=== PATIENT | female | born 1950 | race Caucasian/White ===

== ENCOUNTER 2022-08-12 19:21 | Inpatient (IN) | payer MEDICARE, SELFPAY ==
[2022-08-12] VITALS (53 sets, daily range): BP systolic 88–209; BP diastolic 56–122; PULSE 79–116; RESP 20–44; TEMP 35.9–36.1; O2SAT 46–100; BMI 40.6; BMI 38.6
--- NOTE | 2022-08-12 | CRLHL7_ITS ---
For Patients: As a result of the Century Cures Act, medical imaging exams and procedure reports are released immediately into your electronic medical record. You may view this report before your referring provider. If you have questions, please contact your health care provider. Indication: Shortness of breath Technique: Chest 1 view Comparison: March 11, 2015 Findings/Impression: Stable cardiac size. Diffusely increased interstitial markings throughout the lungs reflect edema infection. No pneumothorax or effusion. Status post bilateral shoulder arthroplasty. Dictated by Joana Flores MD @ 08/12/2022 7:45:39 PM (Electronically Signed)
[2022-08-12] MEDS: NITROGLYCERIN 0.4 MG TAB.SUBL SUBLINGUAL (19:43)
[2022-08-12] MEDS: FUROSEMIDE 10 MG/ML inj 20 MG IVP (19:43)
[2022-08-12 19:55] LABS: Troponin, Point-of-Care* 0.01 ng/ml (0.01-0.04)
[2022-08-12 20:01] LABS: Basophils Percent Auto 0.3 % (0.0-3.0); Eosinophils Percent Auto 2.8 % (0.0-7.0); Hematocrit 47.6 % (33.0-51.0); Hemoglobin* 15.8 gm/dL (12.0-16.0); Immature Granulocytes Pct Auto 0.3 %; Lymphocytes Percent Auto 18.6 % (20-44); Mean Corpuscular HGB Conc 33 gm/dL (32-36); Mean Corpuscular Hemoglobin 30 pg (26-34); Mean Corpuscular Volume 91 fL (80-100); Monocytes Percent Auto 6.5 % (0.0-11.0); Neutrophils Percent Auto 71.5 % (42.0-72.0); Platelet Count* 221 K/uL (140-440); RDW Coefficient of Variation % 13.1 % (11.5-15.5); Red Blood Count 5.22 m/uL (4.00-5.20); White Blood Count* 14.82 K/uL (4.50-11.00)
[2022-08-12 20:15] LABS: Slide Review Reflex No
[2022-08-12 20:19] LABS: D Dimer Quantitative* 0.81 ug/ml (0.00-0.50)
--- NOTE | 2022-08-12 20:28 | ED.NURSE ---
1924: BiPAP applied 10/5 Fio2 100% 1926: Oral suction-small amount of secretion. BiPap reapplied 1929: 18g L Forearm 1930: 18g R AC-labs drawn 1931: EKG Complete 1934: Portable chest X-Ray completed
[2022-08-12 20:32] LABS: Troponin I* 0.02 ng/mL (0.01-0.04)
[2022-08-12 20:41] LABS: PCR FLU A Negative PCR FLU A (Negative); PCR FLU B Negative PCR FLU B (Negative); PCR RSV Negative PCR RSV (Negative); SARS PCR* Negative SARS-CoV-2 (Negative)
[2022-08-12 20:42] LABS: HCO3 VBG 23 mmol/L (21-28); PCO2 VBG 54 mmHG (40-50); PO2 VBG 57.5 mmHG (25-47); pH VBG 7.244 (7.32-7.43)
--- NOTE | 2022-08-12 20:51 | ED_ITS ---
HPI - SOB/Dyspnea General Chief Complaint: Shortness of Breath/Dyspnea Stated Complaint: Shortness of breath Time Seen by Provider: 08/12/22 19:36 History of Present Illness HPI Narrative: 72-year-old woman presenting accompanied by her to the emergency department wheeled in groaning in apparent dyspnea. She became more abruptly short of air this afternoon with some left upper chest pain which is not very severe and not clearly pleuritic. Has had some degree of cold symptoms over at least a few weeks. Was seen 2 weeks ago noted to have some crepitus on exam along with some trace wheeze and given albuterol inhaler and azithromycin; thought to have pneumonia. Still with cough and rhinorrhea followed up yesterday and given benzonatate and refilled for albuterol. No fevers. Has screen negative on triple screen in both of these recent visits. Denies a history of pulmonary disease. She did quit smoking about 30 years ago. There is a history of CVA and venous thrombus of some sort-sounds like this was an obstetrical complication-and does have a diagnosis of sleep apnea and has been using her CPAP. She continues to take clopidogrel. Denies a history of coronary artery disease. Has not noted any recent weight fluctuations. Related Data Home Medications Medication Instructions Recorded Confirmed atenolol 50 mg tablet 50 mg PO .COMPLEX 07/10/22 08/12/22 atorvastatin 10 mg tablet 10 mg PO DAILY 07/10/22 08/12/22 clopidogrel 75 mg tablet 75 mg PO QAM 07/10/22 08/12/22 lisinopril 20 mg tablet 20 mg PO DAILY 07/10/22 08/12/22 omeprazole 40 mg capsule,delayed 40 mg PO DAILY 07/10/22 08/12/22 release triamcinolone acetonide 0.1 % 1 applic topical BID PRN 07/10/22 08/12/22 topical cream Previous Rx's Medication Instructions Recorded albuterol sulfate 90 mcg/actuation 2 puff inhalation Q4-6H PRN 08/11/22 aerosol inhaler shortness of breath or wheezing #8.5 grams benzonatate 100 mg capsule 100 mg PO BID-TID PRN cough #14 08/11/22 caps Allergies Allergy/AdvReac Type Severity Reaction Status Date / Time adhesive tape Allergy Unknown Verified 08/12/22 21:35 ibuprofen Allergy Unknown Verified 08/12/22 21:35 meperidine [From Demerol] Allergy Unknown Verified 08/12/22 21:35 nickel Allergy Unknown Verified 08/12/22 21:35 oxycodone AdvReac Mild weird Verified 08/12/22 21:35 dreams hydrocodone AdvReac weird Verified 08/12/22 21:35 dreams Review of Systems Status of ROS: Reports: 10 or more systems reviewed and unremarkable except as noted in History and below PFSH PFS Medical History (Updated 08/12/22 @ 21:41 by Erickson Montalvo MD) Acute gastric ulcer Carpal tunnel syndrome Chronic eczema CVA (cerebral vascular accident) Cystocele DVT (deep venous thrombosis) Hearing loss, bilateral History of anemia Hypertension Ischemic stroke SELINA on CPAP Surgical History (Updated 08/12/22 @ 21:22 by Selena Cook MD) H/O vaginal hysterectomy History of total left knee replacement History of total replacement of left shoulder joint Hx of appendectomy Social History Smoking Status: Former smoker Exam Narrative: Exam Narrative: Is clearly uncomfortable. Fatigued. Groaning in discomfort. Quite tachypneic. Quite labored in breathing. Looks pale or little [place] on her face. Not diaphoretic. I evaluate her during triage and cardiac room. Presenting with oxygen saturation at 46% is already being transitioned to BiPAP. Okay oropharynx is a little sticky. Audible crepitus throughout lungs. Auscultation reveals same but no wheeze. Heart is tachycardic and appears to be in a regular rhythm. Pain is not reproducible to palpation over the chest wall. Lower extremities with mild pretibial pitting edema and mild discoloration of venous stasis. Abdomen is overweight soft and nontender. Const: Vital Signs, click to edit/add: Vital Signs - 24 hr 08/12/22 19:31 08/12/22 19:30 Temperature 97.0 F L Pulse Rate [Pulse Oximeter] 116 H Respiratory Rate 36 H Blood Pressure [Le ft Upper Arm] 209/122 H Pulse Oximetry 46 L 46 L Oxygen Delivery Me thod Room Air Documenting provider has reviewed patient's vital signs: yes Course Vital Signs Vital signs: Initial Vital Signs Pulse Oximetry 46 L 01/13/23 19:30 Vital Signs Pulse Oximetry 46 L 08/12/22 19:30 Temperature 97.0 F L 08/12/22 19:31 Pulse Rate 116 H 08/12/22 19:31 Respiratory Rate 36 H 08/12/22 19:31 Blood Pressure 209/122 H 08/12/22 19:31 Pulse Oximetry 46 L 08/12/22 19:31 Oxygen Delivery Method 08/12/22 19:31 MDM - SOB/Dyspnea MDM Narrative Medical decision making narrative: Placed on BiPAP. Oxygenation rapidly improves. Able to titrate down relatively quickly. Coloration improves. Appears more mentally alert as well. Calmer. I do review initial chest x-ray one view portable which appears to show diffuse and markedly increased interstitial markings. I do not appreciate effusion. Possibly some mild cardiomegaly though recumbent portable. Does not have an underlying diagnosis of heart failure however I do order 20 mg of IV Lasix and a nitroglycerin noting rather elevated initial blood pressures as well. Also given DuoNeb. I believe as she became more comfortable blood pressure also dropped to I believe 1-teens over 60s Differential includes CHF exacerbation, exacerbation of URI with rapid pulmonary edema, pneumonia, pulmonary embolus, ischemic cardiac event. Does indeed have mildly elevated D-dimer in the setting of elevated white count at over 14,000. Venous blood gas initially with a pH of 7.24; respiratory acidosis. Have spoken with our hospitalist anticipating admission. Will be receiving a CTA of the chest. Attempted to use commode off BiPAP briefly but desaturated. Venous blood gas is markedly improved on recheck. Chest CTA is pending at time of handoff. Medical Records Attestation: I reviewed the patient's medical records. Lab Data Attestation: I reviewed the patient's lab results. Labs: Lab Results 08/12/22 08/12/22 08/12/22 Range/Units 19:30 19:30 19:30 WBC 14.82 H (4.50-11.00) K/uL RBC 5.22 H (4.00-5.20) m/uL Hgb 15.8 (12.0-16.0) gm/dL Hct 47.6 (33.0-51.0) % MCV 91 (80-100) fL MCH 30 (26-34) pg MCHC 33 (32-36) gm/dL RDW Coeff of Zack 13.1 (11.5-15.5) % Plt Count 221 (140-440) K/uL Neut % (Auto) 71.5 (42.0-72.0) % Lymph % (Auto) 18.6 L (20-44) % [place] % (Auto) 6.5 (0.0-11.0) % Eos % (Auto) 2.8 (0.0-7.0) % Baso % (Auto) 0.3 (0.0-3.0) % Neut # (Auto) 10.60 H (1.7-7.0) K/uL Lymph # (Auto) 2.80 (0.90-2.90) K/uL [place] # (Auto) 1.00 H (0.00-0.90) K/UL Eos # (Auto) 0.40 (0.00-0.50) K/uL Baso # (Auto) 0.00 (0.00-0.30) K/uL D-Dimer Quant (PE/DVT) 0.81 H (0.00-0.50) ug/ml VBG pH (7.32-7.43) VBG pCO2 (40-50) mmHG VBG pO2 (25-47) mmHG VBG HCO3 (21-28) mmol/L Troponin I (0.01-0.04) ng/mL SARS-CoV-2 (PCR) Negative SARS-CoV-2 (Negative) Influenza Type A (PCR) Negative PCR FLU A (Negative) Influenza Type B (PCR) Negative PCR FLU B (Negative) RSV (PCR) Negative PCR RSV (Negative) POC Troponin I (0.01-0.04) ng/ml 08/12/22 08/12/22 08/12/22 Range/Units 19:30 19:30 19:30 WBC (4.50-11.00) K/uL RBC (4.00-5.20) m/uL Hgb (12.0-16.0) gm/dL Hct (33.0-51.0) % MCV (80-100) fL MCH (26-34) pg MCHC (32-36) gm/dL RDW Coeff of Zack (11.5-15.5) % Plt Count (140-440) K/uL Neut % (Auto) (42.0-72.0) % Lymph % (Auto) (20-44) % [place] % (Auto) (0.0-11.0) % Eos % (Auto) (0.0-7.0) % Baso % (Auto) (0.0-3.0) % Neut # (Auto) (1.7-7.0) K/uL Lymph # (Auto) (0.90-2.90) K/uL [place] # (Auto) (0.00-0.90) K/UL Eos # (Auto) (0.00-0.50) K/uL Baso # (Auto) (0.00-0.30) K/uL D-Dimer Quant (PE/DVT) (0.00-0.50) ug/ml VBG pH 7.244 L* (7.32-7.43) VBG pCO2 54 H (40-50) mmHG VBG pO2 57.5 H (25-47) mmHG VBG HCO3 23 (21-28) mmol/L Troponin I 0.02 (0.01-0.04) ng/mL SARS-CoV-2 (PCR) (Negative) Influenza Type A (PCR) (Negative) Influenza Type B (PCR) (Negative) RSV (PCR) (Negative) POC Troponin I 0.01 (0.01-0.04) ng/ml ECG Data Attestation: I personally reviewed and interpreted this ECG as follows: (Normal sinus rate of 99. No ST elevation or depression. No Q-waves. ) Critical Care Time Critical Care Time Critical Care Time: Yes Attestation: The patient required my highest level preparedness to intervene emergently and I personally spent this critical care time directly and personally managing the patient. This critical care time included: Obtaining a history; Examining the patient; Pulse oximetry; Ordering and reviewing of studies; Arranging urgent treatment with development of a management plan; Evaluation of patients response to treatment; Frequent reassessment discussions with other providers. This critical care time was performed to assess and manage the high probability of imminent life-threatening deterioration that could result in multiorgan failure. It was exclusive of separate billable procedures and treating other patients and teaching time. Total Critical Care Time in Minutes: 70 Discharge Plan Discharge Clinical Impression: Pulmonary edema, Respiratory failure Patient Disposition: Admitted As Inpatient Prescriptions: No Action triamcinolone acetonide 0.1 % cream 1 applic topical BID PRN Label Comments: APPLY TOPICALLY TO THE AFFECTED AREA TWICE DAILY NEEDED FOR RASH atorvastatin 10 mg tablet 10 mg PO DAILY omeprazole 40 mg capsule,delayed release(DR/EC) 40 mg PO DAILY clopidogrel 75 mg tablet 75 mg PO QAM lisinopril 20 mg tablet 20 mg PO DAILY atenolol 50 mg tablet 50 mg PO .COMPLEX Label Comments: TAKE 1 TABLET BY MOUTH EVERY MORNING AND 1/2 TABLET IN THE AFTERNOON. Rx Instructions: 50 mg orally Take one tablet in the morning and one-half tablet in the afternoon; benzonatate 100 mg capsule 100 mg PO BID-TID PRN (Reason: cough) Qty: 14 0RF albuterol sulfate 90 mcg/actuation HFA aerosol inhaler 2 puff inhalation Q4-6H PRN (Reason: shortness of breath or wheezing) Qty: 8.5 0RF Follow Up/Referrals: Mikala Middleton MD [Primary Care Provider] -
--- NOTE | 2022-08-12 20:55 | CRLHL7_ITS ---
For Patients: As a result of the Century Cures Act, medical imaging exams and procedure reports are released immediately into your electronic medical record. You may view this report before your referring provider. If you have questions, please contact your health care provider. INDICATION: Respiratory failure, elevated D-dimer TECHNIQUE: CT chest with i.v. contrast using pulmonary angiographic technique. Coronal and sagittal reformats were obtained. CONTRAST: 95 mL Isovue 370 COMPARISON: 04/07/2011 FINDINGS: Cardiovascular: The pulmonary arteries are unremarkable in enhancement with no evidence of acute pulmonary embolism. The heart has an unremarkable appearance and size. No sign of aneurysm in the thoracic aorta. Mediastinum: Bilateral hilar lymph nodes present measuring up to 8 mm. Lung: Ground-glass infiltrates with smooth septal thickening is present within the right lower lobe. Patchy atelectasis is seen in the lingula and left lower lobe. Pleura and pericardium: No sign of pleural effusion seen. No significant pericardial effusion is present. Chest wall and axilla: No mass or adenopathy seen. Evaluation of the soft tissues and osseous structures near the thoracic inlet are limited by beam hardening artifacts from the bilateral shoulder prosthesis. Mild bilateral axillary adenopathy is present with lymph nodes measuring up to 1 cm and slightly increased from prior exam. Bone: Unremarkable for age. Upper abdomen: There are 2 stable small hypodense lesions in the dome of the liver measuring up to 6 mm. Tiny gallstones are partially visualized within the gallbladder. IMPRESSIONS: 1. No CT evidence of acute pulmonary emboli seen. 2. Mild bilateral axillary adenopathy is present with lymph nodes measuring up to 1 cm and slightly increased from prior exam. 3. Ground-glass infiltrates with smooth septal thickening is present within the right lower lobe. Patchy atelectasis is seen in the lingula and left lower lobe. Findings may be due to asymmetric pulmonary edema. Dictated by Jad Nicholson MD @ 08/12/2022 10:06:37 PM Please note that all CT scans at this facility use dose modulation, iterative reconstruction, and/or weight-based dosing when appropriate to reduce radiation dose to as low as reasonably achievable. Dictated by: Jad Nicholson MD @ 08/12/2022 22:06:40 (Electronically Signed)
[2022-08-12 21:17] LABS: Albumin* 4.8 g/dL (3.3-5.0); Chloride* 96 mmol/L (96-114)
[2022-08-12 21:18] LABS: Potassium* 3.7 mmol/L (3.6-5.1); Sodium* 131 mmol/L (135-149)
[2022-08-12 21:20] LABS: Bilirubin Direct* 0.4 mg/dL (0.0-0.5); Bilirubin Total* 1.1 mg/dL (0.1-1.5); Carbon Dioxide* 21 mmol/L (20-32); Creatinine* 0.6 mg/dL (0.5-1.5); Est. Creatinine Clearance* 35.45; Estimated Glomerular Filt Rate 94 ml/min; Total Protein* 8.1 g/dL (6.0-8.3)
[2022-08-12 21:21] LABS: Alanine Aminotransferase* 29 U/L (4-35); Alkaline Phosphatase* 80 U/L (40-150); Aspartate Amino Transferase* 40 U/L (12-35); Blood Urea Nitrogen* 15 mg/dL (7-30); Glucose* 233 mg/dL (60-115)
[2022-08-12 21:23] LABS: C Reactive Protein* 1.5 mg/dL (0.5-1.0)
[2022-08-12 21:33] LABS: HCO3 VBG 27 mmol/L (21-28); PCO2 VBG 44 mmHG (40-50); pH VBG 7.389 (7.32-7.43)
[2022-08-12 21:35] LABS: NT Pro B Type NatriureticPept* 963 pg/mL
[2022-08-12 21:37] LABS: Procalcitonin* 0.04 ng/mL (<0.50)
--- NOTE | 2022-08-12 22:45 | PM.IMHP1 ---
Hospitalist- H&P: HPI History of Present Illness Date Seen: 08/12/22 Chief complaint: Shortness of breath Narrative: Ritika Monroe is a 72 year old female who presented to the emergency room with her today with acute on chronic URI symptoms. Patient has been sick with cough and congestion for the past 2 weeks; initially seen in urgent care and given azithromycin and an inhaler. Symptoms did not improve, she was seen again yesterday given another inhaler and Tessalon Perles. This afternoon, age she felt that symptoms were worsening; began having severe dyspnea while washing dishes this evening. then brought her to the emergency room. Patient has not been having fever. She has been having a productive cough without hemoptysis. She has not had lower extremity edema. She has been sleeping well with her CPAP. ER course and findings: - initial oxygen sat 46% on room air in triage - patient immediately placed on BiPAP - mild elevation of D-dimer; CT chest did not reveal PE, mild bilateral axillary adenopathy noted, ground-glass infiltrates in right lower lobe and patchy atelectasis in lingula and left lower lobe - normal procalcitonin, mild leukocytosis with WBC of 14 - acidotic on initial VBG; improved to normal after 90 minutes on BiPAP - given nitro and Lasix IV - Green catheter placed Given patient's acute hypoxic respiratory failure, she is admitted to the hospital for management. Ritika's past medical history updated in tabs below; notable history of SELINA, has been compliant with her CPAP. She also has a history of CVA in 2014 with no residual neurological deficits. Ritika smoked from [id number]. She drinks 1 alcoholic drink every other night. Her Dylon would be medical decision maker if needed, she requests full code status. Review of Systems Status of ROS: Reports: 10 or more systems reviewed and unremarkable except as noted in History and below Narrative: - history of chronic cough, patient believes this is related to allergies. PCP has postulated maybe COPD (no PFTs) - no weight changes - has noted some pinkish discoloration of right lower extremity anteriorly and bilateral hands; was going to discuss this with her PCP at appointment next week. No pruritus PFSH PFSH Medical History (Updated 08/12/22 @ 23:10 by Selena Cook MD) Acute gastric ulcer Carpal tunnel syndrome Chronic eczema CVA (cerebral vascular accident) Cystocele Diastolic CHF DVT (deep venous thrombosis) Hearing loss, bilateral History of anemia Hypertension Ischemic stroke SELINA on CPAP Surgical History (Updated 08/12/22 @ 21:22 by Selena Cook MD) H/O vaginal hysterectomy History of total left knee replacement History of total replacement of left shoulder joint Hx of appendectomy Social History (Updated 08/12/22 @ 23:06 by Selena Cook MD) Narrative: Patient lives with in [place], has 3 adult children. 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 She smoked from [id number]. She drinks 1 glass of wine every other day during the winter; 1 glass of beer every other day during the summer. Requests full code status. Smoking Status: Former smoker Do you use any of these nicotine containing products: None Second hand tobacco smoke exposure: No Meds Home Medications and Allergies Home Medications Medication Instructions Recorded Confirmed Type atenolol 50 mg tablet 50 mg PO .COMPLEX 07/10/22 08/12/22 History atorvastatin 10 mg tablet 10 mg PO DAILY 07/10/22 08/12/22 History clopidogrel 75 mg tablet 75 mg PO QAM 07/10/22 08/12/22 History lisinopril 20 mg tablet 20 mg PO DAILY 07/10/22 08/12/22 History omeprazole 40 mg capsule,delayed 40 mg PO DAILY 07/10/22 08/12/22 History release triamcinolone acetonide 0.1 % 1 applic topical BID PRN 07/10/22 08/12/22 History topical cream Allergies Allergy/AdvReac Type Severity Reaction Status Date / Time adhesive tape Allergy Unknown Verified 08/12/22 21:55 ibuprofen Allergy Unknown Verified 08/12/22 21:55 meperidine [From Demerol] Allergy Unknown Verified 08/12/22 21:55 nickel Allergy Unknown Verified 08/12/22 21:55 oxycodone AdvReac Mild weird Verified 08/12/22 21:55 dreams hydrocodone AdvReac weird Verified 08/12/22 21:55 dreams Exam Narrative: Exam Narrative: GEN: Alert and oriented, wearing BiPAP. When patient arrived to the ER, she had 1 word dyspnea. When I see her, she is speaking in full sentences HEENT: EOMIs bilaterally, no scleral icterus CV: RRR, No concerning murmurs, rubs, or gallops R: Intermittent tachypnea, wheezing at bilateral apices noted Ext: wwp, no concerning edema Skin: Faint erythema of right lower extremity anteriorly, not warm or tender. Smaller areas of faint erythema noted on bilateral upper extremities Neuro: No focal deficits Psych: Appropriate Const: Vital Signs, click to edit/add: Vital Signs - 24 hr 08/12/22 19:31 08/12/22 19:30 08/12/22 20:21 Temperature 97.0 F L Pulse Rate 89 Pulse Rate [Pulse Oximeter] 116 H Respiratory Rate 36 H Blood Pressure Blood Pressure [Le ft Upper Arm] 209/122 H Pulse Oximetry 46 L 46 L 97 Oxygen Delivery Me thod Room Air BiPAP Fraction of Inspir ed Oxygen 0.7 08/12/22 20:22 08/12/22 20:25 08/12/22 20:27 Temperature Pulse Rate 89 88 89 Pulse Rate [Pulse Oximeter] Respiratory Rate Blood Pressure 108/71 106/68 Blood Pressure [Le ft Upper Arm] Pulse Oximetry 97 97 97 Oxygen Delivery Me thod Fraction of Inspir ed Oxygen 08/12/22 20:30 08/12/22 20:32 08/12/22 20:35 Temperature Pulse Rate 90 89 89 Pulse Rate [Pulse Oximeter] Respiratory Rate Blood Pressure 116/72 Blood Pressure [Le ft Upper Arm] Pulse Oximetry 98 98 97 Oxygen Delivery Me thod Fraction of Inspir ed Oxygen 08/12/22 20:37 08/12/22 20:40 08/12/22 20:42 Temperature Pulse Rate 89 88 88 Pulse Rate [Pulse Oximeter] Respiratory Rate Blood Pressure 111/56 L 114/67 Blood Pressure [Le ft Upper Arm] Pulse Oximetry 98 98 98 Oxygen Delivery Me thod Fraction of Inspir ed Oxygen 0.6 08/12/22 20:45 08/12/22 20:47 08/12/22 20:49 Temperature Pulse Rate 88 87 89 Pulse Rate [Pulse Oximeter] Respiratory Rate Blood Pressure 88/65 L 110/75 Blood Pressure [Le ft Upper Arm] Pulse Oximetry 98 98 96 Oxygen Delivery Me thod Fraction of Inspir ed Oxygen 08/12/22 20:50 08/12/22 20:52 08/12/22 20:55 Temperature Pulse Rate 88 88 88 Pulse Rate [Pulse Oximeter] Respiratory Rate Blood Pressure 114/76 Blood Pressure [Le ft Upper Arm] Pulse Oximetry 98 98 98 Oxygen Delivery Me thod Fraction of Inspir ed Oxygen 08/12/22 20:57 08/12/22 21:00 08/12/22 21:02 Temperature Pulse Rate 88 83 87 Pulse Rate [Pulse Oximeter] Respiratory Rate Blood Pressure 115/76 117/86 Blood Pressure [Le ft Upper Arm] Pulse Oximetry 98 98 98 Oxygen Delivery Me thod Fraction of Inspir ed Oxygen 08/12/22 21:05 08/12/22 21:07 08/12/22 21:17 Temperature Pulse Rate 86 90 Pulse Rate [Pulse Oximeter] Respiratory Rate Blood Pressure 116/100 H 137/90 H Blood Pressure [Le ft Upper Arm] Pulse Oximetry 98 99 Oxygen Delivery Me thod Fraction of Inspir ed Oxygen 08/12/22 21:18 08/12/22 21:22 08/12/22 21:28 Temperature Pulse Rate 89 88 88 Pulse Rate [Pulse Oximeter] Respiratory Rate Blood Pressure 125/78 137/81 Blood Pressure [Le ft Upper Arm] Pulse Oximetry 99 98 98 Oxygen Delivery Me thod Fraction of Inspir ed Oxygen 08/12/22 21:30 08/12/22 21:32 08/12/22 21:55 Temperature Pulse Rate 89 87 89 Pulse Rate [Pulse Oximeter] Respiratory Rate Blood Pressure 133/88 Blood Pressure [Le ft Upper Arm] Pulse Oximetry 97 98 100 Oxygen Delivery Me thod Fraction of Inspir ed Oxygen 08/12/22 21:58 08/12/22 22:00 08/12/22 22:02 Temperature Pulse Rate 88 87 87 Pulse Rate [Pulse Oximeter] Respiratory Rate Blood Pressure 159/77 H 148/77 H Blood Pressure [Le ft Upper Arm] Pulse Oximetry 99 99 99 Oxygen Delivery Me thod Fraction of Inspir ed Oxygen 0.5 08/12/22 22:07 08/12/22 22:12 08/12/22 22:15 Temperature Pulse Rate 85 85 83 Pulse Rate [Pulse Oximeter] Respiratory Rate Blood Pressure 152/75 H 140/70 H Blood Pressure [Le ft Upper Arm] Pulse Oximetry 99 98 97 Oxygen Delivery Me thod Fraction of Inspir ed Oxygen 08/12/22 22:17 08/12/22 22:22 08/12/22 22:28 Temperature Pulse Rate 85 86 85 Pulse Rate [Pulse Oximeter] Respiratory Rate Blood Pressure 140/79 H 157/88 H 157/79 H Blood Pressure [Le ft Upper Arm] Pulse Oximetry 99 99 98 Oxygen Delivery Me thod Fraction of Inspir ed Oxygen 08/12/22 22:30 08/12/22 22:32 08/12/22 22:38 Temperature Pulse Rate 86 86 86 Pulse Rate [Pulse Oximeter] Respiratory Rate Blood Pressure 159/100 H 151/88 H Blood Pressure [Le ft Upper Arm] Pulse Oximetry 99 99 99 Oxygen Delivery Me thod Fraction of Inspir ed Oxygen Hospitalist - H&P: Result Labs Labs: Short CBC 08/12/22 Range/Units 19:30 WBC 14.82 H (4.50-11.00) K/uL Hgb 15.8 (12.0-16.0) gm/dL Hct 47.6 (33.0-51.0) % Plt Count 221 (140-440) K/uL BMP 08/12/22 19:43 Sodium 131 L Potassium 3.7 Chloride 96 Carbon Dioxide 21 BUN 15 Creatinine 0.6 Glucose 233 H Calcium 9.0 Cardiac Enzymes 08/12/22 Range/Units 19:30 Troponin I 0.02 (0.01-0.04) ng/mL Liver Function 08/12/22 Range/Units 19:43 Total Bilirubin 1.1 (0.1-1.5) mg/dL Direct Bilirubin 0.4 (0.0-0.5) mg/dL AST 40 H (12-35) U/L ALT 29 (4-35) U/L Alkaline Phosphatase 80 (40-150) U/L Albumin 4.8 (3.3-5.0) g/dL Assessment and Plan Assessment and plan (1) Acute respiratory failure with hypoxia: Problem comment: - multifactorial (diastolic dysfunction noted on 2014 TTE, recent URI, possible COPD, known SELINA) - requiring BiPAP at this time - continue BiPAP, cover with steroids giving wheezing, Zosyn tonight given leukocytosis and CT findings - repeat TTE - respiratory therapy consult Status: Acute (2) Pulmonary edema: Problem comment: - given Lasix x1 in the ED, reassess in the morning to see if further diuretics are needed Status: Acute (3) Wheeze: Problem comment: - possible COPD; treat with steroids Status: Acute (4) SELINA on CPAP: Status: Acute Plan - per above - Lovenox for prophylaxis - updated at bedside, questions answered
[2022-08-12 22:48] LABS: Appearance Urine Clear (Clear); Bilirubin Urine Negative (Negative); Blood Urine Trace-intact (Negative); Color Urine Yellow (Yellow); Glucose Urine Negative (Negative); Ketones Urine Negative (Negative); Leukocyte Esterase Urine Negative (Negative); Nitrite Urine Negative (Negative); Protein Urine Negative (Negative); Urobilinogen Urine 0.2 (0.2-1.0)
[2022-08-12 23:02] LABS: RBC Urine 0-2 (0-2); WBC Urine 0-2 (0-5)
[2022-08-13] VITALS (9 sets, daily range): BP systolic 105–241; BP diastolic 55–112; PULSE 73–92; RESP 16–24; TEMP 35.7–36.4; O2SAT 91–94
[2022-08-13] MEDS: METHYLPREDNISOLONE SOD SUCC 62.5 MG/ML (125) 125 MG IVP (00:07)
[2022-08-13] MEDS: PIPERACILLIN/TAZOBACTAM 3.375 GM in 0.9 % SODIUM CHLORIDE Mini-bag 100 ML IVPB ×5 (00:07→23:58)
[2022-08-13] MEDS: 0.9 % SODIUM CHLORIDE 250 ml IV ×2 (00:11→23:58)
--- NOTE | 2022-08-13 01:51 | PC.NURSE ---
Addendum entered by Lorrie Newsome RN 08/13/22 06:05: Pt has remained on Bipap, FIO2 @ 25% for sats low to mid 90's. Diuresed 1400cc. Original Note: Admission note: Pt admitted to room CCU3 from ED via stretcher on Bipap @ 2315 dx: resp failure. Pt alert, able to speak in full sentences and answer all questions appropriately. Bipap @ 50% FIO2 upon admission, weaned down to 25% to keep sats >90%, lungs very diminished w/ scattered crackles in bases, only audible wheeze present. Admission completed, questions answered, oriented to unit. Dr. Cook suggested keeping Bipap on throughout the night.
[2022-08-13 06:49] LABS: HCO3 VBG 27 mmol/L (21-28); PCO2 VBG 39 mmHG (40-50); PO2 VBG 45.2 mmHG (25-47); pH VBG 7.451 (7.32-7.43)
[2022-08-13 06:52] LABS: Lactate* 0.8 mmol/L (0.5-1.9)
[2022-08-13 07:00] LABS: Basophils Absolute Auto 0.01 K/uL (0.00-0.30); Basophils Percent Auto 0.1 % (0.0-3.0); Eosinophils Absolute Auto 0.01 K/uL (0.00-0.50); Eosinophils Percent Auto 0.1 % (0.0-7.0); Hematocrit 42.7 % (33.0-51.0); Hemoglobin* 14.3 gm/dL (12.0-16.0); Immature Granulocytes Abs Auto 0.01 K/uL (0.00-0.30); Immature Granulocytes Pct Auto 0.1 %; Lymphocytes Percent Auto 7.9 % (20-44); Mean Corpuscular HGB Conc 34 gm/dL (32-36); Mean Corpuscular Hemoglobin 30 pg (26-34); Mean Corpuscular Volume 89 fL (80-100); Monocytes Percent Auto 0.9 % (0.0-11.0); Neutrophils Percent Auto 90.9 % (42.0-72.0); Platelet Count* 153 K/uL (140-440); RDW Coefficient of Variation % 13.1 % (11.5-15.5); Red Blood Count 4.78 m/uL (4.00-5.20); White Blood Count* 6.87 K/uL (4.50-11.00)
[2022-08-13 07:20] LABS: Albumin* 4.3 g/dL (3.3-5.0); Slide Review Reflex No
[2022-08-13 07:21] LABS: Chloride* 102 mmol/L (96-114); Potassium* 4.4 mmol/L (3.6-5.1); Sodium* 133 mmol/L (135-149)
[2022-08-13 07:23] LABS: Aspartate Amino Transferase* 45 U/L (12-35); Bilirubin Total* 0.9 mg/dL (0.1-1.5); Carbon Dioxide* 25 mmol/L (20-32); Creatinine* 0.4 mg/dL (0.5-1.5); Est. Creatinine Clearance* 37.24; Estimated Glomerular Filt Rate 104 ml/min; Total Protein* 7.3 g/dL (6.0-8.3)
[2022-08-13 07:24] LABS: Alanine Aminotransferase* 28 U/L (4-35); Alkaline Phosphatase* 53 U/L (40-150); Blood Urea Nitrogen* 13 mg/dL (7-30); Calcium* 8.8 mg/dL (8.4-10.6); Glucose* 179 mg/dL (60-115)
[2022-08-13 07:38] LABS: Procalcitonin* 0.09 ng/mL (<0.50)
[2022-08-13 07:41] LABS: Troponin I* 0.27 ng/mL (0.01-0.04)
[2022-08-13] MEDS: OMEPRAZOLE 20 MG CAPSULE DR 40 MG PO (08:15)
[2022-08-13] MEDS: lisinopriL 20 MG TABLET PO (08:17)
[2022-08-13] MEDS: predniSONE 20 MG TABLET 60 MG PO (08:17)
[2022-08-13] MEDS: atenoloL 50 MG TABLET PO (08:17)
[2022-08-13] MEDS: ATORVASTATIN 10 MG TABLET PO (08:18)
[2022-08-13] MEDS: CLOPIDOGREL 75 MG TABLET PO (08:18)
[2022-08-13] MEDS: AMLODIPINE 5 MG TABLET PO (08:42)
[2022-08-13] MEDS: IPRAT-ALBUT 0.5-2.5 MG/3 ML NEB 1 NEB IH ×5 (08:42→23:58)
[2022-08-13] MEDS: SODIUM CHLORIDE 0.9 % (FLUSH) 10 ML SYRINGE 5 ML IVF ×3 (08:49→21:20)
[2022-08-13] MEDS: FUROSEMIDE 10 MG/ML inj 40 MG IVP (08:49)
[2022-08-13] MEDS: POTASSIUM BICARB 25 MEQ EFFERVESCENT TAB PO ×2 (11:53→12:42)
[2022-08-13] MEDS: MAGNESIUM SULFATE 2 GM/50 ML PIGGYBACK IVPB (11:55)
[2022-08-13] MEDS: atenoloL 25 MG TABLET PO (12:30)
[2022-08-13] MEDS: ACETAMINOPHEN 325 MG TABLET 975 MG PO (12:41)
--- NOTE | 2022-08-13 14:18 | PM.IMPN1 ---
Progress Note: A&P Assessment and plan (1) Acute respiratory failure with hypoxia: Problem details: - multifactorial (diastolic dysfunction noted on 2015 TTE, recent URI, possible COPD, known SELINA, possible tachycardia induced cardiomyopathy) - requiring BiPAP on presentation, later requiring only oxygen support via nasal cannula at low flow - discontinue BiPAP, utilize low-flow oxygen as needed, cover with steroids giving wheezing, Zosyn tonight given leukocytosis and CT findings - repeat TTE - respiratory therapy consult Status: Acute (2) Pulmonary edema: Problem details: - given Lasix x1 in the ED, and another dose now Status: Acute (3) Wheeze: Problem details: - possible COPD versus heart failure associated wheezing; treat with steroids Status: Acute (4) SELINA on CPAP: Status: Acute (5) Non-ST elevation myocardial infarction (NSTEMI): Status: Acute Plan 1. Preliminary echocardiogram without regional wall motion abnormalities. 2. Electrocardiogram without ST segment changes. 3. Daily dosing of IV furosemide for now. 4. Single dose of amlodipine 5 mg orally. 5. Continue on atenolol, lisinopril, statin. 6. Continue on clopidogrel for now. Consider adding aspirin. 7. Continue telemetry. 8. Monitor troponin I again. 9. Continue with other supportive efforts 10. Reviewed with patient. Answered her questions. She is agreeable. Time Spent With Patient Total time spent: 45 minutes Subjective Time Seen by Provider: 08:30 Date Seen: 08/13/22 Interval history: Hospital day 2. Breathing is improved. No longer has a dry, hacky cough. Denies having dyspnea at rest. Denies chest heaviness, pressure, tightness, or pain. Denies syncope or near-syncope. Denies nausea vomiting. She is actually hungry. Tells me she had a recent URI as well as community-acquired pneumonia for which she received antibiotic treatment. Denies diarrhea, dysuria, urgency, frequency, hematuria. No other blood loss. No trauma or injury. No recent travel. Exam Narrative: Exam Narrative: Talkative, articulate, cooperative. Mood and affect are congruent. Alert, oriented to self, place, time, situation. Appears comfortable. Has externally audible wheezing, or stridor. Nevertheless appears to be in no respiratory distress. Lungs with wheezing and rhonchi but no rales. Chest wall excursions are full. No CVA tenderness. Heart tones with regular rhythm, normal S1-S2. Distant tones. Abdomen is obese with active bowel sounds, soft, nontender. Extremities with trace edema pretibially bilaterally. Moves all 4 extremities. Const: Vital Signs, click to edit/add: Vital Signs - 24 hr 08/12/22 19:31 08/12/22 19:30 08/12/22 20:21 Temperature 97.0 F L Pulse Rate 89 Pulse Rate [Pulse Oximeter] 116 H Respiratory Rate 36 H Blood Pressure Blood Pressure [Le ft Upper Arm] 209/122 H Blood Pressure [Ri ght Arm] Pulse Oximetry 46 L 46 L 97 Oxygen Delivery Me thod Room Air BiPAP Oxygen Flow Rate Fraction of Inspir ed Oxygen 0.7 08/12/22 20:22 08/12/22 20:25 08/12/22 20:27 Temperature Pulse Rate 89 88 89 Pulse Rate [Pulse Oximeter] Respiratory Rate Blood Pressure 108/71 106/68 Blood Pressure [Le ft Upper Arm] Blood Pressure [Ri ght Arm] Pulse Oximetry 97 97 97 Oxygen Delivery Me thod Oxygen Flow Rate Fraction of Inspir ed Oxygen 08/12/22 20:30 08/12/22 20:32 08/12/22 20:35 Temperature Pulse Rate 90 89 89 Pulse Rate [Pulse Oximeter] Respiratory Rate Blood Pressure 116/72 Blood Pressure [Le ft Upper Arm] Blood Pressure [Ri ght Arm] Pulse Oximetry 98 98 97 Oxygen Delivery Me thod Oxygen Flow Rate Fraction of Inspir ed Oxygen 08/12/22 20:37 08/12/22 20:40 08/12/22 20:42 Temperature Pulse Rate 89 88 88 Pulse Rate [Pulse Oximeter] Respiratory Rate Blood Pressure 111/56 L 114/67 Blood Pressure [Le ft Upper Arm] Blood Pressure [Ri ght Arm] Pulse Oximetry 98 98 98 Oxygen Delivery Me thod Oxygen Flow Rate Fraction of Inspir ed Oxygen 0.6 08/12/22 20:45 08/12/22 20:47 08/12/22 20:49 Temperature Pulse Rate 88 87 89 Pulse Rate [Pulse Oximeter] Respiratory Rate Blood Pressure 88/65 L 110/75 Blood Pressure [Le ft Upper Arm] Blood Pressure [Ri ght Arm] Pulse Oximetry 98 98 96 Oxygen Delivery Me thod Oxygen Flow Rate Fraction of Inspir ed Oxygen 08/12/22 20:50 08/12/22 20:52 08/12/22 20:55 Temperature Pulse Rate 88 88 88 Pulse Rate [Pulse Oximeter] Respiratory Rate Blood Pressure 114/76 Blood Pressure [Le ft Upper Arm] Blood Pressure [Ri ght Arm] Pulse Oximetry 98 98 98 Oxygen Delivery Me thod Oxygen Flow Rate Fraction of Inspir ed Oxygen 08/12/22 20:57 08/12/22 21:00 08/12/22 21:02 Temperature Pulse Rate 88 83 87 Pulse Rate [Pulse Oximeter] Respiratory Rate Blood Pressure 115/76 117/86 Blood Pressure [Le ft Upper Arm] Blood Pressure [Ri ght Arm] Pulse Oximetry 98 98 98 Oxygen Delivery Me thod Oxygen Flow Rate Fraction of Inspir ed Oxygen 08/12/22 21:05 08/12/22 21:07 08/12/22 21:17 Temperature Pulse Rate 86 90 Pulse Rate [Pulse Oximeter] Respiratory Rate Blood Pressure 116/100 H 137/90 H Blood Pressure [Le ft Upper Arm] Blood Pressure [Ri ght Arm] Pulse Oximetry 98 99 Oxygen Delivery Me thod Oxygen Flow Rate Fraction of Inspir ed Oxygen 08/12/22 21:18 08/12/22 21:22 08/12/22 21:28 Temperature Pulse Rate 89 88 88 Pulse Rate [Pulse Oximeter] Respiratory Rate Blood Pressure 125/78 137/81 Blood Pressure [Le ft Upper Arm] Blood Pressure [Ri ght Arm] Pulse Oximetry 99 98 98 Oxygen Delivery Me thod Oxygen Flow Rate Fraction of Inspir ed Oxygen 08/12/22 21:30 08/12/22 21:32 08/12/22 21:55 Temperature Pulse Rate 89 87 89 Pulse Rate [Pulse Oximeter] Respiratory Rate Blood Pressure 133/88 Blood Pressure [Le ft Upper Arm] Blood Pressure [Ri ght Arm] Pulse Oximetry 97 98 100 Oxygen Delivery Me thod Oxygen Flow Rate Fraction of Inspir ed Oxygen 08/12/22 21:58 08/12/22 22:00 08/12/22 22:02 Temperature Pulse Rate 88 87 87 Pulse Rate [Pulse Oximeter] Respiratory Rate Blood Pressure 159/77 H 148/77 H Blood Pressure [Le ft Upper Arm] Blood Pressure [Ri ght Arm] Pulse Oximetry 99 99 99 Oxygen Delivery Me thod Oxygen Flow Rate Fraction of Inspir ed Oxygen 0.5 08/12/22 22:07 08/12/22 22:12 08/12/22 22:15 Temperature Pulse Rate 85 85 83 Pulse Rate [Pulse Oximeter] Respiratory Rate Blood Pressure 152/75 H 140/70 H Blood Pressure [Le ft Upper Arm] Blood Pressure [Ri ght Arm] Pulse Oximetry 99 98 97 Oxygen Delivery Me thod Oxygen Flow Rate Fraction of Inspir ed Oxygen 08/12/22 22:17 08/12/22 22:22 08/12/22 22:28 Temperature Pulse Rate 85 86 85 Pulse Rate [Pulse Oximeter] Respiratory Rate Blood Pressure 140/79 H 157/88 H 157/79 H Blood Pressure [Le ft Upper Arm] Blood Pressure [Ri ght Arm] Pulse Oximetry 99 99 98 Oxygen Delivery Me thod Oxygen Flow Rate Fraction of Inspir ed Oxygen 08/12/22 22:30 08/12/22 22:32 08/12/22 22:38 Temperature Pulse Rate 86 86 86 Pulse Rate [Pulse Oximeter] Respiratory Rate Blood Pressure 159/100 H 151/88 H Blood Pressure [Le ft Upper Arm] Blood Pressure [Ri ght Arm] Pulse Oximetry 99 99 99 Oxygen Delivery Me thod Oxygen Flow Rate Fraction of Inspir ed Oxygen 08/12/22 23:25 08/12/22 23:25 08/12/22 19:35 Temperature 96.6 F L Pulse Rate Pulse Rate [Pulse Oximeter] 79 96 Respiratory Rate 24 24 24 Blood Pressure Blood Pressure [Le ft Upper Arm] 176/99 H Blood Pressure [Ri ght Arm] 162/80 H Pulse Oximetry 96 96 Oxygen Delivery Me thod BiPAP BiPAP BiPAP Oxygen Flow Rate Fraction of Inspir ed Oxygen 40 40 0.7 08/12/22 19:40 08/12/22 19:50 08/12/22 20:00 Temperature Pulse Rate Pulse Rate [Pulse Oximeter] 90 87 89 Respiratory Rate 34 H 44 H 25 H Blood Pressure Blood Pressure [Le ft Upper Arm] 164/104 H 169/103 H 151/96 H Blood Pressure [Ri ght Arm] Pulse Oximetry 100 99 98 Oxygen Delivery Me thod BiPAP BiPAP BiPAP Oxygen Flow Rate Fraction of Inspir ed Oxygen 0.7 0.7 0.7 08/12/22 20:10 08/12/22 20:20 08/12/22 22:50 Temperature Pulse Rate Pulse Rate [Pulse Oximeter] 89 87 83 Respiratory Rate 27 H 24 20 Blood Pressure Blood Pressure [Le ft Upper Arm] 164/104 H 108/71 145/75 H Blood Pressure [Ri ght Arm] Pulse Oximetry 95 96 98 Oxygen Delivery Me thod BiPAP BiPAP BiPAP Oxygen Flow Rate Fraction of Inspir ed Oxygen 0.7 0.7 0.5 08/12/22 23:00 08/12/22 23:05 08/12/22 23:05 Temperature Pulse Rate 90 Pulse Rate [Pulse Oximeter] 82 82 Respiratory Rate 23 24 Blood Pressure Blood Pressure [Le ft Upper Arm] 133/73 138/80 Blood Pressure [Ri ght Arm] Pulse Oximetry 97 98 Oxygen Delivery Me thod BiPAP BiPAP Oxygen Flow Rate Fraction of Inspir ed Oxygen 0.5 0.5 08/12/22 23:30 08/12/22 23:30 08/13/22 03:30 Temperature Pulse Rate Pulse Rate [Pulse Oximeter] Respiratory Rate 24 16 Blood Pressure Blood Pressure [Le ft Upper Arm] Blood Pressure [Ri ght Arm] Pulse Oximetry 96 96 Oxygen Delivery Me thod BiPAP Oxygen Flow Rate Fraction of Inspir ed Oxygen 40 08/13/22 03:30 08/13/22 07:00 08/13/22 07:00 Temperature 96.2 F L 97.6 F Pulse Rate Pulse Rate [Pulse Oximeter] 85 85 Respiratory Rate 16 18 Blood Pressure Blood Pressure [Le ft Upper Arm] Blood Pressure [Ri ght Arm] 183/98 H 241/112 H Pulse Oximetry 93 92 91 Oxygen Delivery Me thod BiPAP Nasal Cannula Oxygen Flow Rate 2 Fraction of Inspir ed Oxygen 25 08/13/22 07:00 08/13/22 09:17 08/13/22 07:00 Temperature Pulse Rate Pulse Rate [Pulse Oximeter] 92 92 Respiratory Rate 20 19 19 Blood Pressure Blood Pressure [Le ft Upper Arm] Blood Pressure [Ri ght Arm] 175/77 H Pulse Oximetry 92 94 Oxygen Delivery Me thod Nasal Cannula CPAP Oxygen Flow Rate 2 Fraction of Inspir ed Oxygen 21 08/13/22 10:48 08/13/22 10:00 08/13/22 11:00 Temperature 97.0 F L Pulse Rate 83 Pulse Rate [Pulse Oximeter] 73 Respiratory Rate 24 Blood Pressure Blood Pressure [Le ft Upper Arm] Blood Pressure [Ri ght Arm] 186/78 H Pulse Oximetry 91 Oxygen Delivery Me thod CPAP Oxygen Flow Rate Fraction of Inspir ed Oxygen 0.21 0.21 08/13/22 11:00 Temperature Pulse Rate Pulse Rate [Pulse Oximeter] 73 Respiratory Rate 24 Blood Pressure Blood Pressure [Le ft Upper Arm] Blood Pressure [Ri ght Arm] Pulse Oximetry Oxygen Delivery Me thod Oxygen Flow Rate Fraction of Inspir ed Oxygen Labs Labs: Laboratory Results - last 24 hr 08/12/22 08/12/22 08/12/22 19:30 19:30 19:30 WBC 14.82 H RBC 5.22 H Hgb 15.8 Hct 47.6 MCV 91 MCH 30 MCHC 33 RDW Coeff of Zack 13.1 Plt Count 221 Neut % (Auto) 71.5 Lymph % (Auto) 18.6 L [place] % (Auto) 6.5 Eos % (Auto) 2.8 Baso % (Auto) 0.3 Neut # (Auto) 10.60 H Lymph # (Auto) 2.80 [place] # (Auto) 1.00 H Eos # (Auto) 0.40 Baso # (Auto) 0.00 D-Dimer Quant (PE/DVT) 0.81 H VBG pH VBG pCO2 VBG pO2 VBG HCO3 Sodium Potassium Chloride Carbon Dioxide BUN Creatinine Estimated Creat Clear Estimated GFR Glucose Lactate Calcium Magnesium Total Bilirubin Direct Bilirubin AST ALT Alkaline Phosphatase Troponin I C-Reactive Protein NT-Pro-B Natriuret Pep Total Protein Albumin Procalcitonin Urine Color Urine Appearance Urine pH Ur Specific [place] Urine Protein Urine Glucose (UA) Urine Ketones Urine Blood Urine Nitrite Urine Bilirubin Urine Urobilinogen Ur Leukocyte Esterase Urine RBC Urine WBC Ur Squamous Epith Cells Urine Bacteria SARS-CoV-2 (PCR) Negative SARS-CoV-2 Influenza Type A (PCR) Negative PCR FLU A Influenza Type B (PCR) Negative PCR FLU B RSV (PCR) Negative PCR RSV POC Troponin I 08/12/22 08/12/22 08/12/22 19:30 19:30 19:30 WBC RBC Hgb Hct MCV MCH MCHC RDW Coeff of Zack Plt Count Neut % (Auto) Lymph % (Auto) [place] % (Auto) Eos % (Auto) Baso % (Auto) Neut # (Auto) Lymph # (Auto) [place] # (Auto) Eos # (Auto) Baso # (Auto) D-Dimer Quant (PE/DVT) VBG pH 7.244 L* VBG pCO2 54 H VBG pO2 57.5 H VBG HCO3 23 Sodium Potassium Chloride Carbon Dioxide BUN Creatinine Estimated Creat Clear Estimated GFR Glucose Lactate Calcium Magnesium Total Bilirubin Direct Bilirubin AST ALT Alkaline Phosphatase Troponin I 0.02 C-Reactive Protein NT-Pro-B Natriuret Pep Total Protein Albumin Procalcitonin Urine Color Urine Appearance Urine pH Ur Specific [place] Urine Protein Urine Glucose (UA) Urine Ketones Urine Blood Urine Nitrite Urine Bilirubin Urine Urobilinogen Ur Leukocyte Esterase Urine RBC Urine WBC Ur Squamous Epith Cells Urine Bacteria SARS-CoV-2 (PCR) Influenza Type A (PCR) Influenza Type B (PCR) RSV (PCR) POC Troponin I 0.01 08/12/22 08/12/22 08/12/22 19:43 21:22 22:30 WBC RBC Hgb Hct MCV MCH MCHC RDW Coeff of Zack Plt Count Neut % (Auto) Lymph % (Auto) [place] % (Auto) Eos % (Auto) Baso % (Auto) Neut # (Auto) Lymph # (Auto) [place] # (Auto) Eos # (Auto) Baso # (Auto) D-Dimer Quant (PE/DVT) VBG pH 7.389 VBG pCO2 44 VBG pO2 63.0 H VBG HCO3 27 Sodium 131 L Potassium 3.7 Chloride 96 Carbon Dioxide 21 BUN 15 Creatinine 0.6 Estimated Creat Clear 35.45 Estimated GFR 94 Glucose 233 H Lactate Calcium 9.0 Magnesium 2.0 Total Bilirubin 1.1 Direct Bilirubin 0.4 AST 40 H ALT 29 Alkaline Phosphatase 80 Troponin I C-Reactive Protein 1.5 H NT-Pro-B Natriuret Pep 963 Total Protein 8.1 Albumin 4.8 Procalcitonin 0.04 Urine Color Yellow Urine Appearance Clear Urine pH 6.0 Ur Specific [place] 1.010 Urine Protein Negative Urine Glucose (UA) Negative Urine Ketones Negative Urine Blood Trace-intact A Urine Nitrite Negative Urine Bilirubin Negative Urine Urobilinogen 0.2 Ur Leukocyte Esterase Negative Urine RBC 0-2 Urine WBC 0-2 Ur Squamous Epith Cells None Urine Bacteria None SARS-CoV-2 (PCR) Influenza Type A (PCR) Influenza Type B (PCR) RSV (PCR) POC Troponin I 08/13/22 08/13/22 08/13/22 06:20 06:20 06:20 WBC 6.87 RBC 4.78 Hgb 14.3 Hct 42.7 MCV 89 MCH 30 MCHC 34 RDW Coeff of Zack 13.1 Plt Count 153 Neut % (Auto) 90.9 H Lymph % (Auto) 7.9 L [place] % (Auto) 0.9 Eos % (Auto) 0.1 Baso % (Auto) 0.1 Neut # (Auto) 6.20 Lymph # (Auto) 0.50 L [place] # (Auto) 0.10 Eos # (Auto) 0.01 Baso # (Auto) 0.01 D-Dimer Quant (PE/DVT) VBG pH 7.451 H VBG pCO2 39 L VBG pO2 45.2 VBG HCO3 27 Sodium 133 L Potassium 4.4 Chloride 102 Carbon Dioxide 25 BUN 13 Creatinine 0.4 L Estimated Creat Clear 37.24 Estimated GFR 104 Glucose 179 H Lactate 0.8 Calcium 8.8 Magnesium Total Bilirubin 0.9 Direct Bilirubin AST 45 H ALT 28 Alkaline Phosphatase 53 Troponin I 0.27 H* C-Reactive Protein NT-Pro-B Natriuret Pep Total Protein 7.3 Albumin 4.3 Procalcitonin 0.09 Urine Color Urine Appearance Urine pH Ur Specific [place] Urine Protein Urine Glucose (UA) Urine Ketones Urine Blood Urine Nitrite Urine Bilirubin Urine Urobilinogen Ur Leukocyte Esterase Urine RBC Urine WBC Ur Squamous Epith Cells Urine Bacteria SARS-CoV-2 (PCR) Influenza Type A (PCR) Influenza Type B (PCR) RSV (PCR) POC Troponin I
[2022-08-13 15:45] LABS: Troponin I* 0.22 ng/mL (0.01-0.04)
[2022-08-13] MEDS: FUROSEMIDE 10 MG/ML inj 20 MG IVP (17:07)
--- NOTE | 2022-08-13 18:06 | PC.NURSE ---
End of shift-- Very pleasant and cooperative, alert and oriented patient. Pt was hypertensive this morning with B/P 241/112. Md was notified and pt was given a one time dose of amlodipine in addition to her home B/P meds per MD order. B/P has improved this evening though she remains mildly hypertensive with B/Ps in the 150s systolically. Other VS WNL and pt remains afebrile. SPO2 maintained >90% on 2L per n.c. and/or CPAP at 21% FiO2. Early this morning pt developed stridor and a very frequent productive cough with large amounts of clear sputum. Pt was given a neb, MD was notified and came to bedside. Additionally, pt was given IV lasix and pt was placed on CPAP via V60 with settings per RT. Pt's condition greatly improved following. LS coarse and diminished with expiratory rhonchi throughout. Occasional crackles noted in bases. Telemetry shows NSR. She denied nausea and ate 100% of a regular diet for 3 meals today. BS+ x4, but pt has had no BM today. She was up to chair x2 today with assist of 1-2 and tolerated it fair. Green catheter is patent, but has been leaking. Catheter was replaced with an 18, balloon was inflated with 20mls additional saline and catheter continues to have a small leak. Pt voided 1100ml of pale yellow urine via catheter with some urine escaping around it today. Pt tolerated the CPAP machine while sleeping, but struggles to wear for more than short intervals while awake. Report to EVELYN Andrew.
[2022-08-13] MEDS: ENOXAPARIN 40 MG/0.4 ML INJ SUBCUT (21:20)
[2022-08-14] VITALS (8 sets, daily range): BP systolic 135–184; BP diastolic 66–98; PULSE 84–94; RESP 16–21; TEMP 36–36.4; O2SAT 90–94
--- NOTE | 2022-08-14 04:16 | PC.NURSE ---
Shift note -: Pt alert, verbalizes needs, extremely talkative, no c/o pain. Tolerating RA CPAP, off from [id number] for HS cares w/ sats 94% on 2L even w/ activity, lungs w/ exp rhonchi. Green patent w/ tea-colored urine, leakage around catheter w/ cough. Tele reads SR w/o ectopy.
[2022-08-14 05:37] LABS: HCO3 VBG 30 mmol/L (21-28); PCO2 VBG 44 mmHG (40-50); PO2 VBG 56.8 mmHG (25-47)
[2022-08-14] MEDS: IPRAT-ALBUT 0.5-2.5 MG/3 ML NEB 1 NEB IH ×5 (05:39→21:13)
[2022-08-14] MEDS: PIPERACILLIN/TAZOBACTAM 3.375 GM in 0.9 % SODIUM CHLORIDE Mini-bag 100 ML IVPB ×3 (05:39→18:32)
[2022-08-14 05:43] LABS: Hematocrit 39.2 % (33.0-51.0); Hemoglobin* 13.2 gm/dL (12.0-16.0); Mean Corpuscular HGB Conc 34 gm/dL (32-36); Mean Corpuscular Hemoglobin 30 pg (26-34); Mean Corpuscular Volume 90 fL (80-100); Platelet Count* 161 K/uL (140-440); Red Blood Count 4.37 m/uL (4.00-5.20); White Blood Count* 7.27 K/uL (4.50-11.00)
[2022-08-14 05:44] LABS: Slide Review Reflex No
[2022-08-14 06:10] LABS: Albumin* 3.9 g/dL (3.3-5.0); Chloride* 99 mmol/L (96-114)
[2022-08-14 06:11] LABS: Sodium* 132 mmol/L (135-149)
[2022-08-14 06:13] LABS: Blood Urea Nitrogen* 28 mg/dL (7-30); Carbon Dioxide* 28 mmol/L (20-32); Cholesterol* 112 mg/dL (90-199); Creatinine* 0.8 mg/dL (0.5-1.5); Est. Creatinine Clearance* 37.24; Estimated Glomerular Filt Rate 77 ml/min
[2022-08-14 06:14] LABS: Calcium* 8.4 mg/dL (8.4-10.6); Glucose* 115 mg/dL (60-115); HDL Cholesterol* 60 mg/dL (>=50); LDL Cholesterol Calculated 40 mg/dL (<100); Magnesium* 2.5 mg/dL (1.5-2.6); Triglycerides* 62 mg/dL (40-149)
[2022-08-14 06:27] LABS: Troponin I* 0.12 ng/mL (0.01-0.04)
[2022-08-14] MEDS: predniSONE 20 MG TABLET 60 MG PO (07:55)
[2022-08-14] MEDS: OMEPRAZOLE 20 MG CAPSULE DR 40 MG PO (07:55)
[2022-08-14] MEDS: CLOPIDOGREL 75 MG TABLET PO (09:13)
[2022-08-14] MEDS: FUROSEMIDE 10 MG/ML inj 40 MG IVP (09:13)
[2022-08-14] MEDS: atenoloL 50 MG TABLET PO (09:13)
[2022-08-14] MEDS: lisinopriL 20 MG TABLET PO (09:13)
[2022-08-14] MEDS: ATORVASTATIN 10 MG TABLET PO (09:13)
[2022-08-14] MEDS: SODIUM CHLORIDE 0.9 % (FLUSH) 10 ML SYRINGE 5 ML IVF ×2 (09:14→21:13)
--- NOTE | 2022-08-14 15:01 | PM.IMPN1 ---
Progress Note: A&P Assessment and plan (1) Acute respiratory failure with hypoxia: Problem details: - multifactorial (diastolic dysfunction noted on 2014 TTE, recent URI, possible COPD, known SELINA, possible tachycardia induced cardiomyopathy) - requiring BiPAP on presentation, later requiring only oxygen support via nasal cannula at low flow - discontinue BiPAP, utilize low-flow oxygen as needed, cover with steroids giving wheezing, Zosyn tonight given leukocytosis and CT findings - repeat TTE demonstrates diastolic heart failure only. - respiratory therapy consult Status: Acute Assessment and Plan: Generally improved. More IV furosemide diuresis today. Consider switching to oral torsemide tomorrow. (2) Pulmonary edema: Problem details: - given IV furosemide x1 in the ED 2 days ago, 2 IV doses yesterday, and will give another IV dose today Status: Acute Assessment and Plan: Much improved (3) Wheeze: Problem details: - possible COPD versus heart failure associated wheezing; treat with steroids Status: Acute Assessment and Plan: Resolved with current treatment efforts (4) SELINA on CPAP: Status: Acute Assessment and Plan: Resume use of her CPAP (5) Non-ST elevation myocardial infarction (NSTEMI): Status: Acute Assessment and Plan: May need to consider additional evaluation outpatient setting (6) Physical debility: Status: Acute Assessment and Plan: Continue to work with physical and occupational therapy (7) Generalized weakness: Status: Acute Time Spent With Patient Total time spent: 40 minutes Subjective Time Seen by Provider: 08:00 Date Seen: 08/14/22 Interval history: Hospital day 3. Breathing is improved. No longer has a dry, hacky cough. Cough intermittently productive of purulent sputum. No hemoptysis. No longer has audible wheezing or stridor. Denies having dyspnea at rest. Denies chest heaviness, pressure, tightness, or pain. Denies syncope or near-syncope. Denies nausea vomiting. She is actually hungry. Tells me she had a recent URI as well as community-acquired pneumonia for which she received antibiotic treatment. Denies diarrhea, dysuria, urgency, frequency, hematuria. No other blood loss. No trauma or injury. No recent travel. Was using CPAP intermittently yesterday. Doing better on low-flow oxygen via nasal cannula today than was yesterday. Weight today 92.8 kg. Weight yesterday 92.5 kg. Weight on admission 92.7 kg. Exam Narrative: Exam Narrative: Appears comfortable. No acute distress. Alert, oriented to self, place, time, situation. Friendly, talkative, articulate. Mood and affect are congruent. No longer has wheezing or stridor. No rales or rhonchi. Heart tones with regular rhythm. Normal S1-S2. Abdomen obese with active bowel sounds, soft, nontender. Extremities without edema. Standby assist with transfers. No focal motor neurologic deficits. Const: Vital Signs, click to edit/add: Vital Signs - 24 hr 08/13/22 16:21 08/13/22 21:20 08/13/22 21:20 Temperature 97.5 F L Pulse Rate 73 Pulse Rate [Pulse Oximeter] 75 Respiratory Rate 18 18 Blood Pressure [Ri ght Arm] 105/55 L Pulse Oximetry 92 Oxygen Delivery Me thod CPAP Oxygen Flow Rate Fraction of Inspir ed Oxygen 08/13/22 23:00 08/13/22 23:00 08/13/22 23:00 Temperature 97.3 F L Pulse Rate Pulse Rate [Pulse Oximeter] 80 Respiratory Rate 20 20 Blood Pressure [Ri ght Arm] 160/74 H Pulse Oximetry 92 92 92 Oxygen Delivery Me thod CPAP CPAP Oxygen Flow Rate Fraction of Inspir ed Oxygen 21 08/13/22 23:00 08/13/22 23:00 08/14/22 03:30 Temperature Pulse Rate 77 Pulse Rate [Pulse Oximeter] Respiratory Rate 20 16 Blood Pressure [Ri ght Arm] Pulse Oximetry Oxygen Delivery Me thod Oxygen Flow Rate Fraction of Inspir ed Oxygen 08/14/22 03:30 08/14/22 07:00 08/14/22 07:00 Temperature 97.1 F L 97.2 F L Pulse Rate Pulse Rate [Pulse Oximeter] 84 93 Respiratory Rate 16 18 Blood Pressure [Ri ght Arm] 135/70 154/74 H Pulse Oximetry 93 90 90 Oxygen Delivery Me thod CPAP Nasal Cannula Oxygen Flow Rate 1 Fraction of Inspir ed Oxygen 08/14/22 07:00 08/14/22 07:00 08/14/22 07:00 Temperature Pulse Rate 91 Pulse Rate [Pulse Oximeter] 93 Respiratory Rate 18 18 Blood Pressure [Ri ght Arm] Pulse Oximetry 93 Oxygen Delivery Me thod Nasal Cannula Oxygen Flow Rate 1 Fraction of Inspir ed Oxygen 08/14/22 11:00 08/14/22 13:33 08/14/22 11:00 Temperature 96.9 F L Pulse Rate Pulse Rate [Pulse Oximeter] 91 91 Respiratory Rate 21 21 Blood Pressure [Ri ght Arm] 141/66 H Pulse Oximetry 92 Oxygen Delivery Me thod CPAP Oxygen Flow Rate Fraction of Inspir ed Oxygen 21 0.21 Documenting provider has reviewed patient's vital signs: yes Labs Labs: Laboratory Results - last 24 hr 08/13/22 08/14/22 08/14/22 15:03 05:06 05:06 WBC 7.27 RBC 4.37 Hgb 13.2 Hct 39.2 MCV 90 MCH 30 MCHC 34 Plt Count 161 VBG pH VBG pCO2 VBG pO2 VBG HCO3 Sodium 132 L Potassium 4.0 Chloride 99 Carbon Dioxide 28 BUN 28 Creatinine 0.8 Estimated Creat Clear 37.24 Estimated GFR 77 Glucose 115 Calcium 8.4 Phosphorus 4.0 Magnesium 2.5 Troponin I 0.22 H* 0.12 H* Albumin 3.9 Triglycerides 62 Cholesterol 112 LDL Cholesterol, Calc 40 HDL Cholesterol 60 08/14/22 05:06 WBC RBC Hgb Hct MCV MCH MCHC Plt Count VBG pH 7.450 H VBG pCO2 44 VBG pO2 56.8 H VBG HCO3 30 H Sodium Potassium Chloride Carbon Dioxide BUN Creatinine Estimated Creat Clear Estimated GFR Glucose Calcium Phosphorus Magnesium Troponin I Albumin Triglycerides Cholesterol LDL Cholesterol, Calc HDL Cholesterol
[2022-08-14] MEDS: SENNOSIDES/DOCUSATE TABLET 1 TAB PO (16:51)
[2022-08-14] MEDS: atenoloL 25 MG TABLET PO (17:13)
--- NOTE | 2022-08-14 19:33 | PC.NURSE ---
End of shift-- Very pleasant and cooperative, alert and oriented patient. VSS, though she remains mildly hypertensive and pt is afebrile. SPO2 maintained >90% on CPAP at 12 with 21% FiO2 while at rest and 2L per n.c. LS coarse and diminished with an occasional expiratory wheeze noted and rhonchi that clears with cough. Pt continues to have a frequent, wet cough with large amounts of clear sputum that is worse when off of CPAP. Telemetry shows NSR. She denied nausea, tolerated a regular diet without difficulty and had a soft, continent BM this evening. Green is patent and draining large amounts of clear, yellow urine. However, it continues to leak with pt's coughing. She was up to the chair and commode with SBA and tolerated it well. She does become mildly SOB with exertion. and daughter were at bedside today and appear loving and supportive. Report to EVELYN Yates.
[2022-08-14] MEDS: ENOXAPARIN 40 MG/0.4 ML INJ SUBCUT (21:13)
[2022-08-15] VITALS (9 sets, daily range): BP systolic 127–169; BP diastolic 60–87; PULSE 70–87; RESP 16–22; TEMP 35.9–36.5; O2SAT 88–93
[2022-08-15] MEDS: 0.9 % SODIUM CHLORIDE 250 ml IV (00:04)
[2022-08-15] MEDS: PIPERACILLIN/TAZOBACTAM 3.375 GM in 0.9 % SODIUM CHLORIDE Mini-bag 100 ML IVPB ×3 (00:04→11:33)
--- NOTE | 2022-08-15 03:30 | PC.NURSE ---
PATIENT PLEASANT AND COOPERATIVE, UP SBA TOLERATING FAIRLY SOME SOB NOTED WITH ACTIVITY, CPAP ON AT REST AND NC AT 1L WHILE AWAKE THIS SHIFT, CHANDLER PATENT BUT PATIENT DOES HAVE SOME URINARY STRESS INCONTINENT WITH COUGHING, DECLINING PAIN, TELE SHOWING NSR, INTERMITTENT COUGH WITH PHLEGM, COUGH APPEARS TO GET WORSE WITH LONGER PERIODS OF TIME OFF CPAP.
[2022-08-15] MEDS: IPRAT-ALBUT 0.5-2.5 MG/3 ML NEB 1 NEB IH ×5 (05:27→21:01)
[2022-08-15] MEDS: SODIUM CHLORIDE 0.9 % (FLUSH) 10 ML SYRINGE 5 ML IVF ×3 (05:28→21:02)
[2022-08-15 07:18] LABS: HCO3 VBG 29 mmol/L (21-28); PCO2 VBG 41 mmHG (40-50); PO2 VBG 48.3 mmHG (25-47); pH VBG 7.459 (7.32-7.43)
[2022-08-15 07:45] LABS: Sodium* 132 mmol/L (135-149)
[2022-08-15 08:01] LABS: NT Pro B Type NatriureticPept* 723 pg/mL
[2022-08-15] MEDS: CLOPIDOGREL 75 MG TABLET PO (08:42)
[2022-08-15] MEDS: predniSONE 20 MG TABLET 60 MG PO (08:42)
[2022-08-15] MEDS: ATORVASTATIN 10 MG TABLET PO (08:42)
[2022-08-15] MEDS: lisinopriL 20 MG TABLET PO (08:43)
[2022-08-15] MEDS: OMEPRAZOLE 20 MG CAPSULE DR 40 MG PO (08:43)
[2022-08-15] MEDS: atenoloL 50 MG TABLET PO (08:44)
[2022-08-15] MEDS: TORSEMIDE 20 MG TABLET 40 MG PO (08:45)
--- NOTE | 2022-08-15 14:18 | PM.IMPN1 ---
Progress Note: A&P Assessment and plan (1) Acute respiratory failure with hypoxia: Problem details: - multifactorial (diastolic dysfunction noted on 2014 TTE, recent URI, possible COPD, known SELINA, possible tachycardia induced cardiomyopathy) - requiring BiPAP on presentation, later requiring only oxygen support via nasal cannula at low flow - discontinue BiPAP, utilize low-flow oxygen as needed, cover with steroids given wheezing, Zosyn tonight given leukocytosis and CT findings - repeat TTE demonstrates diastolic heart failure only. - respiratory therapy consult, including with use of Aerobika device Status: Acute (2) Pulmonary edema: Problem details: - given IV furosemide 20 mg x1 in the ED 08/12, 2 IV furosemide 20 mg doses 08/13, furosemide 40 mg IV x1 dose 08/14, torsemide 40 mg po x1 dose 08/15 Status: Acute Assessment and Plan: Much improved. Transition from IV diuresis with furosemide to torsemide PO today. (3) Wheeze: Problem details: - possible COPD versus heart failure associated wheezing; treat with steroids and diuresis Status: Acute Assessment and Plan: Much improved. Will transition away from the steroids. (4) SELINA on CPAP: Problem details: Normally on CPAP at home. Status: Acute Assessment and Plan: Will transition to her home CPAP. (5) Non-ST elevation myocardial infarction (NSTEMI): Status: Acute Assessment and Plan: Improved with stabilization of respiratory status. (6) Physical debility: Problem details: Chronic Status: Acute Assessment and Plan: Work with PT and OT. (7) Generalized weakness: Problem details: Acute on chronic. Status: Acute Assessment and Plan: Work with PT and OT. Plan 1. Reviewed with patient. 2. Answered her questions are satisfaction. 3. Gradually transition to a home going medication regimen as she tolerates. Time Spent With Patient Total time spent: 35 minutes Subjective Time Seen by Provider: 08:00 Date Seen: 08/15/22 Interval history: Hospital day 4. Breathing is improved. Still has a cough intermittently productive of purulent sputum. No hemoptysis. No longer has audible wheezing or stridor. Denies having dyspnea at rest. Denies chest heaviness, pressure, tightness, or pain. Denies syncope or near-syncope. Denies nausea vomiting. She is actually hungry. Tells me she had a recent URI as well as community-acquired pneumonia for which she received antibiotic treatment. Denies diarrhea, dysuria, urgency, frequency, hematuria. No other blood loss. No trauma or injury. No recent travel. Still using CPAP intermittently yesterday. Doing better on low-flow oxygen via nasal cannula today than was yesterday. Actually able to walk a good 20 ft today with standby assist and use of walker. Desaturated into mid 80s when walking on 0.5 liter/minute via nasal cannula continuously, and saturation improved almost immediately into the low 90s while walking but with oxygen at 2 liters/minute via nasal cannula continuously. Weight 08/15 93.6 kg. Weight 08/14 92.8 kg. Weight 08/13 92.5 kg. Weight on admission was 92.7 kg. Exam Narrative: Exam Narrative: Appears comfortable and in no acute distress. Sitting comfortably. Feed self independently. Alert and oriented to self, place, time, situation. Friendly, cooperative, articulate. Mood and affect are congruent. Lungs without wheezing or rhonchi. End inspiratory rales bibasilarly. Heart tones with regular rhythm, normal S1-S2. Abdomen obese with active bowel sounds, soft, nontender. Extremities with trace edema pretibially bilaterally. Skin is warm, dry, intact. wt 93.6 kg 08/15, 92.8 kg 08/14, 92.5 kg 08/13, 92.7 kg 08/12 Const: Vital Signs, click to edit/add: Vital Signs - 24 hr 08/14/22 15:00 08/14/22 15:00 08/14/22 15:00 Temperature 96.9 F L Pulse Rate Pulse Rate [Apical ] Pulse Rate [Pulse Oximeter] 91 Respiratory Rate 21 21 Blood Pressure [Ri ght Arm] 141/66 H Pulse Oximetry 90 90 90 Oxygen Delivery Me thod CPAP CPAP Oxygen Flow Rate 1 1 Fraction of Inspir ed Oxygen 0.21 0.21 08/14/22 15:30 08/14/22 15:00 08/14/22 19:00 Temperature Pulse Rate 87 Pulse Rate [Apical ] Pulse Rate [Pulse Oximeter] 91 Respiratory Rate 21 18 Blood Pressure [Ri ght Arm] Pulse Oximetry Oxygen Delivery Me thod Oxygen Flow Rate Fraction of Inspir ed Oxygen 08/14/22 19:00 08/14/22 22:32 08/14/22 22:59 Temperature 96.8 F L Pulse Rate 89 Pulse Rate [Apical ] Pulse Rate [Pulse Oximeter] 87 Respiratory Rate 18 Blood Pressure [Ri ght Arm] 183/80 H Pulse Oximetry 93 94 Oxygen Delivery Me thod CPAP Oxygen Flow Rate Fraction of Inspir ed Oxygen 0.21 08/14/22 22:59 08/14/22 22:59 08/14/22 22:59 Temperature 97.6 F Pulse Rate Pulse Rate [Apical ] Pulse Rate [Pulse Oximeter] 94 Respiratory Rate 18 20 20 Blood Pressure [Ri ght Arm] 184/98 H Pulse Oximetry 93 Oxygen Delivery Me thod CPAP CPAP Oxygen Flow Rate Fraction of Inspir ed Oxygen 0.21 0.21 08/15/22 03:00 08/15/22 03:00 08/15/22 07:36 Temperature 97.4 F L Pulse Rate Pulse Rate [Apical ] Pulse Rate [Pulse Oximeter] 87 Respiratory Rate 18 18 Blood Pressure [Ri ght Arm] 145/61 H Pulse Oximetry 93 92 Oxygen Delivery Me thod CPAP Oxygen Flow Rate Fraction of Inspir ed Oxygen 08/15/22 07:36 08/15/22 07:36 08/15/22 07:36 Temperature 96.6 F L Pulse Rate Pulse Rate [Apical ] 76 Pulse Rate [Pulse Oximeter] Respiratory Rate 18 18 Blood Pressure [Ri ght Arm] 155/87 H Pulse Oximetry 92 92 Oxygen Delivery Me thod CPAP CPAP Oxygen Flow Rate Fraction of Inspir ed Oxygen 08/15/22 07:06 08/15/22 09:34 08/15/22 12:07 Temperature 97.7 F Pulse Rate 72 Pulse Rate [Apical ] 70 Pulse Rate [Pulse Oximeter] Respiratory Rate 20 Blood Pressure [Ri ght Arm] 127/67 Pulse Oximetry 91 Oxygen Delivery Me thod Nasal Cannula Oxygen Flow Rate 1 Fraction of Inspir ed Oxygen 0.21 08/15/22 12:07 Temperature Pulse Rate Pulse Rate [Apical ] Pulse Rate [Pulse Oximeter] Respiratory Rate 20 Blood Pressure [Ri ght Arm] Pulse Oximetry Oxygen Delivery Me thod Oxygen Flow Rate Fraction of Inspir ed Oxygen Documenting provider has reviewed patient's vital signs: yes Labs Labs: Laboratory Results - last 24 hr 08/15/22 08/15/22 07:12 07:12 VBG pH 7.459 H VBG pCO2 41 VBG pO2 48.3 H VBG HCO3 29 H Sodium 132 L NT-Pro-B Natriuret Pep 723
[2022-08-15] MEDS: LACTOBACILLUS ACIDOPHILUS 1 TABLET 2 TAB PO (17:47)
[2022-08-15] MEDS: atenoloL 25 MG TABLET PO (17:47)
[2022-08-15] MEDS: AMOXICILLIN/CLAVULANATE 875 mg/125 mg TABLET PO (17:47)
--- NOTE | 2022-08-15 18:48 | PC.NURSE ---
Patient on 1L/NC while awake and CPAP during periods of rest/sleep. O2 sats maintained at 91-92%. Telemetry NSR.
[2022-08-15] MEDS: ENOXAPARIN 40 MG/0.4 ML INJ SUBCUT (21:02)
[2022-08-16] VITALS (9 sets, daily range): BP systolic 107–173; BP diastolic 49–83; PULSE 72–83; RESP 18–20; TEMP 36.3–36.6; O2SAT 91–93
[2022-08-16] MEDS: IPRAT-ALBUT 0.5-2.5 MG/3 ML NEB 1 NEB IH ×4 (05:43→20:29)
[2022-08-16 07:02] LABS: HCO3 VBG 30 mmol/L (21-28); Lactate* 0.6 mmol/L (0.5-1.9); PCO2 VBG 45 mmHG (40-50); PO2 VBG 78.3 mmHG (25-47); pH VBG 7.436 (7.32-7.43)
[2022-08-16 07:05] LABS: Hematocrit 40.8 % (33.0-51.0); Hemoglobin* 13.6 gm/dL (12.0-16.0); Mean Corpuscular HGB Conc 33 gm/dL (32-36); Mean Corpuscular Hemoglobin 30 pg (26-34); Mean Corpuscular Volume 91 fL (80-100); Platelet Count* 182 K/uL (140-440); Red Blood Count 4.47 m/uL (4.00-5.20); White Blood Count* 6.21 K/uL (4.50-11.00)
[2022-08-16 07:19] LABS: Slide Review Reflex No
[2022-08-16 07:27] LABS: Albumin* 3.8 g/dL (3.3-5.0); Chloride* 102 mmol/L (96-114); Sodium* 135 mmol/L (135-149)
[2022-08-16 07:30] LABS: Blood Urea Nitrogen* 29 mg/dL (7-30); Carbon Dioxide* 29 mmol/L (20-32); Creatinine* 0.6 mg/dL (0.5-1.5); Est. Creatinine Clearance* 37.24; Estimated Glomerular Filt Rate 94 ml/min
[2022-08-16 07:31] LABS: Calcium* 8.5 mg/dL (8.4-10.6); Glucose* 94 mg/dL (60-115); Phosphorus* 3.9 mg/dL (2.5-4.5)
--- NOTE | 2022-08-16 07:33 | PC.NURSE ---
Addendum entered by Erickson Lowe RN 08/16/22 08:23: Noted oxygen regulator leaky/touchy as when I reassessed her oxygen was at 0.5, replaced regulator, had her on 1.5 lpm via nc oximetry 93% thus decreased to 1lpm will reassess. Up in chair, tolerated well. Original Note: : Pt's oximetry at hs with cpap on room air was 85%, had to increase to fio2 32% to keep oxygen above 90% until this morning she was weaned down to 25%, then changed over to nasal cannula at 1lpm oximetry now 85-90%, will increase to 1.5 lpm and reassess. Denies sob, coughing up yellow phlegm, weight decreased, occasional expiratory wheezing noted, scheduled nebs given. I&O adeq with angelo in place.
[2022-08-16] MEDS: AMOXICILLIN/CLAVULANATE 875 mg/125 mg TABLET PO ×2 (07:41→17:41)
[2022-08-16] MEDS: LACTOBACILLUS ACIDOPHILUS 1 TABLET 2 TAB PO ×3 (07:41→17:41)
[2022-08-16] MEDS: TORSEMIDE 20 MG TABLET 40 MG PO (07:41)
[2022-08-16] MEDS: predniSONE 20 MG TABLET PO (07:42)
[2022-08-16] MEDS: OMEPRAZOLE 20 MG CAPSULE DR 40 MG PO (07:47)
[2022-08-16] MEDS: lisinopriL 20 MG TABLET PO (09:12)
[2022-08-16] MEDS: atenoloL 50 MG TABLET PO (09:12)
[2022-08-16] MEDS: CLOPIDOGREL 75 MG TABLET PO (09:12)
[2022-08-16] MEDS: ATORVASTATIN 10 MG TABLET PO (09:13)
[2022-08-16] MEDS: SODIUM CHLORIDE 0.9 % (FLUSH) 10 ML SYRINGE 5 ML IVF ×2 (09:19→20:30)
--- NOTE | 2022-08-16 13:11 | P.IMPN_ITS ---
Progress Note: A&P Assessment and plan (1) Acute respiratory failure with hypoxia: Problem details: - multifactorial (diastolic dysfunction noted on 2014 TTE, recent URI, possible COPD, known SELINA, possible tachycardia induced cardiomyopathy) - requiring BiPAP on presentation, later requiring only oxygen support via nasal cannula at low flow - discontinue BiPAP, utilize low-flow oxygen as needed, cover with steroids given wheezing, Zosyn IV antibiotics switched to Augmentin oral antibiotic for possible bronchitis in association with chronic obstructive pulmonary disease - repeat TTE demonstrates diastolic heart failure only. - respiratory therapy consult, including with use of Aerobika device Status: Acute (2) Pulmonary edema: Problem details: - given IV furosemide 20 mg x1 in the ED 08/12, 2 IV furosemide 20 mg doses 08/13, furosemide 40 mg IV x1 dose 08/14, torsemide 40 mg po once daily starting 08/15 Status: Acute (3) Wheeze: Problem details: - possible COPD versus heart failure associated wheezing; treat with steroids and diuresis Status: Acute Assessment and Plan: Decreasing dose of steroids. (4) SELINA on CPAP: Problem details: Normally on CPAP at home. Status: Acute Assessment and Plan: Continue CPAP. (5) Non-ST elevation myocardial infarction (NSTEMI): Status: Acute Assessment and Plan: Resolved with stabilization of her respiratory status. (6) Physical debility: Problem details: Chronic Status: Acute Assessment and Plan: Encourage increased activities as tolerated. (7) Generalized weakness: Problem details: Acute on chronic. Status: Acute Assessment and Plan: Likely multifactorial including from baseline status plus status with current illnesses. Plan 1. Reviewed my impression with the patient and her . Answered their questions. 2. Check home oxygen needs either today or tomorrow. Patient may well need oxygen supplementation for period of time after discharge from the hospital. 3. Reviewed with patient and how her condition is improving sufficiently such that she may be in a position to safely be discharged from the hospital in the next 1-2 days. 4. Patient and satisfied with current plans and recommendations. Time Spent With Patient Total time spent: 45 minutes Subjective Time Seen by Provider: 10:00 Date Seen: 08/16/22 Interval history: Hospital day 5. She indicates a sense of anxiety about going home. She wonders how much she can and can not safely do at home. Breathing is improved. Still has a cough intermittently productive of purulent sputum. No hemoptysis. No longer has audible wheezing or stridor. Denies having dyspnea at rest. Acknowledges dyspnea with exertion. Denies chest heaviness, pressure, tightness, or pain. Denies syncope or near-syncope. D enies nausea vomiting. She is actually hungry. Recently treated for a URI as well as community-acquired pneumonia for which she received antibiotic treatment for the latter. Denies diarrhea, dysuria, urgency, frequency, hematuria. No other blood loss. No trauma or injury. No recent travel. Still using CPAP intermittently yesterday. Doing better on low-flow oxygen via nasal cannula today than was yesterday. Actually able to walk a good 20 ft today with standby assist and use of walker. Desaturates with exertion without increased oxygen supplementation to 2 LPM while exerting herself. Weight 08/16 92.2 kg. Weight 08/15 93.6 kg. Weight 08/14 92.8 kg. Weight 08/13 92.5 kg. Weight on admission was 92.7 kg. Exam Narrative: Exam Narrative: Vital signs better controlled now. Appears comfortable sitting in chair at bedside. No acute distress. Alert and oriented to self, place, time, situation. Talkative, articulate. Mood and affect are congruent. Anxious about leaving the hospital to soon. Indicates to me that she is willing to stay here for the next week if need be. Lungs with fine end inspiratory rales. No wheezing or rhonchi. Heart tones with regular rhythm, normal S1-S2. Abdomen is obese with active bowel sounds, soft, nontender. Transfers from supine to sitting and sitting to standing independently with only standby assist. Ambulates with walker with only standby assist. Trace edema pretibially bilaterally. No focal motor neurologic deficits. Const: Vital Signs, click to edit/add: Vital Signs - 24 hr 08/15/22 16:40 08/15/22 16:40 08/15/22 16:40 Temperature 96.9 F L Pulse Rate Pulse Rate [Apical ] 82 Pulse Rate [Pulse Oximeter] Respiratory Rate 20 Blood Pressure [Ri ght Arm] 159/74 H Pulse Oximetry 91 91 91 Oxygen Delivery Me thod CPAP CPAP Oxygen Flow Rate Fraction of Inspir ed Oxygen 08/15/22 15:02 08/15/22 16:40 08/15/22 19:23 Temperature 97 F L Pulse Rate 84 Pulse Rate [Apical ] 87 Pulse Rate [Pulse Oximeter] Respiratory Rate 20 22 Blood Pressure [Ri ght Arm] 169/60 H Pulse Oximetry 88 Oxygen Delivery Me thod Nasal Cannula Oxygen Flow Rate 1 Fraction of Inspir ed Oxygen 08/15/22 23:00 08/15/22 23:00 08/15/22 23:00 Temperature 97.6 F Pulse Rate Pulse Rate [Apical ] 80 Pulse Rate [Pulse Oximeter] Respiratory Rate 22 16 Blood Pressure [Ri ght Arm] 169/72 H Pulse Oximetry 88 88 Oxygen Delivery Me thod CPAP Oxygen Flow Rate Fraction of Inspir ed Oxygen 0.21 08/15/22 23:33 08/16/22 04:27 08/16/22 06:07 Temperature 97.7 F Pulse Rate 73 Pulse Rate [Apical ] 72 Pulse Rate [Pulse Oximeter] Respiratory Rate 18 Blood Pressure [Ri ght Arm] 148/74 H Pulse Oximetry 91 91 Oxygen Delivery Me thod CPAP Oxygen Flow Rate Fraction of Inspir ed Oxygen 32 08/16/22 06:07 08/16/22 06:42 08/16/22 07:06 Temperature 97.8 F Pulse Rate 73 Pulse Rate [Apical ] Pulse Rate [Pulse Oximeter] Respiratory Rate 18 20 Blood Pressure [Ri ght Arm] 173/83 H Pulse Oximetry 91 92 Oxygen Delivery Me thod CPAP Nasal Cannula Oxygen Flow Rate 1 1 Fraction of Inspir ed Oxygen 32 08/16/22 07:00 08/16/22 11:00 Temperature 97.4 F L Pulse Rate Pulse Rate [Apical ] Pulse Rate [Pulse Oximeter] 80 80 Respiratory Rate 20 20 Blood Pressure [Ri ght Arm] 107/49 L Pulse Oximetry 92 Oxygen Delivery Me thod Nasal Cannula Oxygen Flow Rate 1 Fraction of Inspir ed Oxygen Documenting provider has reviewed patient's vital signs: yes Labs Labs: Laboratory Results - last 24 hr 08/16/22 08/16/22 08/16/22 06:33 06:33 06:33 WBC 6.21 RBC 4.47 Hgb 13.6 Hct 40.8 MCV 91 MCH 30 MCHC 33 Plt Count 182 VBG pH 7.436 H VBG pCO2 45 VBG pO2 78.3 H VBG HCO3 30 H Sodium 135 Potassium 4.0 Chloride 102 Carbon Dioxide 29 BUN 29 Creatinine 0.6 Estimated Creat Clear 37.24 Estimated GFR 94 Glucose 94 Lactate 0.6 Calcium 8.5 Phosphorus 3.9 Albumin 3.8
--- NOTE | 2022-08-16 15:10 | PC.NURSE ---
Shift Note [id number]: Pt friendly and cooperative. Denies pain. 93% on 1L/O2 via NC, pt weaned to RA while awake and walked around unit with RT and PT maintaining 90% on RA. Voiding regularly on BSC, she is experiencing some stress incontinence with forceful coughing. LS with expiratory rhonci, pt is producing occasional thick yellow sputum. Scheduled duo-nebs and frequent use of aerobika in place. CPAP used during afternoon nap only. Per RT, pt to use home CPAP machine tonight at .
--- NOTE | 2022-08-16 15:19 | RESP.RT ---
Patient wore CPAP last night, FiO2 .21, CPAP 12 cm pressure, patient on room air up in chair SaO2 92%, walked patient with Physical Therapist around unit, on room air, SaO2 91%. Patient did not desaturate or become SOB. Patient Home CPAP set up at Bedside, with Oxygen bleed in, Goal tonight is; Patient will not need oxygen bleed in, will not be used unless SaO2 is <88%.
--- NOTE | 2022-08-16 16:16 | W.PM.CROSSCO ---
Subjective Subjective Interval history: discussed with RT patient can use home CPAP w/O2 if needed if oxygen falls below <88%
[2022-08-16] MEDS: atenoloL 25 MG TABLET PO (17:41)
[2022-08-16] MEDS: ENOXAPARIN 40 MG/0.4 ML INJ SUBCUT (20:29)
[2022-08-17] VITALS (7 sets, daily range): BP systolic 114–140; BP diastolic 47–70; PULSE 75–84; RESP 18–91; TEMP 35.9–36.6; O2SAT 91–95
[2022-08-17] MEDS: IPRAT-ALBUT 0.5-2.5 MG/3 ML NEB 1 NEB IH ×4 (01:18→14:24)
[2022-08-17] MEDS: OMEPRAZOLE 20 MG CAPSULE DR 40 MG PO (05:41)
--- NOTE | 2022-08-17 06:54 | PC.NURSE ---
Pt up in chair at the beginning of shift. Sats above 90% with RA. Productive cough intermittently throughout shift. Able to ambulate to bathroom with cane and SBA. Tele reading normal sinus rhythm. Pt wore CPAP until 0600 without oxygen addition.
[2022-08-17] MEDS: LACTOBACILLUS ACIDOPHILUS 1 TABLET 2 TAB PO ×2 (08:24→11:57)
[2022-08-17] MEDS: predniSONE 20 MG TABLET PO (08:24)
[2022-08-17] MEDS: AMOXICILLIN/CLAVULANATE 875 mg/125 mg TABLET PO (08:25)
[2022-08-17] MEDS: TORSEMIDE 20 MG TABLET 40 MG PO (08:29)
[2022-08-17] MEDS: ATORVASTATIN 10 MG TABLET PO (09:09)
[2022-08-17] MEDS: lisinopriL 20 MG TABLET PO (09:09)
[2022-08-17] MEDS: CLOPIDOGREL 75 MG TABLET PO (09:10)
[2022-08-17] MEDS: atenoloL 50 MG TABLET PO (09:10)
--- NOTE | 2022-08-18 15:47 | PM.DS1 ---
DS: Providers Provider Time Seen by Provider: 10:00 Date Seen: 08/18/22 Date of admission: 08/12/22 22:47 Primary care physician: Mikala Middleton MD Admitting Clinician: Selena Cook MD Consults: 08/12/22 22:10 Consult to Respiratory Therapy [CONS] Routine Comment: Reason(s) for RT Consult:: Consult 08/16/22 Consult to Occupational Therapy [CONS] Routine Comment: Reason(s) for OT Consult:: Evaluate and Treat Any Restrictions?:: No Restrictions Consult to Physical Therapy [CONS] Routine Comment: Reason(s) for PT Consult:: Evaluate and Treat Any Restrictions?:: No Restrictions Attending Physician on discharge: Christos Hayes MD Date of Discharge: 08/17/22 DS: Diagnosis Discharge Diagnosis (1) Acute respiratory failure with hypoxia: Status: Acute Problem details: - multifactorial (diastolic dysfunction noted on 2014 TTE, recent URI, possible COPD, known SELINA, possible tachycardia induced cardiomyopathy) - requiring BiPAP on presentation, later requiring only oxygen support via nasal cannula at low flow - discontinue BiPAP, utilize low-flow oxygen as needed, cover with steroids given wheezing, Zosyn IV antibiotics switched to Augmentin oral antibiotic for possible bronchitis in association with chronic obstructive pulmonary disease - repeat TTE demonstrates diastolic heart failure only. - respiratory therapy consult, including with use of Aerobika device (2) Pulmonary edema: Status: Acute Problem details: - given IV furosemide 20 mg x1 in the ED 08/12, 2 IV furosemide 20 mg doses 08/13, furosemide 40 mg IV x1 dose 08/14, torsemide 40 mg po once daily starting 08/15 (3) Non-ST elevation myocardial infarction (NSTEMI): Status: Acute (4) Pneumonia: Status: Acute (5) SELINA on CPAP: Status: Acute Problem details: Normally on CPAP at home. (6) Physical debility: Status: Acute Problem details: Chronic (7) Generalized weakness: Status: Acute Problem details: Acute on chronic. (8) PEBBLES (stress urinary incontinence, female): Status: Acute DS: Summary Hospital Course Hospital Course: Riitka Monroe is a 72 year old female who presented to the emergency room with her today with acute on chronic URI symptoms. Patient has been sick with cough and congestion for the past 2 weeks; initially seen in urgent care and given azithromycin and an inhaler.? Symptoms did not improve, she was seen again yesterday given another inhaler and Tessalon Perles.? This afternoon, age she felt that symptoms were worsening; began having severe dyspnea while washing dishes this evening.? then brought her to the emergency room. Patient has not been having fever.? She has been having a productive cough without hemoptysis.? She has not had lower extremity edema.? She has been sleeping well with her CPAP. ER course and findings: ?- initial oxygen sat 46% on room air in triage ?- patient immediately placed on BiPAP ?- mild elevation of D-dimer; CT chest did not reveal PE, mild bilateral axillary adenopathy noted, ground-glass infiltrates in right lower lobe and patchy atelectasis in lingula and left lower lobe ?- normal procalcitonin, mild leukocytosis with WBC of 14 ?- acidotic on initial VBG; improved to normal after 90 minutes on BiPAP ?- given nitro and Lasix IV ?- Green catheter placed Given patient's acute hypoxic respiratory failure, she is admitted to the hospital for management. With regard to her respiratory failure, initially she required BiPAP therapy continuously. Over time we were able to switch it to intermittent BiPAP therapy. In time we switched her from BiPAP to CPAP. Continue to require oxygen supplementation through the initial part of her hospitalization later on she was on room air oxygen support. Did require IV diuresis in own over time we were able to switch to oral diuresis. Presumably she has diastolic heart failure with essentially normal echocardiogram, EF 70 75% with the LVH. Presumably pulmonary edema triggered in part by pneumonia. Did have demand myocardial ischemia in association with all these multiple concurrent conditions. Remains stable on her home going medication for 24 hours before discharge home. Status at Discharge Overall status at discharge: patient is progressing back to baseline Time Spent with Patient Time attestation: Total time spent providing and/or coordinating discharge services: Time spent: Greater than 30 minutes Exam Narrative: Exam Narrative: Appears comfortable sitting in chair at bedside.? No acute distress. Alert and oriented to self, place, time, situation.? Talkative, articulate.? Mood and affect are congruent.? Anxious about leaving the hospital to soon.? Indicates to me that she is willing to stay here for the next week if need be. Lungs with fine end inspiratory rales.? No wheezing or rhonchi.? Heart tones with regular rhythm, normal S1-S2. Abdomen is obese with active bowel sounds, soft, nontender.? Transfers from supine to sitting and sitting to standing independently with only standby assist.? Ambulates with walker with only standby assist. Trace edema pretibially bilaterally. No focal motor neurologic deficits. Const: Documenting provider has reviewed patient's vital signs: yes Discharge Plan Discharge Disposition: Home, Self-Care Date of Admission: 08/12/22 22:47 Attending Provider on Discharge: Christos Hayes Primary Care Provider: Mikala Middleton Condition: Improved Anticipated Discharge Date/Time: 08/17/22 16:00 Discharge Medications: New torsemide 20 mg Tablet 40 mg PO DAILY@0800 30 Days Qty: 60 1RF sennosides-docusate sodium [Stool Softener-Laxative] 8.6-50 mg Tablet 1 tab PO DAILY PRN7 Days Qty: 7 0RF Lactobacillus acidophilus 0.5 mg (100 million cell) Tablet 2 tab PO BID 30 Days Qty: 120 0RF Continued triamcinolone acetonide 0.1 % cream 1 applic topical BID PRN Label Comments: APPLY TOPICALLY TO THE AFFECTED AREA TWICE DAILY NEEDED FOR RASH atorvastatin 10 mg tablet 10 mg PO DAILY omeprazole 40 mg capsule,delayed release(DR/EC) 40 mg PO DAILY clopidogrel 75 mg tablet 75 mg PO QAM lisinopril 20 mg tablet 20 mg PO DAILY atenolol 50 mg tablet 50 mg PO .COMPLEX Label Comments: TAKE 1 TABLET BY MOUTH EVERY MORNING AND 1/2 TABLET IN THE AFTERNOON. Rx Instructions: 50 mg orally Take one tablet in the morning and one-half tablet in the afternoon; benzonatate 100 mg capsule 100 mg PO BID-TID PRN (Reason: cough) Qty: 14 0RF albuterol sulfate 90 mcg/actuation HFA aerosol inhaler 2 puff inhalation Q4-6H PRN (Reason: shortness of breath or wheezing) Qty: 8.5 0RF Discharge Orders: Discharge Order (Routine); Ordered 08/17/22 Ordered By: Christos Hayes Patient Education: Torsemide (By mouth), Probiotic (By mouth), Senna (By mouth), Heart Failure (GEN), Urinary Incontinence (GEN), Kegel Exercises for Women (GEN), Community Acquired Pneumonia (GEN) Activity Level: No Restrictions and Activity as Tolerated Discharge Diet: 2 gm Sodium Follow Up Appointments: Mikala Middleton MD [Primary Care Provider] - 08/23/22 12:45 pm Forms: [employer] Info Instructions
== END 2022-08-17 16:57 | disposition home or self-care (01) | DRG 189 ==
LOC: ED 21:41 → MEDSURG 23:01
PROVIDERS: Internal Medicine; Admitting Provider Family Medicine; Emergency Provider Family Medicine; PCP Family Medicine; Visit Provider Family Medicine
DX: J96.01 Acute respiratory failure with hypoxia (principal); I21.4 Non-ST elevation (NSTEMI) myocardial infarction; J18.9 Pneumonia, unspecified organism; J81.0 Acute pulmonary edema; I50.30 Unspecified diastolic (congestive) heart failure; J44.0 Chronic obstructive pulmonary disease with (acute) lower respiratory infection; J20.9 Acute bronchitis, unspecified; G47.33 Obstructive sleep apnea (adult) (pediatric); Z99.89 Dependence on other enabling machines and devices; R53.1 Weakness; I11.0 Hypertensive heart disease with heart failure; Z86.718 Personal history of other venous thrombosis and embolism; I87.8 Other specified disorders of veins; N39.3 Stress incontinence (female) (male); Z86.73 Personal history of transient ischemic attack (TIA), and cerebral infarction without residual deficits
CPT/HCPCS: 36415; 71045; 71260; 80048; 80053; 80061; 80069; 80076; 81001; 82803; 83605; 83735; 83880; 84145; 84295; 84484; 85025; 85027; 85379; 86140; 87040; 87502; 87634; 87635; 93005; 93306; 94640; 94660; 94664; 94761; 97116; 97162; 97166; 97535; 99284; 99285; 99291; G0378; A9270; J1650; J1940; J2543; J2930; J3475; J7050; J7512; Q9967

== ENCOUNTER 2025-03-04 16:53 | Emergency (ER) | payer MEDICARE, BC, SELFPAY ==
--- OUTSIDE RECORDS SUMMARY | 2025-03-04 16:54 | XMS_ITS | Clinical Summary ---
Author Organization [facility] Address [address] [place] [id number] Care Team Providers Care Seed Service Advisor Name Role Phone Gareth Arroyo DDS Unavailable [phone] Ruy Callahan MD Unavailable Unavail able Mikala Middleton MD Primary Care Provider Allergies Active Allergy Reactions Criticality Noted Date Comments Adhesive Tape 02/08/2008 Meperidine Hives Hydrocodone Other - Describe In Comment Field 09/16/2015 wiervidhya dreams Ibuprofen *Unknown 08/12/2022 Nickel Rash 12/19/2006 Oxycodone Other - Describe In Comment Field 09/16/2015 widameon dreamjessica Medications zinc 50 mg tablet Take 1 tablet by mouth on Mondays and Fridays. 0 09/16/19 16 Active triamcinolone (ARISTOCORT; KENALOG) 0.1 % creamIndication s:Rash Apply topically to affected area(s) two times daily. 45 g 03/09/20 23 Active benzonatate (TESSALON) 100 mg capsuleIndicati ons:Cough, unspecified type Take 1 Capsule (100 mg) by mouth 3 times daily if needed for Cough. 180 Capsule 03/20/20 24 Active omeprazole (PRILOSEC) 40 mg Delayed-Release capsuleIndicati ons:History of anemia,History of gastric ulcer Take 1 Capsule (40 mg) by mouth once daily before a meal. 90 Capsule 3 08/22/19 25 Active atorvastatin (LIPITOR) 10 mg tabletIndicatio ns:History of ischemic stroke Take 1 Tablet (10 mg) by mouth at bedtime. 90 Tablet 1 08/22/19 25 Active atenoloL (TENORMIN) 25 mg tabletIndicatio ns:Hypertension , unspecified type Take 1 Tablet (25 mg) by mouth two times daily. 180 Tablet 3 08/22/19 25 Active torsemide (DEMADEX) 20 mg tabletIndicatio ns:Diastolic dysfunction TAKE 1 TABLET BY MOUTH EVERY DAY. IF WEIGHT IS UP MORE THAN 2LBS, TAKE 40MG RATHER THAN 20MG 180 Tablet 1 08/22/19 25 Active albuterol HFA (PRO-AIR; VENTOLIN; PROVENTIL) 90 mcg/actuation inhalerIndicati ons:Chronic cough Inhale 2 Puffs by mouth every 4 hours if needed for Shortness Of Breath or Wheezing. May fill as needed between appointments for chronic use. 3 Each 09/05/19 25 Active hydrocortisone 1 % creamIndication s:Dermatitis Apply topically to affected area(s) 4 times daily if needed for Itching. 336 g 2 12/24/19 25 Active clopidogreL (PLAVIX) 75 mg tabletIndicatio ns:History of ischemic stroke Take 1 Tablet (75 mg) by mouth once daily in the morning. 90 Tablet 02/18/20 25 Active lisinopriL (PRINIVIL; ZESTRIL) 5 mg tabletIndicatio ns:HTN (hypertension) Take 1 Tablet (5 mg) by mouth once daily. 90 Tablet 1 02/18/20 25 Active CPAPIndications :SELINA (obstructive sleep apnea) RESMED CPAP (E0601) machine for home use at pressure: 11.6 cmw, Choice of mask (A7030 or A7034) w/full face cushion (A7031) x1/mo, nasal cushion (A7032) x2/mo, or nasal pillows (A7033) x 2/mo; Length of Need: 99 months; Frequency of use: Daily 1 Each 02/27/20 25 Active CPAPIndications :SELINA (obstructive sleep apnea) CPAP machine for home use at pressure 11.6cmw, CPAP mask- mask of choice, fit to comfort one per 3 months 1 Each 09/27/19 24 025 Discontin ued(*Med complete/ Regimen complete/ Level of care change) lisinopriL (PRINIVIL; ZESTRIL) 5 mg tabletIndicatio ns:HTN (hypertension) Take 1 Tablet (5 mg) by mouth once daily. 90 Tablet 1 08/22/19 25 025 Discontin ued(Reord er (E-cancel not sent)) clopidogreL (PLAVIX) 75 mg tabletIndicatio ns:History of ischemic stroke Take 1 Tablet (75 mg) by mouth once daily in the morning. 90 Tablet 1 08/22/19 25 025 Discontin ued(Reord er (E-cancel not sent)) Active Problems Problem Noted Date Diagnosed Date Hypertensive heart disease with heart failure Near syncope 01/20/2023 Near syncope 01/19/2023 Elevated troponin 01/19/2023 Obesity, morbid 10/11/2022 History of anemia 08/12/2021 History of ischemic stroke 08/12/2021 Hypertensive disease 08/12/2021 Cystocele with prolapse 08/12/2021 Actinic keratoses 08/12/2021 Chronic eczema 02/08/2018 Actinic keratosis 02/08/2018 Acute gastric ulcer 06/09/2016 Overview (06/09/2016): EGD 05/2016 several small gastric ulcers, H. pylori negative, stop NSAIDs SELINA 12/30/2015 AHI-29 01/07/2016 ACP (advance care planning) 03/12/2015 Overview (03/12/2015): Patient has identified Health Care Agent(s): No Add Health Care Agents: No Patient has Advance Care Plan Documents (Health Care Directive, POLST): No, Pt declined.. Patient has identified Specific Treatment Preferences: Yes Specific Treatment Preferences: a.) Code Status: CPR/Attempt Resuscitation SW met with Pt 03/12/2015. Pt states she may have a healthcare directive, but is uncertain. SW offered healthcare packet - Pt declined. Pt states if she's unable to communicate her healthcare wishes her spouse, Dylon Monroe - H: [phone] C: [phone], would be her primary spokesperson. Deena Cohen, AJCOB, ELECTRICAL TESTER...Pager [phone]... ext. 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 Resolved Problems Problem Noted Date Diagnosed Date Resolved Date Chronic obstructive pulmonar y disease with (acute) lower respiratory infection 03/20/202408/01 snf (current) use of anticoagulants 08/10/2012 09/06/2012 Status post knee surgery 08/10/201201/2013 Encounters Date Type Department Care Team Description 02/26/2025 10:30 AM CDT Office Visit [facility] [address] [place] [address] Alfred Khan MD Sleep Follow-up 02/26/2025 Travel 02/25/2025 Orders Only [facility] Scanner 1 scan: (1-Ord) RESMED, COMPLIANCE RESPORT, 02/25/2025 02/14/2025 Refill [facility] [address] [place] [address] Mikala Middleton MD Refill Request (CLOPIDOGREL 75 TAB, Lisinopril 5mg tablets); LISINOPRIL 12/20/2024 Refill [facility] [address] [place] [address] Mikala Middleton MD Refill Request (hydrocortisone ) from Last 3 Months Immunizations Immunization Administration Dates Next Due Amb Influenza, Inactivated A IIV4 (Age 65+ Years) Preserv Free 04/16/2020 COVID-19 VACCINE SPIKEVAX (M ODERNA 50MCG/0.5ML) 12YO+ PFS 02/26/2025,05/17/2024,05/11/2023 COVID-19 vaccine (PageBites NTech 30mcg/0.3mL) 12YO+ BIVALENT PF, MDV 05/09/2022 COVID-19 vaccine (PageBites NTech 30mcg/0.3mL) 12YO+ MECHE-SUCROSE PF, MDV 12/29/2021 COVID-19 vaccine (PageBites NTech 30mcg/0.3mL) PF, MDV 06/01/2021 Hepatitis B (Adult) 01/06/2005 Influenza A (H1N1), Inactivated 07/01/2009 Influenza, High-dose Inactivated 024,05/31/2016,05/13/2015,05/23 Influenza, IIV3 (Age >=3 years) 07/02/2013,05/29 Influenza, Inactivated AIIV4 (Age 65+ Years) Preserv Free 05/11/2023,05/09/2022,06/01/2021 Influenza, Inactivated IIV3 (Age 65+ Years) Preserv Free 08/09/2019,07/20/2018,04/25/2017 Pneumococcal Poly,23-Valent (Pneumovax) 07/02/2013 Pneumococcal conj 13-Valent (Prevnar 13) 07/02/2014 Polio Virus, Unspecified 08/25/1998 RSV, Bivalent Vaccine Recons tituted (Abrysvo 120MCG/0.5mL) 08/02/2023 TD, UNSPECIFIED 12/22/2022 Td (Age >=7 Years) 02/10/2003 Tdap 01/12/2012 Zoster (Shingrix-RZV, recombinant) 08/26/2020, Zoster (Zostavax-ZVL, live) 01/05/2011 Family History Medical History Relation Name Comments Stroke Father Stroke Maternal Grandfather Heart Disease Maternal Grandmother Diabetes Mother Hypertension Mother Heart Disease Paternal Grandfather Stroke Paternal Grandmother Cancer Son leukemia Cancer-breast No Family History Cancer-ovarian No Family History Relation Name Status Comments Brother 1 Alive Brother 2 Alive Brother 3 Alive Father (Age 72) Maternal Grandfather Maternal Grandmother Mother (Age 86) Paternal Grandfather Paternal Grandmother Sister 1 Alive Sister 2 Alive Sister 3 Alive Sister 4 Alive Son Social History Tobacco Use Types Packs/Day Years Used Date Smoking Tobacco: Former Cigarettes 0.2 10 0 07/31/1965 - 07/31/1975 Smokeless Tobacco: Never Tobacco Cessation:Counseling Given: Yes Comments:30 years ago 1975 Alcohol Use Standard Drinks/Week Comments Yes 0 (1 standard drink = 0.6 oz pur e alcohol) occasionally/socially PHQ-2 Answer Date Recorded PHQ-2 TOTAL SCORE 0 03/20/2024 Social Connections Answer Date Recorded Do you often feel lonely or isolated from those around you? 0 09/12/2023 Alcohol Use Answer Date Recorded How often do you have a drink containing alcohol ? 3 10/06/2021 How many drinks containing a lcohol do you have on a typical day when you are drinking? 0 10/06/2021 How often do you have five or more drinks on one occasion? 0 10/06/2021 Financial Resource Strain Answer Date R ecorded Difficulty of Paying Living Expenses 3 09/12/2023 Difficulty of Paying Living Expenses Not on file 09/12/2023 Food Insecurity Answer Date Recorded Do you worry your food will run out before you are able to buy more? 1 09/12/2023 Transportation Needs Answer Date Record ed Does lack of transportation keep you from medica l appointments? 1 09/12/2023 Does lack of transportation keep you from work, meetings or getting things that you need? 1 09/12/2023 Housing Stability Answer Date Recorded What is your housing situation today? 1 09/12/2023 Utilities Answer Date Recorded Do you have trouble paying f or utilities (for example, heat, electricity, water, phone)? 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 Gender Identity Not on file Sexual Orientation Not on file Occupation Industry Job Start Date Job End Date Not on file Not on file Not on file Not on file Obstetrics History Para Term AB IAB SAB Ectopic Multiple Livin g Live Births 3 3 Date Outcome GA Total Labor Labor/2nd/3rd Weight Sex Type Anes PTL Gissel A1 A5 Name Clin Last Filed Vital Signs Vital Sign Reading Time Taken Comments Blood Pressure 132/78 02/26/2025 10:28 AM CDT Pulse 63 02/26/2025 10:28 AM CDT Temperature 36.6 C (97.8 F) 01/20/2023 12:00 PM CDT Respiratory Rate 16 01/20/2023 12:00 PM CDT Oxygen Saturation 97% 02/26/2025 10:28 AM CDT Inhaled Oxygen Concentration - - Weight 91.3 kg (201 lb 3.2 oz) 02/26/2025 10:28 AM CDT Height 151 cm (4' 11.45) 02/26/2025 10:28 AM CD T Body Mass Index 40.02 02/26/2025 10:28 AM CDT Plan of Treatment Upcoming Encounters Date Type Department Care Team (Late st Contact Info) Description 03/21/2025 9:10 AM CDT Office Visit [facility] [address] [place] [address] Mikala Middleton MD [address] [place] [address] Health Maintenance Due Date Last Done Comments Hepatitis B series for 19+ ( 2 of 3 - 19+ 3-dose series) 02/03/2005 01/06/2005 Depression screening for age 12+ 03/21/2025 03/21/2024, 03/20/2024, 10/11/2022, Additional history exists Medicare Wellness for age 65+ 03/21/2025, 10/11/2022, 08/12/2021, Additional history exists Influenza Vaccine (#1) 2025 , 05/11/2023, 05/09/2022, Additional history exists BMI (ht and wt on same day) for age 18+ 02/26/2026 02/26/2025, 03/20/2024, 09/27/2023, Additional history exists Tetanus booster 12/22/2032 12/22/2022, 12/29, 02/10/2003 Hepatitis C screening for ag e 18-79 Completed 12/30/2004 Pneumococcal series for age 50+ Completed 4, 07/02/2013 Zoster (shingles) series for age 50+ Completed 08/26/2020, 04/16/2020, 01/05/2011 RSV vaccine for adults or Completed 08/02/2023 DEXA/DXA scan for age 65+ Completed 2023, 07/12/2016, 03/26/2009 COVID-19 vaccine series Completed 02/27/20, 05/17/2024, 05/11/2023, Additional history exists Goals Goal Patient Goal Type Associated Problems Recent Progress Patient-Stated? Author BLOOD PRESSURE-MA INTAINS BP LESS THAN 130/80 Blood Pressure No Saadia Velazco NP Procedures Procedure Name Priority Date/Time Associated Diagnosis Comments SCAN-DIAGNOSTIC REPORT 02/25/2025 12:00 AM CDT XR DXA BONE DENSITY 2 SITES AXIAL Routine 03/27/2024 11:23 AM CDT Menopause ANTI HCV Timed 12/30/2004 1:54 PM CDT from Last 3 Months or Most Recently Relevant to Health Maintenance Results * SCAN-DIAGNOSTIC REPORT (02/25/2025 12:00 AM CDT) us Scanner OTHER Final Result * XR DXA BONE DENSITY 2 SITES AXIAL (03/27/2024 11:23 AM CDT) Anatomical Region Laterality Modality Spine, HIPS, HIPL, HIPR Other Impressions 04/05/2024 4:18 PM CDT Normal bone density. RECOMMENDATIONS: The National Osteoporosis Foundation recommends pharmacologic treatment for patients with T-scores of -2.5 or less, patients with prior history of fragility fractures, or patients with 10-year probability of greater than 3% at hips or greater than 20% of suffering major osteoporotic fractures. Recommend continued optimization of calcium and vitamin D intake through dietary means and/or supplementation and regular exercise. Repeat scan recommended in 3-5 years. Nikki Cardozo PA-C [facility] 04/05/2024 Narrative 04/05/2024 4:18 PM CDT For Patients: Results are automatically released to your [facility] account once available, in compliance with federal regulations. This means that you may see your results before your provider has had a chance to review them. Please allow 2-3 business days for your provider to comment on the results. XR DXA Bone Mineral Density (BMD) EXAM LOCATION: [facility] [address] [facility] [address] PATIENT NAME: Ritika Monroe DATE OF : 1950 EXAM DATE: 03/27/2024 REQUESTING PROVIDER: Mikala Middleton MD GENDER AT : female HEIGHT: 4' 11.45 (03/20/2024) WEIGHT: 205 lb 9.6 oz (03/20/2024) MENOPAUSAL STATUS: Postmenopausal RACE/ETHNICITY: White RISK FACTORS: Rheumatoid Arthritis, Smoking (prior), and White Race CURRENT MEDICATION FOR BONE LOSS: NONE INDICATION: Post-Menopause and Follow-up of normal DXA COMPARISON DATE(S): 2008 DXA scans are compared to prior studies for a patient only when the two (or more) studies were performed on the same scanner. It is not possible to compare data generated on one scanner to data from another because there are not standards in DXA equipment. This applies even if the two scanners are made by the same russian teacher. PROCEDURE: Dual-energy x-ray absorptiometry performed with routine technique. Reporting is completed in the form of a T-score. The T-score represents the standard deviation from peak bone mass based on young healthy adult. A Z-score is used for diagnosis in premenopausal women, and for men under the age of 50. FINDINGS: RESULT LUMBAR SPINE L1 - L4 BMD: 1.530 g/cm2 T-Score: + 2.7 Z-Score: + 3.5 Change from prior in 2008: Increase 13.2%. RESULTS FEMUR Left femoral neck BMD: 1.133 g/cm2 T-Score: + 0.7 Z-Score: + 2.0 Change from prior in 2016: Decrease 5.4%. Right femoral neck BMD: 1.042 g/cm2 T-Score: + 0.0 Z-Score: + 1.4 Change from prior in 2016: Decrease 8.8%. Left hip BMD: 1.173 g/cm2 T-Score: + 1.3 Z-Score: + 2.4 Change from prior in 2016: Decrease 4.1%. Right hip BMD: 1.078 g/cm2 T-Score: + 0.6 Z-Score: + 1.7 Change from prior in 2016: Decrease 10.0%. WHO criteria: Normal: T-score at or above -1 SD Osteopenia: T-score between -1.1 and -2.4 SD Osteoporosis: T-score at or below -2.5 SD us Mikala Middleton MD DEXA Final Resul t * ANTI HCV (12/30/2004 1:54 PM CDT) ANTI HCV Non-reactiv e [facility] 12/30/2004 1:54 PM CDT 12/30/2004 10:58 PM CDT Narrative [facility] - 01/04/2005 11:07 AM CDT Testing Performed By [place], [place] Erickson Mathew MD SEND OUTS Final Resu lt [address] [address] from Last 3 Months or Most Recently Relevant to Health Maintenance [place] [address] MEDICARE PART B HB ONLY MEDICARE PB ONLY [facility] Advance Directives * Full Code (Latest Code Status on File) Date Activated Date Inactivated Comments 01/19/2023 9:57 PM 01/20/2023 5:37 PM Question Answer Comments Code Status Discussion: Reviewed Preferences * Full Code Date Activated Date Inactivated Comments 03/11/2015 2:41 PM 03/13/2015 5:12 PM Care Teams Seed Service Advisor Relationship Specialty Start Date End Date Mikala Middleton MD [address] [place] [address] PCP - General Family Practice 08/27/18 Gareth Arroyo, DDS [address] [facility] [address] [place] [address] Dentistry - General 07/02/13 Ruy Callahan MD Surgery - Orthopedic 07/12/16
[2025-03-04 16:56] VITALS: BP 113/70; PULSE 76; RESP 20; TEMP 35.7; O2SAT 95; BMI 39.1
--- NOTE | 2025-03-04 17:21 | CRLHL7_ITS ---
For Patients: As a result of the Century Cures Act, medical imaging exams and procedure reports are released immediately into your electronic medical record. You may view this report before your referring provider. If you have questions, please contact your health care provider. INDICATION: Leg pain and swelling. TECHNIQUE: Ultrasound venous duplex lower right extremity. Compression venous exam was performed using pan-scale, color Doppler, and spectral Doppler analysis. COMPARISON: None. FINDINGS: Deep veins: Sonographic imaging demonstrates the right common femoral, deep femoral, superficial femoral, popliteal, posterior tibial and the contralateral common femoral veins to be fully compressible with normal color Doppler blood flow. Superficial veins: Greater saphenous vein is fully compressible. No popliteal cyst. IMPRESSION: Normal right lower extremity venous ultrasound, no sign of deep venous thrombosis. Dictated by Pete Parra MD @ 03/04/2025 6:05:42 PM (Electronically Signed)
--- NOTE | 2025-03-04 18:08 | ED.LOWEXIN ---
HPI - Extremity Injury (Lower) General Date Seen: 03/04/25 Chief Complaint: Extremity Pain/Injury, Lower Stated Complaint: pain/swelling R leg Time Seen by Provider: 03/04/25 17:04 Source: patient Mode of arrival: ambulatory Limitations: no limitations History of Present Illness HPI Narrative: Patient is a 75-year-old female presenting to the emergency department for right leg pain. She states she was doing morning exercises and then went and did her errands today without any issues. The pain did seem to start this afternoon. She has been able to ambulate but with pain. She uses her cane denies any falls. Denies any recent injuries. Is concerned she could have a blood clot. Have previous blood clot 40 years ago. Is currently on Plavix. No other blood thinners. She states the paid is on the medial aspect of her right leg mostly in the thigh and some in the calf. No other concerns noted. Does state there is some mild right leg swelling. Denies fevers, chills, chest pain, shortness of breath. Related Data Home Medications ?Medication ?Instructions ?Recorded ?Confirmed atenolol 50 mg tablet 50 mg PO .COMPLEX 07/10/22 03/04/25 atorvastatin 10 mg tablet 10 mg PO DAILY 07/10/22 03/04/25 clopidogrel 75 mg tablet 75 mg PO QAM 07/10/22 03/04/25 lisinopril 20 mg tablet 20 mg PO DAILY 07/10/22 03/04/25 omeprazole 40 mg capsule,delayed 40 mg PO DAILY 07/10/22 03/04/25 release triamcinolone acetonide 0.1 % 1 applic topical BID PRN 07/10/22 03/04/25 topical cream Previous Rx's ?Medication ?Instructions ?Recorded albuterol sulfate 90 mcg/actuation 2 puff inhalation Q4-6H PRN 08/11/22 aerosol inhaler shortness of breath or wheezing #8.5 grams Lactobacillus acidophilus 0.5 mg 2 tab PO BID 30 days #120 tabs 08/17/22 (100 million cell) tablet sennosides 8.6 mg-docusate sodium 1 tab PO DAILY PRN 7 days #7 tabs 08/17/22 50 mg tablet (Stool Softener-Laxative) torsemide 20 mg tablet 40 mg (2 x 20 mg) PO DAILY@0800 30 08/17/22 days #60 tabs albuterol sulfate 90 mcg/actuation 2 puff inhalation Q4-6H PRN 08/10/24 aerosol inhaler shortness of breath or wheezing #6.7 grams azithromycin 250 mg tablet See Rx Instructions PO .COMPLEX #6 08/10/24 tabs Allergies Allergy/AdvReac Type Severity Reaction Status Date / Time adhesive tape Allergy Unknown Verified 03/04/25 16:12 ibuprofen Allergy Unknown Verified 03/04/25 16:12 meperidine (From Demerol) Allergy Unknown Verified 03/04/25 16:12 nickel Allergy Unknown Verified 03/04/25 16:12 oxycodone AdvReac Mild weird Verified 03/04/25 16:12 dreams hydrocodone AdvReac weird Verified 03/04/25 16:12 dreams Review of Systems Narrative: Pertinent systems reviewed and were negative unless stated in HPI PFSH PFS Medical History Diastolic CHF ?I50.30 - Unspecified diastolic (congestive) heart failure (ICD-10) DVT (deep venous thrombosis) ?I82.409 - Acute embolism and thrombosis of unspecified deep veins of unspecified lower extremity (ICD-10) CVA (cerebral vascular accident) ?I63.9 - Cerebral infarction, unspecified (ICD-10) SELINA on CPAP ?G47.33 - Obstructive sleep apnea (adult) (pediatric) (ICD-10) ?Z99.89 - Dependence on other enabling machines and devices (ICD-10) Hearing loss, bilateral ?H91.93 - Unspecified hearing loss, bilateral (ICD-10) Carpal tunnel syndrome ?G56.00 - Carpal tunnel syndrome, unspecified upper limb (ICD-10) History of anemia ?Z86.2 - Personal history of diseases of the blood and blood-forming organs and certain disorders involving the immune mechanism (ICD-10) Hypertension ?I10 - Essential (primary) hypertension (ICD-10) Ischemic stroke ?I63.9 - Cerebral infarction, unspecified (ICD-10) Cystocele Chronic eczema ?L30.9 - Dermatitis, unspecified (ICD-10) Acute gastric ulcer ?K25.3 - Acute gastric ulcer without hemorrhage or perforation (ICD-10) Surgical History H/O vaginal hysterectomy ?Z90.710 - Acquired absence of both cervix and uterus (ICD-10) History of total replacement of left shoulder joint ?Z96.612 - Presence of left artificial shoulder joint (ICD-10) History of total left knee replacement ?Z96.652 - Presence of left artificial knee joint (ICD-10) Hx of appendectomy ?Z90.49 - Acquired absence of other specified parts of digestive tract (ICD-10) Social History Narrative: Patient lives with in [place], has 3 adult children. 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 She smoked from [id number]. She drinks 1 glass of wine every other day during the winter; 1 glass of beer every other day during the summer. Requests full code status. Highest level of school completed/degree received: high school graduate Smoking Status: Former smoker Do you use any of these nicotine containing products: None Second hand tobacco smoke exposure: No How often do you have a drink containing alcohol: 2-3 times a week Alcohol type: wine Alcohol type details: 1 glass 3 times a week How many standard drinks containing alcohol do you have on a typical day: 1 or 2 How often do you have six or more drinks on one occasion: Never AUDIT-C Alcohol total score: 3 Non-prescribed substance use: denies use Caffeine: Yes (coffee) service: No Exam Narrative: Exam Narrative: Const: Well-nourished, Well-developed, in mild distress Eyes: PERRL, no conjunctival injection, and symmetrical lids HENT: Atraumatic external nose and ears. Moist mucous membranes. CVS: RRR, No murmurs or gallops. Peripheral pulses 2+ and equal in all extremities RESP: Unlabored respiratory effort. Clear to auscultation bilaterally. MSK:Extremities w/o deformity, Normal Active ROM, tenderness to palpation right lower extremity to the medial aspect of the thigh and the calf. No obvious swelling noted Skin: Warm, Dry. No rashes or lesions. Neuro: Normal Muscle tone, No focal neurological deficits. Psych: Awake, Alert, & Oriented x3. Appropriate mood and affect. Const: Vital Signs, click to edit/add: Vital Signs - 24 hr 03/04/25 16:56 Temperature 96.2 F L Pulse Rate [Pulse Oximeter] 76 Respiratory Rate 20 Blood Pressure [Ri ght Upper Arm] 113/70 Pulse Oximetry 95 Oxygen Delivery Me thod Room Air Course Vital Signs Vital signs: Initial Vital Signs Temperature 96.2 F L 03/04/25 16:56 Temperature Source Temporal Artery Scan 03/04/25 16:56 Pulse Rate 76 03/04/25 16:56 Respiratory Rate 20 03/04/25 16:56 Blood Pressure 113/70 03/04/25 16:56 Blood Pressure Mean 84 03/04/25 16:56 Blood Pressure Position Sitting 03/04/25 16:56 Pulse Oximetry 95 03/04/25 16:56 Oxygen Delivery Method Room Air 03/04/25 16:56 Vital Signs Temperature 96.2 F L 03/04/25 16:56 Pulse Rate 76 03/04/25 16:56 Respiratory Rate 20 03/04/25 16:56 Blood Pressure 113/70 03/04/25 16:56 Pulse Oximetry 95 03/04/25 16:56 Oxygen Delivery Method Room Air 03/04/25 16:56 Temperature 96.2 F L 03/04/25 16:56 Pulse Rate 76 03/04/25 16:56 Respiratory Rate 20 03/04/25 16:56 Blood Pressure 113/70 03/04/25 16:56 Pulse Oximetry 95 03/04/25 16:56 Oxygen Delivery Method Room Air 03/04/25 16:56 MDM - Extremity Injury (Lower) MDM Narrative Medical decision making narrative: Patient is 75-year-old female presenting for right leg pain. Will do an ultrasound to look for signs of a DVT. I do not notice any obvious swelling to the leg though and while she does have calf pain is only to the medial aspect consistent with her thigh pain. I do think she more likely strained some muscles with her activities today. Ultrasound returned showing no abnormalities. I do believe she is safe for discharge. Imaging Data Venous US: Attestation: I have reviewed the pertinent imaging results. Radiologist's impression: Normal right lower extremity venous ultrasound, no sign of deep venous thrombosis. Dictated by Pete Parra MD @ 03/04/2025 6:05:42 PM Discharge Plan Discharge Clinical Impression: Leg pain, right Patient Disposition: Home, Self-Care Condition: Stable Instructions: Muscle Strain (ED) Additional Instructions: I believe your symptoms are most likely a muscle strain. There is no signs of a blood clot. Recommend Tylenol and ibuprofen for pain and to ice the leg for 20 minutes at a time 3 times a day. Return to emergency department for new or worsening symptoms. Prescriptions: No Action azithromycin 250 mg tablet See Rx Instructions PO .COMPLEX Qty: 6 0RF Rx Instructions: For 250 mg dose pack: take 500 mg today (day 1), then 250 mg for 4 days (days 2-5) PO albuterol sulfate 90 mcg/actuation HFA aerosol inhaler 2 puff inhalation Q4-6H PRN (Reason: shortness of breath or wheezing) Qty: 6.7 0RF triamcinolone acetonide 0.1 % cream 1 applic topical BID PRN Patient Comments: APPLY TOPICALLY TO THE AFFECTED AREA TWICE DAILY NEEDED FOR RASH atorvastatin 10 mg tablet 10 mg PO DAILY omeprazole 40 mg capsule,delayed release(DR/EC) 40 mg PO DAILY clopidogrel 75 mg tablet 75 mg PO QAM lisinopril 20 mg tablet 20 mg PO DAILY atenolol 50 mg tablet 50 mg PO .COMPLEX Patient Comments: TAKE 1 TABLET BY MOUTH EVERY MORNING AND 1/2 TABLET IN THE AFTERNOON. Rx Instructions: 50 mg orally Take one tablet in the morning and one-half tablet in the afternoon; albuterol sulfate 90 mcg/actuation HFA aerosol inhaler 2 puff inhalation Q4-6H PRN (Reason: shortness of breath or wheezing) Qty: 8.5 0RF torsemide 20 mg Tablet 40 mg PO DAILY@0800 30 Days Qty: 60 1RF sennosides-docusate sodium [Stool Softener-Laxative] 8.6-50 mg Tablet 1 tab PO DAILY PRN7 Days Qty: 7 0RF Lactobacillus acidophilus 0.5 mg (100 million cell) Tablet 2 tab PO BID 30 Days Qty: 120 0RF Follow Up/Referrals: Mikala Middleton MD [Primary Care Provider, Family Practice] Stand Alone Forms: Subject Companyth Info Instructions
== END 2025-03-04 18:57 | disposition home or self-care (01) ==
PROVIDERS: Emergency Provider Student in an Organized Health Care Education/Training Program; PCP Family Medicine
DX: M79.661 Pain in right lower leg (principal)
CPT/HCPCS: 93971; 99283

== ENCOUNTER 2025-05-25 16:06 | Observation (INO) | payer MEDICARE, BC, SELFPAY ==
[2025-05-25] VITALS (10 sets, daily range): BP systolic 152–172; BP diastolic 72–101; PULSE 64–90; RESP 14–22; TEMP 35.9–36.6; O2SAT 89–99; BMI 37.8; BMI 36.6
--- OUTSIDE RECORDS SUMMARY | 2025-05-25 16:09 | XMS_ITS | Clinical Summary ---
Author Organization [facility] Address [address] [place] [id number] Care Team Providers Care Audit Senior Associate Name Role Phone Gareth Arroyo DDS Unavailable Ruy Callahan MD Unavailable Unavail able Mikala Middleton MD Primary Care Provider Allergies Active Allergy Reactions Criticality Noted Date Comments Adhesive Tape 02/08/2008 Meperidine Hives Hydrocodone Other - Describe In Comment Field 09/16/2015 wierd dreams Ibuprofen *Unknown 08/12/2022 Nickel Rash 12/19/2006 Oxycodone Other - Describe In Comment Field 09/16/2015 [facility]ier[facility] dreams Medications zinc 50 mg tablet Take 1 tablet by mouth on Mondays and Fridays. 0 6 Active triamcinolone (ARISTOCORT; KENALOG) 0.1 % creamIndication s:Rash Apply topically to affected area(s) two times daily. 45 g 3 Active hydrocortisone 1 % creamIndication s:Dermatitis Apply topically to affected area(s) 4 times daily if needed for Itching. 336 g 2 5 Active CPAPIndications :SELINA (obstructive sleep apnea) RESMED CPAP (E0601) machine for home use at pressure: 11.6 cmw, Choice of mask (A7030 or A7034) w/full face cushion (A7031) x1/mo, nasal cushion (A7032) x2/mo, or nasal pillows (A7033) x 2/mo; Length of Need: 99 months; Frequency of use: Daily 1 Each 5 Active torsemide (DEMADEX) 20 mg tabletIndicatio ns:Diastolic dysfunction TAKE 1 TABLET BY MOUTH EVERY DAY. IF WEIGHT IS UP MORE THAN 2LBS, TAKE 40MG RATHER THAN 20MG 180 Tablet 1 5 Active omeprazole (PRILOSEC) 40 mg Delayed-Release capsuleIndicati ons:History of anemia,History of gastric ulcer Take 1 Capsule (40 mg) by mouth once daily before a meal. 90 Capsule 3 5 Active lisinopriL (PRINIVIL; ZESTRIL) 5 mg tabletIndicatio ns:HTN (hypertension) Take 1 Tablet (5 mg) by mouth once daily. 90 Tablet 1 5 Active clopidogreL (PLAVIX) 75 mg tabletIndicatio ns:History of ischemic stroke Take 1 Tablet (75 mg) by mouth once daily in the morning. 90 Tablet 1 5 Active atorvastatin (LIPITOR) 10 mg tabletIndicatio ns:History of ischemic stroke Take 1 Tablet (10 mg) by mouth at bedtime. 90 Tablet 1 5 Active carvediloL (COREG) 3.125 mg tabletIndicatio ns:HTN (hypertension) Take 1 Tablet (3.125 mg) by mouth two times daily with meals. To replace atenolol 180 Tablet 3 5 Active albuterol HFA (PRO-AIR; VENTOLIN; PROVENTIL) 90 mcg/actuation inhalerIndicati ons:Chronic cough Inhale 2 Puffs by mouth every 4 hours if needed for Shortness Of Breath or Wheezing. May fill as needed between appointments for chronic use. 3 Each 2 5 Active Active Problems Problem Noted Date Diagnosed Date Prediabetes 04/10/2025 Hypertensive heart disease with heart failure Near [...] wishes her spouse, Dylon Monroe - H: [phone] C: [phone], would be her primary spokesperson. Deena Cohen, CHILDR[employer] SUPERVISOR, [facility]...Pager [phone]... ext. [phone], contact via anwpaging Acute ischemic stroke 03/12/2015 [...] y disease with (acute) lower respiratory infection 03/20/2024 01/2 09/2024 snf (current) use of anticoagulants 08/10/2012 09/06/2012 Status post knee surgery 08/10/201201/2013 Encounters Date Type Department Care Team Description 04/10/2025 10:50 AM CDT Office Visit [facility] [address] [place] [address] Mikala Middleton MD Medicare ANNUAL (subsequent) Visit (75 year old ) 04/10/2025 Travel 03/10/2025 Refill [facility] [address] [place] [address] Mikala Middleton MD Refill Request (Albuterol HFA Inh (200 puffs) 6.7gm ) 03/04/2025 Orders Only [facility] Scanner 1 scan: (1-Ord) [facility], 03/04/2025 02/26/2025 10:30 AM CDT Office Visit [facility] [address] [place] [address] Alfred Khan MD Sleep Follow-up 02/26/2025 Travel 02/25/2025 Orders Only [facility] Scanner 1 scan: (1-Ord) RESMED, COMPLIANCE RESPORT, 02/25/2025 from Last 3 Months Immunizations Immunization Administration Dates Next Due Amb Influenza, Inactivated A IIV4 (Age 65+ Years) Preserv Free 04/16/2020 COVID-19 VACCINE SPIKEVAX (M ODERNA 50MCG/0.5ML) 12YO+ PFS 02/26/2025,05/17/2024,05/11/2023 COVID-19 vaccine (Pfizer-Bio NTech 30mcg/0.3mL) 12YO+ BIVALENT PF, MDV 05/09/2022 COVID-19 vaccine (Pfizer-Bio NTech 30mcg/0.3mL) 12YO+ MECHE-SUCROSE PF, MDV 12/29/2021 COVID-19 vaccine (Pfizer-Bio NTech 30mcg/0.3mL) PF, MDV 06/01/2021 Hepatitis B (Adult) 04/10/2025,01/06/2005 Influenza A (H1N1), Inactivated 07/01/2009 Influenza, High-dose Inactivated 024,05/31/2016,05/13/2015,05/23 Influenza, IIV3 (Age >=3 years) 07/02/2013,05/29 Influenza, Inactivated AIIV4 (Age 65+ Years) Preserv Free 05/11/2023,05/09/2022,06/01/2021 Influenza, Inactivated IIV3 (Age 65+ Years) Preserv Free 04/10/2025,08/09/2019,07/20/2018,04/25 Pneumococcal Poly,23-Valent (Pneumovax) 07/02/2013 Pneumococcal conj 13-Valent (Prevnar 13) 07/02/2014 Polio Virus, Unspecified 08/25/1998 RSV, Bivalent Vaccine Recons tituted (Abrysvo 120MCG/0.5mL) 08/02/2023 TD, UNSPECIFIED 12/22/2022 Td (Age >=7 Years) 12/22/2022,02/10/2003 Tdap 01/12/2012 Zoster (Shingrix-RZV, recombinant) 08/26/2020, Zoster [...] PHQ-2 Answer Date Recorded PHQ-2 TOTAL SCORE 1 04/10/2025 Social Connections Answer Date Recorded Do you often feel lonely or isolated from those around you? 0 04/10/2025 Alcohol Use Answer Date Recorded How often do you have a drink containing alcohol ? 1 04/10/2025 How many drinks containing a lcohol do you have on a typical day when you are drinking? 0 04/10/2025 How often do you have five or more drinks on one occasion? 0 04/10/2025 Financial Resource Strain Answer Date R ecorded Difficulty of Paying Living Expenses 3 04/10/2025 Difficulty of Paying Living Expenses Not on file 04/10/2025 Food Insecurity Answer Date Recorded Do you worry your food will run out before you are able to buy more? 1 04/10/2025 Transportation Needs Answer Date Record ed Does lack of transportation keep you from medica l appointments? 1 04/10/2025 Does lack of transportation keep you from work, meetings or getting things that you need? 1 04/10/2025 Housing Stability Answer Date Recorded What is your housing situation today? 1 04/10/2025 Utilities Answer Date Recorded Do you have trouble paying f or utilities (for example, heat, electricity, water, phone)? 1 04/10/2025 Comments No Sex and Gender Information Value Date Recorded Sex Assigned at Not on file Legal Sex Female 5:26 AM [employer] Gender Identity Not on file Sexual Orientation [...] Sign Reading Time Taken Comments Blood Pressure 109/56 04/10/2025 11:05 AM CDT Pulse 68 04/10/2025 11:05 AM CDT Temperature 36.6 C (97.8 F) 01/20/2023 12:00 PM CDT Respiratory Rate 16 01/20/2023 12:0 0 PM CDT Oxygen Saturation 96% 04/10/2025 11: 05 AM CDT Inhaled Oxygen Concentration - - Weight 88.8 kg (195 lb 12.8 oz) 025 11:05 AM CDT Height 149.5 cm (4' 10.86) 04/10/2025 11:05 AM CDT Body Mass Index 39.74 04/10/2025 11:05 AM CDT Plan of Treatment Upcoming Encounters Date Type Department Care Team (Late st Contact Info) Description 10/08/2025 10:50 AM CDT Office Visit [facility] [address] [place] [address] Mikala Middleton MD [address] [place] [address] Health Maintenance Due Date Last Done Comments Hepatitis B series for 19+ ( 3 of 3 - 19+ 3-dose series) 06/05/2025 04/10/2025, 01/06/2005 BMI (ht and wt on same day) for age 18+ 04/10/2026 04/10/2025, 02/26/2025, 03/20/2024, Additional history exists Depression screening for age 12+ 04/10/2026 04/10/2025, 03/21/2024, 03/20/2024, Additional history exists Medicare Wellness for age 65+ 04/11/2026, 03/20/2024, 10/11/2022, Additional history exists Tetanus booster 12/22/2032 12/22/2022, 11/29, 01/12/2012, Additional history exists Hepatitis C screening for ag e 18-79 Completed 12/30/2004 Pneumococcal series for age 50+ Completed 4, 07/02/2013 Zoster (shingles) series for age 50+ Completed 08/26/2020, 04/16/2020, 01/05/2011 RSV vaccine for adults or Completed 08/02/2023 DEXA/DXA scan for age 65+ Completed 2023, 07/12/2016, 03/26/2009 COVID-19 vaccine series Completed 02/27/20, 05/17/2024, 05/11/2023, Additional history exists Influenza Vaccine Completed 04/10/2025, , 05/11/2023, Additional history exists Goals Goal Patient Goal Type Associated Problems Recent Progress Patient-Stated? Author BLOOD PRESSURE-MA INTAINS BP LESS THAN 130/80 Blood Pressure No Saadia Velazco NP Procedures Procedure Name Priority Date/Time Associated Diagnosis Comments HEMOGLOBIN A1C Routine 04/10/2025 12:10 PM CDT Prediabetes COMP METABOLIC PANEL Routine 04/10/2025 12:10 PM CDT HTN (hypertension) Diastolic dysfunction Hyponatremia SCAN-ULTRASOUND REPORT 03/04/2025 12:00 AM CDT SCAN-DIAGNOSTIC REPORT 02/25/2025 12:00 AM CDT XR DXA BONE DENSITY 2 SITES AXIAL Routine 03/27/2024 11:23 AM CDT Menopause ANTI HCV Timed 12/30/2004 1:54 PM CDT from Last 3 Months or Most Recently Relevant to Health Maintenance Results * HEMOGLOBIN A1C (04/10/2025 12:10 PM CDT) HEMOGLOBIN A1C 5.6 <5.7 % 04/11/2025 3:35 AM CDT [facility] Comment: For the purpose of screening for the presence of diabetes: <5.7% Consistent with the absence of diabetes 5.7-6.4% Consistent with increased risk for diabetes (prediabetes) > or =6.5% Consistent with diabetes This assay result is consistent with a decreased risk of diabetes. Currently, no consensus exists regarding use of hemoglobin A1c for diagnosis of diabetes in children. According to [place] Diabetes Association (ADA) guidelines, hemoglobin A1c <7.0% represents optimal control in non- diabetic patients. Different metrics may apply to specific patient populations. Standards of Medical Care in Diabetes(ADA). Blood BLOOD SPECIMEN / Unknown [facility] / Unknown 04/10/2025 12:10 PM CDT 04/10/2025 12:10 PM CDT us Mikala Middleton MD CHEMISTRY Final Resul t [facility] [address] [place] [address], * (ABNORMAL) COMP METABOLIC PANEL (04/10/2025 12:10 PM CDT) SODIUM 134(L) 135 - 146 mmol/L 04/11/2025 4:06 AM CDT [facility] POTASSIUM 4.8 3.5 - 5.3 mmol/L 04/11/2025 4:06 AM CDT [facility] CHLORIDE 95(L) 98 - 110 mmol/L 04/11/2025 4:06 AM CDT [facility] CARBON DIOXIDE 31 20 - 32 mmol/L 04/11/2025 4:06 AM CDT [facility] GLUCOSE 101(H) 65 - 99 mg/dL 04/11/2025 4:06 AM CDT [facility] Comment: Fasting reference interval For someone without known diabetes, a glucose value between 100 and 125 mg/dL is consistent with prediabetes and should be confirmed with a follow-up test. CALCIUM 9.7 8.6 - 10.4 mg/dL 04/11/2025 4:06 AM CDT [facility] CREATININE 1.01(H) 0.60 - 1.00 mg/dL 04/11/2025 4:06 AM CDT [facility] BUN/CREATININE RATIO 19 6 - 22 (calc) 04/11/2025 4:06 AM CDT [facility] EGFR 57(L) > OR = 60 mL/min/1. 73m2 04/11/2025 4:06 AM CDT [facility] ALBUMIN 4.5 3.6 - 5.1 g/dL 04/11/2025 4:06 AM CDT [facility] PROTEIN, TOTAL 7.1 6.1 - 8.1 g/dL 04/11/2025 4:06 AM CDT [facility] BILIRUBIN, TOTAL 0.8 0.2 - 1.2 mg/dL 04/11/2025 4:06 AM CDT [facility] ALKALINE PHOSPHATASE 58 37 - 153 U/L 04/11/2025 4:06 AM CDT [facility] ALT 20 6 - 29 U/L 04/11/2025 4:06 AM CDT [facility] AST 16 10 - 35 U/L 04/11/2025 4:06 AM CDT [facility] UREA NITROGEN (BUN) 19 7 - 25 mg/dL 04/11/2025 4:06 AM CDT [facility] GLOBULIN 2.6 1.9 - 3.7 g/dL (calc) 04/11/2025 4:06 AM CDT [facility] ALBUMIN/GLOBULIN RATIO 1.7 1.0 - 2.5 (calc) 04/11/2025 4:06 AM CDT [facility] Blood BLOOD SPECIMEN / Unknown [facility] / Unknown 04/10/2025 12:10 PM CDT 04/10/2025 12:10 PM CDT us Mikala Middleton MD CHEMISTRY Final Resul t [facility] [id number] [place] [address], * SCAN-ULTRASOUND REPORT (03/04/2025 12:00 AM CDT) Anatomical Region Laterality Modality Other us Scanner OTHER Final Result * SCAN-DIAGNOSTIC REPORT (02/25/2025 12:00 AM CDT) [...] recommended in 3-5 years. Nikki Cardozo PA-C Cost Effective Data [facility] 04/05/2024 Narrative 04/05/2024 4:18 PM CDT For Patients: Results are automatically released to your [employer] Data ([facility]) account once available, in compliance with federal regulations. This means that you may see your results before your provider has had a chance to review them. Please allow 2-3 business days for your provider to comment on the results. XR DXA Bone Mineral Density (BMD) EXAM LOCATION: [facility] [address] [facility] [address] PATIENT NAME: Ritika Monroe DATE OF : [...] two scanners are made by the same mantel craftsman. PROCEDURE: Dual-energy x-ray absorptiometry performed with routine [...] 1:54 PM CDT) ANTI HCV Non-reactiv e [facility] 12/30/2004 1:54 PM CDT 12/30/2004 10:58 PM CDT Narrative [facility] - 01/04/2005 11:07 AM CDT Testing Performed By [place], [place] us Erickson Mathew MD SEND OUTS Final Resu lt [facility] [address] [place] [address] from Last 3 Months or Most Recently Relevant to Health [place] [address] MEDICARE PART B HB ONLY MEDICARE PB ONLY [facility] Advance Directives * Full Code (Latest Code Status on File) Date Activated Date Inactivated Comments 01/19/2023 9:57 PM 01/20/2023 5:37 PM Question Answer Comments Code Status Discussion: Reviewed Preferences * Full Code Date Activated Date Inactivated Comments 03/11/2015 2:41 PM 03/13/2015 5:12 PM Care Teams Audit Senior Associate Relationship Specialty Start Date End Date Mikala Middleton MD [address] [place] [address] PCP - General Family Practice 08/27/18 Gareth Arroyo DDS [address] [facility] [address] [place] [address] Dentistry - General 07/02/13 Ruy Callahan MD Surgery - Orthopedic 07/12/16
--- NOTE | 2025-05-25 16:33 | CRLHL7_ITS ---
For Patients: As a result of the Century Cures Act, medical imaging exams and procedure reports are released immediately into your electronic medical record. You may view this report before your referring provider. If you have questions, please contact your health care provider. INDICATION: Left-sided hip pain COMPARISON: None. TECHNIQUE: Single view of the pelvis and two views of the left hip FINDINGS: No evident acute displaced fracture. Minimal to mild degenerative change of the hips. Moderate degenerative change of the left greater than right sacroiliac joint. Moderate degenerative change of the pubic symphysis. Partially imaged degenerative change in the lumbosacral spine. IMPRESSION: No acute osseous findings. Dictated by José Borges MD @ 05/25/2025 5:06:43 PM (Electronically Signed)
--- NOTE | 2025-05-25 16:34 | CRLHL7_ITS ---
For Patients: As a result of the Century Cures Act, medical imaging exams and procedure reports are released immediately into your electronic medical record. You may view this report before your referring provider. If you have questions, please contact your health care provider. Indication: LEFT SIDED ABDOMINAL PAIN MOSTLY IN BACK Technique: CT Abdomen/Pelvis CT A/P WITH ISOVUE 370 98CC intravenous contrast Please note that all CT scans at this facility use dose modulation, iterative reconstruction, and/or weight-based dosing when appropriate to reduce radiation dose to as low as reasonably achievable. Comparison: CT chest 08/12/2022 Findings: Chronic mild scarring in both lung bases. No pleural effusion. Sub cm cyst within the periphery of the right hepatic lobe. Spleen is normal. Small calcified gallstones are similar. Spleen is normal. Normal tapering of the common bile duct. Calcification within the splenic artery is similar. Atherosclerotic changes in the aorta without aneurysm. No adrenal nodule. No hydronephrosis. Varices are present within the left retroperitoneum. No venous clot. Uterus is absent. Bladder distended. No bowel obstruction, free air, free fluid or abscess. No evidence of colitis or enteritis. Few scattered 1 cm or less lymph nodes are noted. Multilevel degenerative disc disease with facet degeneration and degenerative alignment. Sigmoid diverticulosis. Impression: No bowel obstruction or acute inflammatory changes. Varices in the left side of the retroperitoneum without evidence of venous clot. A few scattered upper limits of normal lymph nodes are noted, nonspecific. Chronic cholelithiasis. Please note that all CT scans at this facility use dose modulation, iterative reconstruction, and/or weight-based dosing when appropriate to reduce radiation dose to as low as reasonably achievable. Dictated by Erickson Bernal MD @ 05/25/2025 6:32:02 PM (Electronically Signed)
[2025-05-25 16:38] LABS: Appearance Urine Clear (Clear)
--- NOTE | 2025-05-25 16:40 | ED.GENADULT ---
HPI - General Adult General Chief complaint: Flank Pain Stated complaint: L Lower back and abdominal pain, Time Seen by Provider: 05/25/25 16:09 Source: patient Mode of arrival: ambulatory Limitations: no limitations History of Present Illness HPI narrative: 75-year-old female coming in today complaining of left-sided abdominal, hip, back pain that started this morning. She states that she was in her usual state health when the pain all of a sudden started. She denies falling or any trauma to the area. When asked her to point to what area hurts she points to her flank, her entire left abdomen all the way down to her mid thigh. She denies nausea or vomiting. States that she has been eating normally today without difficulty. Last bowel movement was yesterday and was normal. She denies increased urinary frequency, urgency or dysuria. She denies any change in the color sent of her urine. No blood in her urine or stools. She states that walking makes the pain both stay the same and get worse. Nothing makes the pain better -it is there constantly no matter what she is doing. Related Data Home Medications ?Medication ?Instructions ?Recorded ?Confirmed atenolol 50 mg tablet 50 mg PO .COMPLEX 07/10/22 03/30/25 atorvastatin 10 mg tablet 10 mg PO DAILY 07/10/22 03/30/25 clopidogrel 75 mg tablet 75 mg PO QAM 07/10/22 03/30/25 lisinopril 20 mg tablet 20 mg PO DAILY 07/10/22 03/30/25 omeprazole 40 mg capsule,delayed 40 mg PO DAILY 07/10/22 03/30/25 release triamcinolone acetonide 0.1 % 1 applic topical BID PRN 07/10/22 03/30/25 topical cream Previous Rx's ?Medication ?Instructions ?Recorded albuterol sulfate 90 mcg/actuation 2 puff inhalation Q4-6H PRN 08/11/22 aerosol inhaler shortness of breath or wheezing #8.5 grams Lactobacillus acidophilus 0.5 mg 2 tab PO BID 30 days #120 tabs 08/17/22 (100 million cell) tablet sennosides 8.6 mg-docusate sodium 1 tab PO DAILY PRN 7 days #7 tabs 08/17/22 50 mg tablet (Stool Softener-Laxative) torsemide 20 mg tablet 40 mg (2 x 20 mg) PO DAILY@0800 30 08/17/22 days #60 tabs albuterol sulfate 90 mcg/actuation 2 puff inhalation Q4-6H PRN 08/10/24 aerosol inhaler shortness of breath or wheezing #6.7 grams prednisone 20 mg tablet See Rx Instructions PO QDAY #12 03/30/25 tabs Allergies Allergy/AdvReac Type Severity Reaction Status Date / Time adhesive tape Allergy Unknown Verified 03/30/25 11:09 ibuprofen Allergy Unknown Verified 03/30/25 11:09 meperidine (From Demerol) Allergy Unknown Verified 03/30/25 11:09 nickel Allergy Unknown Verified 03/30/25 11:09 oxycodone AdvReac Mild weird Verified 03/30/25 11:09 dreams hydrocodone AdvReac weird Verified 03/30/25 11:09 dreams Review of Systems Status of ROS: Reports: 10 or more systems reviewed and unremarkable except as noted in History and below [facility] Medical History Diastolic CHF ?I50.30 - Unspecified diastolic (congestive) heart failure (ICD-10) DVT (deep venous thrombosis) ?I82.409 - Acute embolism and thrombosis of unspecified deep veins of unspecified lower extremity (ICD-10) CVA (cerebral vascular accident) ?I63.9 - Cerebral infarction, unspecified (ICD-10) SELINA on CPAP ?G47.33 - Obstructive sleep apnea (adult) (pediatric) (ICD-10) ?Z99.89 - Dependence on other enabling machines and devices (ICD-10) Hearing loss, bilateral ?H91.93 - Unspecified hearing loss, bilateral (ICD-10) Carpal tunnel syndrome ?G56.00 - Carpal tunnel syndrome, unspecified upper limb (ICD-10) History of anemia ?Z86.2 - Personal history of diseases of the blood and blood-forming organs and certain disorders involving the immune mechanism (ICD-10) Hypertension ?I10 - Essential (primary) hypertension (ICD-10) Ischemic stroke ?I63.9 - Cerebral infarction, unspecified (ICD-10) Cystocele Chronic eczema ?L30.9 - Dermatitis, unspecified (ICD-10) Acute gastric ulcer ?K25.3 - Acute gastric ulcer without hemorrhage or perforation (ICD-10) Surgical History H/O vaginal hysterectomy ?Z90.710 - Acquired absence of both cervix and uterus (ICD-10) History of total replacement of left shoulder joint ?Z96.612 - Presence of left artificial shoulder joint (ICD-10) History of total left knee replacement ?Z96.652 - Presence of left artificial knee joint (ICD-10) Hx of appendectomy ?Z90.49 - Acquired absence of other specified parts of digestive tract (ICD-10) Social History Narrative: Patient lives with in [place], has 3 adult children. 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 She smoked from [id number]. She drinks 1 glass of wine every other day during the winter; 1 glass of beer every other day during the summer. Requests full code status. Highest level of school completed/degree received: high school graduate Smoking Status: Former smoker Do you use any of these nicotine containing products: None Second hand tobacco smoke exposure: No How often do you have a drink containing alcohol: 2-3 times a week Alcohol type: wine Alcohol type details: 1 glass 3 times a week How many standard drinks containing alcohol do you have on a typical day: 1 or 2 How often do you have six or more drinks on one occasion: Never AUDIT-C Alcohol total score: 3 Non-prescribed substance use: denies use Caffeine: Yes (coffee) service: No Exam Narrative: Exam Narrative: Overweight, well-developed patient groaning in pain. Alert and oriented x3. Cooperative. Patient speaks in full sentences without needing to catch her breath. HEENT: Normocephalic atraumatic. Pupils are equally round reactive to light. Extraocular muscles are intact. Conjunctivae are moist without any icterus noted. Moist mucous membranes. Posterior pharynx is normal. Neck is supple. Cardiovascular: Heart is regular rate and rhythm. Lungs: Clear to auscultation bilaterally. Patient takes deep breaths without any discomfort. Abdomen: Soft and nondistended with normal bowel sounds. No guarding or rebound tenderness. Patient cries in pain with gentle palpation anywhere on the left abdomen from underneath the ribs all the way down into the suprapubic region. Extremities: Bilateral lower extremities show trace edema. She has tenderness with flexion of the left hip and she has tenderness with passive range of motion of the left hip-to the point that she yells in pain. She has tenderness to palpation over the greater trochanter. Skin: Well perfused. Multiple scattered ecchymosis. Const: Vital Signs, click to edit/add: Vital Signs - 24 hr 05/25/25 16:25 05/25/25 18:16 05/25/25 18:18 Temperature 96.6 F L Pulse Rate 84 85 Pulse Rate [Pulse Oximeter] 64 Respiratory Rate 22 14 Blood Pressure 152/72 H Blood Pressure [Ri ght Upper Arm] 172/101 H Pulse Oximetry 97 93 94 Oxygen Delivery Me thod Room Air Room Air 05/25/25 18:18 05/25/25 18:30 05/25/25 18:53 Temperature Pulse Rate 88 88 90 Pulse Rate [Pulse Oximeter] Respiratory Rate 14 Blood Pressure 152/72 H Blood Pressure [Ri ght Upper Arm] Pulse Oximetry 94 92 Oxygen Delivery Me thod 05/25/25 18:59 05/25/25 19:00 Temperature Pulse Rate 86 85 Pulse Rate [Pulse Oximeter] Respiratory Rate 14 Blood Pressure 166/82 H Blood Pressure [Ri ght Upper Arm] Pulse Oximetry 90 89 Oxygen Delivery Me thod Room Air Course Course ED Course: Given the rather diffuse range of the area of her pain, a differential diagnoses is difficult to pinpoint at this time. Will consider renal stones, ischemic bowel, pyelonephritis, bowel obstruction, pancreatitis, hip arthritis, femoral fracture, trochanteric bursitis. IV is established and labs were drawn. I ordered an abdominal CT scan as well as x-rays of the hip. X-ray of the hip is unremarkable. UA is normal. Normal lactate. CBC unremarkable. Chemistry show a low sodium at 129. Normal lipase. Normal LFTs. Normal CRP. Normal procalcitonin. Abdominal CT scan does not show any obvious cause for her pain. She does have varices present within the left retroperitoneum. Proceeded with a thoracic spine CT which also did not show any acute findings. Patient received Dilaudid 0.2 mg IV x2 which did not alleviate her pain. Vital Signs Vital signs: Initial Vital Signs Temperature 96.6 F L 05/25/25 16:25 Temperature Source Temporal Artery Scan 05/25/25 16:25 Pulse Rate 64 05/25/25 16:25 Respiratory Rate 22 05/25/25 16:25 Blood Pressure 172/101 H 05/25/25 16:25 Blood Pressure Mean 124 H 05/25/25 16:25 Blood Pressure Position Sitting 05/25/25 16:25 Pulse Oximetry 97 05/25/25 16:25 Oxygen Delivery Method Room Air 05/25/25 16:25 Vital Signs Temperature 96.6 F L 05/25/25 16:25 Pulse Rate 64 05/25/25 16:25 Respiratory Rate 22 05/25/25 16:25 Blood Pressure 172/101 H 05/25/25 16:25 Pulse Oximetry 97 05/25/25 16:25 Oxygen Delivery Method Room Air 05/25/25 16:25 Temperature 96.6 F L 05/25/25 16:25 Pulse Rate 85 05/25/25 19:00 Respiratory Rate 14 05/25/25 18:59 Blood Pressure 166/82 H 05/25/25 18:59 Pulse Oximetry 89 05/25/25 19:00 Oxygen Delivery Method Room Air 05/25/25 18:59 Medications Administered Medications: Generic Name Dose Route Start Last Admin Trade Name Freq PRN Reason Stop Dose Admin Hydromorphone HCl 0.2 mg 05/25/25 18:38 05/25/25 18:56 Hydromorphone 0.5 Mg/0.5 Ml Inj IVP 05/25/25 18:39 0.2 mg ONCE ONE Administration Discontinued Medications Generic Name Dose Route Start Last Admin Trade Name Freq PRN Reason Stop Dose Admin Acetaminophen 500 mg 05/25/25 16:33 05/25/25 17:10 Acetaminophen 500 Mg Tablet PO 05/25/25 16:34 500 mg ONCE ONE Administration Hydromorphone HCl 0.2 mg 05/25/25 17:14 05/25/25 17:21 Hydromorphone 0.5 Mg/0.5 Ml Inj IVP 05/25/25 17:15 0.2 mg ONCE ONE Administration Sodium Chloride 500 mls @ 500 mls/hr 05/25/25 18:10 05/25/25 18:52 0.9 % Sodium Chloride 500 Ml IV 05/25/25 19:09 Infused .Q1H ONE Infusion Medical Decision Making MDM Narrative Medical decision making narrative: 75-year-old female with intractable pain of unclear etiology. Patient will be admitted for further management. Lab Data Lab results reviewed: Yes I reviewed the patient's lab results Labs: Lab Results 05/25/25 05/25/25 Range/Units 16:20 17:22 WBC 6.62 (4.50-11.00) K/uL RBC 4.36 (4.00-5.20) m/uL Hgb 13.1 (12.0-16.0) gm/dL Hct 39.5 (33.0-51.0) % MCV 91 (80-100) fL MCH 30 (26-34) pg MCHC 33 (32-36) gm/dL RDW Coeff of Zack 13.8 (11.5-15.5) % Plt Count 172 (140-440) K/uL Neut % (Auto) 74.2 H (42.0-72.0) % Lymph % (Auto) 15.3 L (20-44) % [place] % (Auto) 6.0 (0.0-11.0) % Eos % (Auto) 3.5 (0.0-7.0) % Baso % (Auto) 0.8 (0.0-3.0) % Neut # (Auto) 4.90 (1.7-7.0) K/uL Lymph # (Auto) 1.00 (0.90-2.90) K/uL Chaves # (Auto) 0.40 (0.00-0.90) K/UL Eos # (Auto) 0.23 (0.00-0.50) K/uL Baso # (Auto) 0.05 (0.00-0.30) K/uL Abs Immat Gran (auto) 0.01 (0.00-0.30) K/uL Imm/Tot Granulo (auto) 0.2 % Sodium 129 L (135-149) mmol/L Potassium 4.0 (3.6-5.1) mmol/L Chloride 92 L (96-114) mmol/L Carbon Dioxide 28 (20-32) mmol/L Anion Gap 9 (7-15) mEq/L BUN 25 (7-30) mg/dL Creatinine 0.9 (0.5-1.5) mg/dL Estimated Creat Clear 35.55 Estimated GFR 66 ml/min Glucose 156 H (60-115) mg/dL Lactate 1.1 (0.5-1.9) mmol/L Calcium 9.3 (8.4-10.6) mg/dL Magnesium 2.1 (1.5-2.6) mg/dL Total Bilirubin 0.5 (0.1-1.5) mg/dL Direct Bilirubin 0.2 (0.0-0.5) mg/dL AST 30 (12-35) U/L ALT 26 (4-35) U/L Alkaline Phosphatase 73 (40-150) U/L Troponin I 0.02 (0.01-0.04) ng/mL C-Reactive Protein < 0.5 L (0.5-1.0) mg/dL NT-Pro-B Natriuret Pep 1290 H (See Note) pg/mL Total Protein 7.4 (6.0-8.3) g/dL Albumin 4.5 (3.3-5.0) g/dL Lipase 117 (23-300) U/L Procalcitonin < 0.03 L (<0.50) ng/mL Urine Color Yellow (Yellow) Urine Appearance Clear (Clear) Urine pH 5.5 (5.0-8.5) Ur Specific [place] 1.015 (1.000-1.030) Urine Protein Negative (Negative) Urine Glucose (UA) Negative (Negative) Urine Ketones Negative (Negative) Urine Blood Negative (Negative) Urine Nitrite Negative (Negative) Urine Bilirubin Negative (Negative) Urine Urobilinogen 0.2 (0.2-1.0) Ur Leukocyte Esterase Negative (Negative) Urine RBC 0-2 (0-2) Urine WBC 0-2 (0-5) Ur Squamous Epith Cells Few (None-Few) Urine Bacteria None (None) Imaging Data Hip x-ray: Attestation: I have reviewed the pertinent imaging results. Radiologist's impression: TECHNIQUE: Single view of the pelvis and two views of the left hip FINDINGS: No evident acute displaced fracture. Minimal to mild degenerative change of the hips. Moderate degenerative change of the left greater than right sacroiliac joint. Moderate degenerative change of the pubic symphysis. Partially imaged degenerative change in the lumbosacral spine. IMPRESSION: No acute osseous findings. CT scan - abdomen: Attestation: I have reviewed the pertinent imaging results. Radiologist's impression: Technique: CT Abdomen/Pelvis CT A/P WITH ISOVUE 370 98CC intravenous contrast Please note that all CT scans at this facility use dose modulation, iterative reconstruction, and/or weight-based dosing when appropriate to reduce radiation dose to as low as reasonably achievable. Comparison: CT chest 08/12/2022 Findings: Chronic mild scarring in both lung bases. No pleural effusion. Sub cm cyst within the periphery of the right hepatic lobe. Spleen is normal. Small calcified gallstones are similar. Spleen is normal. Normal tapering of the common bile duct. Calcification within the splenic artery is similar. Atherosclerotic changes in the aorta without aneurysm. No adrenal nodule. No hydronephrosis. Varices are present within the left retroperitoneum. No venous clot. Uterus is absent. Bladder distended. No bowel obstruction, free air, free fluid or abscess. No evidence of colitis or enteritis. Few scattered 1 cm or less lymph nodes are noted. Multilevel degenerative disc disease with facet degeneration and degenerative alignment. Sigmoid diverticulosis. Impression: No bowel obstruction or acute inflammatory changes. Varices in the left side of the retroperitoneum without evidence of venous clot. A few scattered upper limits of normal lymph nodes are noted, nonspecific. Chronic cholelithiasis. CT thoracic spine: Attestation: I have reviewed the pertinent imaging results. Radiologist's impression: Technique: Noncontrast CT through the thoracic spine with multiplanar reformats Comparison: CTA chest performed 08/12/2022 Findings: Alignment: No acute malalignment appreciated. Slight rightward spinal curvature again noted. Bones: No acute fracture. No lytic or blastic lesion. Thoracic levels: No acute abnormality appreciated. Severe spondylosis involving essentially every level. There may be areas of cord flattening indentation, not well evaluated by this study, with no severe central stenosis suspected. Soft tissues: Interlobular septal thickening noted. Impression: 1. Severe multilevel spondylosis. No acute thoracic vertebral abnormality appreciated. 2. Partially visualized chest demonstrates interlobular septal thickening throughout the lungs, question volume overload/pulmonary edema. Discharge Plan Discharge Clinical Impression: Intractable abdominal pain, Intractable back pain Patient Disposition: Admitted As Observation Condition: Stable
[2025-05-25] MEDS: ACETAMINOPHEN 500 MG TABLET PO (17:10)
[2025-05-25 17:28] LABS: Lactate* 1.1 mmol/L (0.5-1.9)
[2025-05-25 17:30] LABS: Hematocrit* 39.5 % (33.0-51.0); Hemoglobin* 13.1 gm/dL (12.0-16.0); Immature Granulocytes Abs Auto 0.01 K/uL (0.00-0.30); Immature Granulocytes Pct Auto 0.2 %; Mean Corpuscular HGB Conc 33 gm/dL (32-36); Mean Corpuscular Hemoglobin 30 pg (26-34); Mean Corpuscular Volume 91 fL (80-100); RDW Coefficient of Variation % 13.8 % (11.5-15.5); Red Blood Count* 4.36 m/uL (4.00-5.20); White Blood Count* 6.62 K/uL (4.50-11.00)
[2025-05-25 17:35] LABS: Lymphocytes Absolute Auto 1.00 K/uL (0.90-2.90); Slide Review Reflex No
[2025-05-25 17:53] LABS: Albumin* 4.5 g/dL (3.3-5.0); Chloride* 92 mmol/L (96-114); Potassium* 4.0 mmol/L (3.6-5.1); Sodium* 129 mmol/L (135-149)
[2025-05-25 17:55] LABS: Blood Urea Nitrogen* 25 mg/dL (7-30); Creatinine* 0.9 mg/dL (0.5-1.5); Est. Creatinine Clearance* 35.55; Estimated Glomerular Filt Rate 66 ml/min
[2025-05-25 17:56] LABS: Alanine Aminotransferase* 26 U/L (4-35); Alkaline Phosphatase* 73 U/L (40-150); Anion Gap 9 mEq/L (7-15); Aspartate Amino Transferase* 30 U/L (12-35); Bilirubin Direct* 0.2 mg/dL (0.0-0.5); Bilirubin Total* 0.5 mg/dL (0.1-1.5); Calcium* 9.3 mg/dL (8.4-10.6); Carbon Dioxide* 28 mmol/L (20-32); Glucose* 156 mg/dL (60-115); Total Protein* 7.4 g/dL (6.0-8.3)
[2025-05-25] MEDS: 0.9 % SODIUM CHLORIDE 500 ML 500 ML IV (18:17)
[2025-05-25 18:18] LABS: NT Pro B Type NatriureticPept* 1290 pg/mL (See Note); Procalcitonin* < 0.03 ng/mL (<0.50)
--- NOTE | 2025-05-25 18:37 | CRLHL7_ITS ---
For Patients: As a result of the Century Cures Act, medical imaging exams and procedure reports are released immediately into your electronic medical record. You may view this report before your referring provider. If you have questions, please contact your health care provider. Indication: Severe back pain Technique: Noncontrast CT through the thoracic spine with multiplanar reformats Comparison: CTA chest performed 08/12/2022 Findings: Alignment: No acute malalignment appreciated. Slight rightward spinal curvature again noted. Bones: No acute fracture. No lytic or blastic lesion. Thoracic levels: No acute abnormality appreciated. Severe spondylosis involving essentially every level. There may be areas of cord flattening indentation, not well evaluated by this study, with no severe central stenosis suspected. Soft tissues: Interlobular septal thickening noted. Impression: 1. Severe multilevel spondylosis. No acute thoracic vertebral abnormality appreciated. 2. Partially visualized chest demonstrates interlobular septal thickening throughout the lungs, question volume overload/pulmonary edema. Please note that all CT scans at this facility use dose modulation, iterative reconstruction, and/or weight-based dosing when appropriate to reduce radiation dose to as low as reasonably achievable. Dictated by Tato Ruvalcaba MD @ 05/25/2025 7:11:43 PM (Electronically Signed)
--- NOTE | 2025-05-25 19:19 | CRLHL7_ITS ---
For Patients: As a result of the 21st Century Cures Act, medical imaging exams and procedure reports are released immediately into your electronic medical record. You may view this report before your referring provider. If you have questions, please contact your health care provider. INDICATION: Abdominal pain. TECHNIQUE: CTA abdomen and pelvis acquired without and with 95 cc Omnipaque 350 IV contrast. Multiplanar reformats performed including 3D MIP reconstructions. COMPARISON: CT abdomen and pelvis 05/25/2025. FINDINGS: Lower chest: Bibasilar atelectasis/scarring. Liver: Subcentimeter right hepatic hypodensity, too small to characterize on this exam but likely a cyst. No acute abnormality. Gallbladder and bile ducts: Cholelithiasis without CT evidence of acute cholecystitis. Pancreas: Unremarkable. Spleen: Unremarkable. Adrenal glands: Unremarkable. Kidneys: Subcentimeter left renal hypodensities too small to characterize on this exam but likely reflecting cysts. Symmetric renal enhancement. No hydronephrosis or hydroureter. No obstructing calculi. Bilateral ureters are patent throughout their course. GI tract: No bowel obstruction. Colonic diverticulosis without acute diverticulitis. No suspicious bowel wall thickening. Vasculature: Redemonstrated prominent left retroperitoneal venous vasculature without obvious thrombosis. Atherosclerotic calcification at the origin of the left renal artery with probable [id number] proximal stenosis. The renal arteries are patent throughout their course as are the celiac, superior mesenteric, and inferior mesenteric arteries. Bilateral common iliac, external iliac, and internal iliac arteries are also widely patent. No abdominal aortic aneurysm. Lymph nodes: Mildly prominent retroperitoneal lymph nodes. Peritoneum/Abdominal Wall: No ascites or pneumoperitoneum. No acute abdominal wall abnormality. Pelvis: Cystocele. No suspicious adnexal mass. Bones: No acute abnormality. IMPRESSION: 1. Redemonstrated prominent left retroperitoneal venous vasculature without obvious thrombosis appreciated. 2. Patent arterial vasculature with [id number] proximal stenosis of the left renal artery in setting of atherosclerotic disease. 3. Cholelithiasis without CT evidence of acute cholecystitis. 4. Scattered colonic diverticulosis without acute diverticulitis. 5. Mildly prominent retroperitoneal lymph nodes, nonspecific. Please note that all CT scans at this facility use dose modulation, iterative reconstruction, and/or weight-based dosing when appropriate to reduce radiation dose to as low as reasonably achievable. Dictated by Bernardo Lowe MD @ 05/25/2025 9:50:30 PM (Electronically Signed)
--- NOTE | 2025-05-25 19:50 | PM.IMHP1 ---
Assessment and Plan Assessment and plan (1) Intractable back pain: Problem comment: - pain primarily L flank with reassuring imaging of thoracic spine, ab/pelvis (CT and CTA) - only finding is prominent L retroperitoneal venous vasculature without obvious thrombosis - ddx: muscular, radicular, small renal stone, shingles - pain management with scheduled APAP, Lidocaine patch, prn low dose Oxycodone - will ask for PT evaluation on 05/26 Status: Acute (2) (HFpEF) heart failure with preserved ejection fraction: Problem comment: - last TTE 12/2022 with results below - on Atenolol (switching to Carvedilol when she finishes current bottle) and Torsemide as an outpatient Final Impressions: 1. Normal left ventricular size, normal wall thickness, normal global systolic function, calculated EF of 87 %. 2. Echo contrast was administered to enhance visualization of all left ventricular segments. 3. No pericardial effusion. 4. Right ventricular cavity size is normal, global systolic RV function is normal. 5. No significant valve disease detected. Status: Acute (3) Intractable abdominal pain: Problem comment: - pain primarily in back per above, abdominal exam reassuring upon arrival to the floor - regular diet Status: Acute (4) Hyponatremia: Problem comment: - mild, 129 - will add fluid restriction and follow Status: Acute Plan - per above - Lovenox for ppx Hospitalist- H&P: HPI History of Present Illness Date Seen: 05/25/25 Chief complaint: L Lower back and abdominal pain, Narrative: Ritika Monroe is a 75 year old female who presented to the ER this evening for L sided abdominal/back pain that started abruptly this morning. No associated nausea or GERD. No constipation, no dysuria or urinary frequency, no hematuria. No recent travel, no recent surgeries. Had 2 glasses of wine last night, no significant dietary changes recently. 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 Upon arrival to the floor, pain has improved. CT angiogram ordered which demonstrated [id number] proximal stenosis of L renal artery, no thrombosis. Histories and medications reviewed and updated below; PCP is Dr. Middleton at the [facility] and she recently had her AWV. Review of Systems Status of ROS: Reports: 10 or more systems reviewed and unremarkable except as noted in History and below Narrative: - history of DVT during in the 1980s Medical Decision Making Medical Decision Making Code Status: Full Has patient completed a Health Care Directive: No During This Stay, Who Would You Like To Make Decisions For You In The Event You Are Unable To Make Them For Yourself?: [facility] Medical History (Updated 05/25/25 @ 22:08 by Selena Cook MD) Non-ST elevation myocardial infarction (NSTEMI) ?I21.4 - Non-ST elevation (NSTEMI) myocardial infarction (ICD-10) (HFpEF) heart failure with preserved ejection fraction ?I50.30 - Unspecified diastolic (congestive) heart failure (ICD-10) DVT (deep venous thrombosis) ?I82.409 - Acute embolism and thrombosis of unspecified deep veins of unspecified lower extremity (ICD-10) CVA (cerebral vascular accident) ?I63.9 - Cerebral infarction, unspecified (ICD-10) SELINA on CPAP ?G47.33 - Obstructive sleep apnea (adult) (pediatric) (ICD-10) ?Z99.89 - Dependence on other enabling machines and devices (ICD-10) Hearing loss, bilateral ?H91.93 - Unspecified hearing loss, bilateral (ICD-10) Carpal tunnel syndrome ?G56.00 - Carpal tunnel syndrome, unspecified upper limb (ICD-10) History of anemia ?Z86.2 - Personal history of diseases of the blood and blood-forming organs and certain disorders involving the immune mechanism (ICD-10) Hypertension ?I10 - Essential (primary) hypertension (ICD-10) Ischemic stroke ?I63.9 - Cerebral infarction, unspecified (ICD-10) Cystocele Chronic eczema ?L30.9 - Dermatitis, unspecified (ICD-10) Acute gastric ulcer ?K25.3 - Acute gastric ulcer without hemorrhage or perforation (ICD-10) Surgical History H/O vaginal hysterectomy ?Z90.710 - Acquired absence of both cervix and uterus (ICD-10) History of total replacement of left shoulder joint ?Z96.612 - Presence of left artificial shoulder joint (ICD-10) History of total left knee replacement ?Z96.652 - Presence of left artificial knee joint (ICD-10) Hx of appendectomy ?Z90.49 - Acquired absence of other specified parts of digestive tract (ICD-10) Social History (Updated 05/25/25 @ 22:05 by Selena Cook MD) Narrative: Patient lives with in [place], has 3 adult children. 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 She smoked from [id number]. She drinks wine and beer, no daily ETOH use. Requests full code status. What is your current living situation?: I presently have a place to live Problems where you live: no known problems Problems where you live details: N/A In the past 12 months, utilities in danger of being shut off: no In past 12 months, lack of transportation kept you from medical appts, meetings, work, or getting things needed for daily living: no In the past 12 mos, have been you worried that your food would run out before you had money to buy more?: never true In the past 12 mos, the food you bought just didn't last and you didn't have money to buy more?: never true Highest level of school completed/degree received: high school graduate Smoking Status: Former smoker Do you use any of these nicotine containing products: None Second hand tobacco smoke exposure: No How often do you have a drink containing alcohol: 2-3 times a week Alcohol type: wine Alcohol type details: 1 glass 3 times a week How many standard drinks containing alcohol do you have on a typical day: 1 or 2 How often do you have six or more drinks on one occasion: Never AUDIT-C Alcohol total score: 3 Non-prescribed substance use: denies use Caffeine: Yes (coffee) How often does anyone, including family, friends and others, physically hurt you: never How often does anyone, including family, friends and others, insult or talk down to you: never How often does anyone, including family, friends and others, threaten you with harm: never How often does anyone, including family, friends and others, scream or curse at you: never service: No Meds Home Medications and Allergies Home Medications ?Medication ?Instructions ?Recorded ?Confirmed ?Type atenolol 50 mg tablet 25 mg PO Q12H 12/11/22 10/26/25 History atorvastatin 10 mg tablet 10 mg PO DAILY 07/10/22 05/25/25 History clopidogrel 75 mg tablet 75 mg PO QAM 07/10/22 05/25/25 History lisinopril 20 mg tablet 20 mg PO DAILY 07/10/22 05/25/25 History omeprazole 40 mg capsule,delayed 40 mg PO DAILY 07/10/22 05/25/25 History release triamcinolone acetonide 0.1 % 1 applic topical BID PRN 07/10/22 05/25/25 History topical cream albuterol sulfate 90 mcg/actuation 2 puff inhalation Q4-6H PRN 08/11/22 05/25/25 Rx aerosol inhaler shortness of breath or wheezing #8.5 grams albuterol sulfate 90 mcg/actuation 2 puff inhalation Q4-6H PRN 08/10/24 05/25/25 Rx aerosol inhaler shortness of breath or wheezing #6.7 grams carvedilol 3.125 mg tablet 3.125 mg PO BID 05/25/25 05/25/25 History lisinopril 5 mg tablet 5 mg PO DAILY 05/25/25 05/25/25 History torsemide 20 mg tablet 20 mg PO DAILY@0800 05/25/25 05/25/25 History Home Medication Comments: Recently seen for AWV; Atenolol was changed to Carvedilol (but finishing her current bottle of Atenolol before making the transition). Takes 20mg of Torsemide daily; occasionally increases this to 40mg based on daily weight. Allergies Allergy/AdvReac Type Severity Reaction Status Date / Time adhesive tape Allergy Unknown Verified 03/30/25 11:09 ibuprofen Allergy Unknown Verified 03/30/25 11:09 meperidine (From Demerol) Allergy Unknown Verified 03/30/25 11:09 nickel Allergy Unknown Verified 03/30/25 11:09 oxycodone AdvReac Mild weird Verified 03/30/25 11:09 dreams hydrocodone AdvReac weird Verified 03/30/25 11:09 dreams Exam Narrative: Exam Narrative: GEN: Alert and laying in bed, mildly uncomfortable. Speaking in full sentences and answering questions appropriately HEENT: Normal external ears, EOMIs bilaterally, no scleral icterus CV: RRR, no murmurs R: LCTA bilaterally, no wheezing Ab: Soft, nondistended. Tolerates palpation, no rebound or guarding. No CVA ttp. Ext: wwp, no pitting edema Skin: Scattered bruising on extremities, baseline. No skin changes over area of discomfort MS: Able to flex and externally rotate hip with mild discomfort. Ambulates in room with a cane Neuro: Nonfocal Psych: Appropriate Const: Vital Signs, click to edit/add: Vital Signs - 24 hr 05/25/25 16:25 05/25/25 18:16 05/25/25 18:18 Temperature 96.6 F L Pulse Rate 84 85 Pulse Rate [Pulse Oximeter] 64 Respiratory Rate 22 14 Blood Pressure 152/72 H Blood Pressure [Ri ght Upper Arm] 172/101 H Pulse Oximetry 97 93 94 Oxygen Delivery Me thod Room Air Room Air 05/25/25 18:18 05/25/25 18:30 05/25/25 18:53 Temperature Pulse Rate 88 88 90 Pulse Rate [Pulse Oximeter] Respiratory Rate 14 Blood Pressure 152/72 H Blood Pressure [Ri ght Upper Arm] Pulse Oximetry 94 92 Oxygen Delivery Me thod 05/25/25 18:59 05/25/25 19:00 Temperature Pulse Rate 86 85 Pulse Rate [Pulse Oximeter] Respiratory Rate 14 Blood Pressure 166/82 H Blood Pressure [Ri ght Upper Arm] Pulse Oximetry 90 89 Oxygen Delivery Me thod Room Air Hospitalist - H&P: Result Labs Labs: Short CBC 05/25/25 Range/Units 17:22 WBC 6.62 (4.50-11.00) K/uL Hgb 13.1 (12.0-16.0) gm/dL Hct 39.5 (33.0-51.0) % Plt Count 172 (140-440) K/uL BMP 05/25/25 17:22 Sodium 129 L Potassium 4.0 Chloride 92 L Carbon Dioxide 28 BUN 25 Creatinine 0.9 Glucose 156 H Calcium 9.3 Cardiac Enzymes 05/25/25 Range/Units 17:22 Troponin I 0.02 (0.01-0.04) ng/mL Liver Function 05/25/25 Range/Units 17:22 Total Bilirubin 0.5 (0.1-1.5) mg/dL Direct Bilirubin 0.2 (0.0-0.5) mg/dL AST 30 (12-35) U/L ALT 26 (4-35) U/L Alkaline Phosphatase 73 (40-150) U/L Albumin 4.5 (3.3-5.0) g/dL Urine 05/25/25 Range/Units 16:20 Urine Color Yellow (Yellow) Urine Appearance Clear (Clear) Urine pH 5.5 (5.0-8.5) Ur Specific [place] 1.015 (1.000-1.030) Urine Protein Negative (Negative) Urine Glucose (UA) Negative (Negative)
[2025-05-25] MEDS: LIDOCAINE 5% PATCH 1 PATCH TRANSDERMA (22:12)
[2025-05-25] MEDS: ACETAMINOPHEN 325 MG TABLET 975 MG PO (22:14)
[2025-05-25] MEDS: ENOXAPARIN 40 MG/0.4 ML INJ SUBCUT (22:24)
[2025-05-26 02:44] VITALS: BP 179/79; PULSE 70; RESP 16; TEMP 36.6; O2SAT 96
--- NOTE | 2025-05-26 04:34 | PC.NURSE ---
Shift note: Patient was brought to the floor at 2019 from ED on stretcher. Conscious, alert and oriented. Presented with abdominal pain without N/V. Patient was able stand on the scale for weight, assisted to bed with cane and A1. Bp was elevated on admission and remained elevated for the rest of the shift. Oriented to room and call light. Takes pill whole. Patient used CPAP for sleep. Had adequate sleep. Takes pills whole with water.
[2025-05-26 07:00] VITALS: BP 147/68; PULSE 68; RESP 20; TEMP 36.7; O2SAT 94
[2025-05-26 07:02] LABS: Hematocrit* 35.0 % (33.0-51.0); Hemoglobin* 11.6 gm/dL (12.0-16.0); Immature Granulocytes Abs Auto 0.01 K/uL (0.00-0.30); Immature Granulocytes Pct Auto 0.2 %; Lymphocytes Absolute Auto 1.29 K/uL (0.90-2.90); Mean Corpuscular HGB Conc 33 gm/dL (32-36); Mean Corpuscular Hemoglobin 30 pg (26-34); Mean Corpuscular Volume 91 fL (80-100); RDW Coefficient of Variation % 14.1 % (11.5-15.5); Red Blood Count* 3.85 m/uL (4.00-5.20); White Blood Count* 5.40 K/uL (4.50-11.00)
[2025-05-26 07:05] LABS: Slide Review Reflex No
[2025-05-26 07:16] LABS: Chloride* 100 mmol/L (96-114); Potassium* 3.6 mmol/L (3.6-5.1); Sodium* 133 mmol/L (135-149)
[2025-05-26 07:19] LABS: Anion Gap 10 mEq/L (7-15); Blood Urea Nitrogen* 18 mg/dL (7-30); Calcium* 9.0 mg/dL (8.4-10.6); Carbon Dioxide* 23 mmol/L (20-32); Creatinine* 0.7 mg/dL (0.5-1.5); Est. Creatinine Clearance* 35.55; Estimated Glomerular Filt Rate 89 ml/min; Glucose* 97 mg/dL (60-115)
[2025-05-26] MEDS: ACETAMINOPHEN 325 MG TABLET 975 MG PO (09:04)
[2025-05-26] MEDS: TORSEMIDE 20 MG TABLET PO (09:05)
[2025-05-26] MEDS: OMEPRAZOLE 20 MG CAPSULE DR 40 MG PO (09:05)
[2025-05-26] MEDS: SODIUM CHLORIDE 0.9 % (FLUSH) 10 ML SYRINGE 5 ML IVF (09:05)
[2025-05-26] MEDS: CLOPIDOGREL 75 MG TABLET PO (09:05)
[2025-05-26] MEDS: ATORVASTATIN CALCIUM 10 MG TABLET PO (09:05)
--- NOTE | 2025-05-26 10:25 | P.DS_ITS ---
DS: Providers Provider Time Seen by Provider: 09:20 Date Seen: 05/26/25 Date of admission: 05/25/25 20:26 Primary care physician: Mikala Middleton MD Admitting Clinician: Selena Cook MD Consults: 05/25/25 21:08 Consult to Physical Therapy [CONS] Routine Comment: Reason(s) for PT Consult:: Evaluate and Treat Any Restrictions?:: No Restrictions Comment: L flank/hip pain 05/25/25 22:09 Consult to Field Party Manager [CONS] Routine Comment: may need HH vs other vs home with Reason for Consult:: Discharge Planning Needs Attending Physician on discharge: Kimberli Duval MD Date of Discharge: 05/26/25 DS: Diagnosis Discharge Diagnosis (1) Intractable back pain: Status: Acute Problem details: - pain primarily L flank with reassuring imaging of thoracic spine, ab/pelvis (CT and CTA) - only finding is prominent L retroperitoneal venous vasculature without obvious thrombosis - ddx: muscular, radicular, small renal stone, shingles - pain management with scheduled APAP, Lidocaine patch, prn low dose Oxycodone - will ask for PT evaluation on 05/26 - 05/26 Ritika is moving well independently. She had no pain this morning until after working with therapy. She declines oxycodone or any other narcotic for pain. She says she cannot take aspirin or ibuprofen because she might develop an ulcer. She is agreeable to ice and heat as needed, acetaminophen and agrees to use her walker at home. PT evaluated and recommended using a walker and to have one on both floors of her home. (2) Intractable abdominal pain: Status: Acute Problem details: - pain primarily in back per above, abdominal exam reassuring upon arrival to the floor - CT abdomen/pelvis reassuring (repeat reassuring for no obvious thrombus) - regular diet (3) Hyponatremia: Status: Acute Problem details: - mild, 129 - will add fluid restriction and follow - 05/26 Na up to 133 today (4) (HFpEF) heart failure with preserved ejection fraction: Status: Acute Problem details: - last TTE 12/2022 with results below - on Atenolol (switching to Carvedilol when she finishes current bottle) and Torsemide as an outpatient Final Impressions: 1. Normal left ventricular size, normal wall thickness, normal global systolic function, calculated EF of 87 %. 2. Echo contrast was administered to enhance visualization of all left ventricular segments. 3. No pericardial effusion. 4. Right ventricular cavity size is normal, global systolic RV function is normal. 5. No significant valve disease detected. - 05/26 possible mild exacerbation. Patient states she weighs herself daily at home and takes 2 tablets of furosemide if her weight goes up. She had to do that on Monday, but back to her normal weight Monday and Monday. I note on her thoracic spine CT that she has interlobular septal thickening throughout the lungs, possible volume overload or pulmonary edema. She denies shortness of breath and she has not had any hypoxia tachypnea here. Her lungs are clear on exam today. I have asked her to take 40 mg of torsemide for the next 3 days and then resume her normal dose and to follow-up with her primary care provider later this week or early next. She demonstrated understanding of this plan. DS: Summary Hospital Course Hospital Course: Per H&P: Ritika Monroe is a 75 year old female who presented to the ER this evening for L sided abdominal/back pain that started abruptly this morning. No associated nausea or GERD. No constipation, no dysuria or urinary frequency, no hematuria. No recent travel, no recent surgeries. Had 2 glasses of wine last night, no significant dietary changes recently. 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 Upon arrival to the floor, pain has improved. CT angiogram ordered which demonstrated [id number] proximal stenosis of L renal artery, no thrombosis. Patient was pain-free this morning and able to ambulate independently in her room. She also ambulated with a cane and walker during physical therapy evaluation and did well. After therapy she did have some back pain for which she used ice and acetaminophen, lidocaine patch, refused to take oxycodone or any other narcotic medication. We explored other options such as NSAIDs, however patient states fearing potential ulcer from those. Please see diagnoses above for further details. Patient is discharged home in improved and stable condition. Time Spent with Patient Time attestation: Total time spent providing and/or coordinating discharge services: Today I spent 40 minutes seeing and discharging the patient, reviewing [facility] and EPIC notes/diagnostics/labs, discussing the care plan with our care team that includes social work, PT/OT, pharmacy, RT, care home and documenting my impressions and plan in the medical record. Exam Narrative: Exam Narrative: General: No acute distress. Awake, alert, oriented x3. No pallor. No jaundice. Oropharynx: Clear. Mucous membranes moist. Cardiovascular: Regular rate and rhythm. No murmurs, gallops, or rubs. Respiratory: Clear to auscultation bilaterally. No wheezes or crackles. Abdomen: Bowel sounds present. Soft, nondistended, mild L flank tenderness, no rebound tenderness or guarding. Back is mildly tender to palpation around the left low back and buttock, no bruising, no point tenderness. Extremities: No lower extremity edema. Const: Vital Signs, click to edit/add: Vital Signs - 24 hr 05/25/25 16:25 05/25/25 18:16 05/25/25 18:18 Temperature 96.6 F L Pulse Rate 84 85 Pulse Rate [Left P ulse Oximeter] Pulse Rate [Pulse Oximeter] 64 Respiratory Rate 22 14 Blood Pressure 152/72 H Blood Pressure [Le ft Arm] Blood Pressure [Ri ght Upper Arm] 172/101 H Pulse Oximetry 97 93 94 Oxygen Delivery Me thod Room Air Room Air 05/25/25 18:18 05/25/25 18:30 05/25/25 18:53 Temperature Pulse Rate 88 88 90 Pulse Rate [Left P ulse Oximeter] Pulse Rate [Pulse Oximeter] Respiratory Rate 14 Blood Pressure 152/72 H Blood Pressure [Le ft Arm] Blood Pressure [Ri ght Upper Arm] Pulse Oximetry 94 92 Oxygen Delivery Me thod 05/25/25 18:59 05/25/25 19:00 05/25/25 20:05 Temperature Pulse Rate 86 85 90 Pulse Rate [Left P ulse Oximeter] Pulse Rate [Pulse Oximeter] Respiratory Rate 14 16 Blood Pressure 166/82 H Blood Pressure [Le ft Arm] Blood Pressure [Ri ght Upper Arm] Pulse Oximetry 90 89 93 Oxygen Delivery Me thod Room Air Room Air 05/25/25 20:34 05/25/25 20:34 05/25/25 22:33 Temperature 97.9 F Pulse Rate Pulse Rate [Left P ulse Oximeter] 90 83 Pulse Rate [Pulse Oximeter] Respiratory Rate 16 16 16 Blood Pressure Blood Pressure [Le ft Arm] 159/76 H Blood Pressure [Ri ght Upper Arm] Pulse Oximetry 99 99 Oxygen Delivery Me thod Room Air Room Air 05/25/25 22:33 05/26/25 02:44 05/26/25 07:00 Temperature 98 F 97.8 F 98.0 F Pulse Rate Pulse Rate [Left P ulse Oximeter] 83 70 68 Pulse Rate [Pulse Oximeter] Respiratory Rate 16 16 20 Blood Pressure Blood Pressure [Le ft Arm] 152/75 H 179/79 H 147/68 H Blood Pressure [Ri ght Upper Arm] Pulse Oximetry 95 96 94 Oxygen Delivery Me thod Room Air Room Air Room Air DS: Data Data Completed and Pending Labs on day of discharge: Labs from last 24 hours 05/26/25 05/25/25 05/25/25 06:05 17:22 16:20 WBC 5.40 6.62 RBC 3.85 L 4.36 Hgb 11.6 L 13.1 Hct 35.0 39.5 MCV 91 91 MCH 30 30 MCHC 33 33 RDW Coeff of Zack 14.1 13.8 Plt Count 163 172 Neut % (Auto) 60.4 74.2 H Lymph % (Auto) 23.9 15.3 L [facility] % (Auto) 8.0 6.0 Eos % (Auto) 6.9 3.5 Baso % (Auto) 0.6 0.8 Neut # (Auto) 3.27 4.90 Lymph # (Auto) 1.29 1.00 [facility] # (Auto) 0.40 0.40 Eos # (Auto) 0.37 0.23 Baso # (Auto) 0.03 0.05 Abs Immat Gran (auto) 0.01 0.01 Imm/Tot Granulo (auto) 0.2 0.2 Sodium 133 L 129 L Potassium 3.6 4.0 Chloride 100 92 L Carbon Dioxide 23 28 Anion Gap 10 9 BUN 18 25 Creatinine 0.7 0.9 Estimated Creat Clear 35.55 35.55 Estimated GFR 89 66 Glucose 97 156 H Lactate 1.1 Calcium 9.0 9.3 Magnesium 2.1 Total Bilirubin 0.5 Direct Bilirubin 0.2 AST 30 ALT 26 Alkaline Phosphatase 73 Troponin I 0.02 C-Reactive Protein < 0.5 L NT-Pro-B Natriuret Pep 1290 H Total Protein 7.4 Albumin 4.5 Lipase 117 Procalcitonin < 0.03 L Urine Color Yellow Urine Appearance Clear Urine pH 5.5 Ur Specific [place] 1.015 Urine Protein Negative Urine Glucose (UA) Negative Urine Ketones Negative Urine Blood Negative Urine Nitrite Negative Urine Bilirubin Negative Urine Urobilinogen 0.2 Ur Leukocyte Esterase Negative Urine RBC 0-2 Urine WBC 0-2 Ur Squamous Epith Cells Few Urine Bacteria None Preliminary micro results at discharge 05/25/25 16:35 Urine Culture - Preliminary Urine,Clean Catch Culture in Progress Ordering Physician: Selena Cook M.D. Date of Service: 05/25/25 Procedure(s): CT angio abd pel Renal Artery Accession Number(s): [id number] cc: Selena Cook M.D.; Mikala Middleton M.D.~ For Patients: As a result of the Cures Act, medical imaging exams and procedure reports are released immediately into your electronic medical record. You may view this report before your referring provider. If you have questions, please contact your health care provider. INDICATION: Abdominal pain. TECHNIQUE: CTA abdomen and pelvis acquired without and with 95 cc Omnipaque 350 IV contrast. Multiplanar reformats performed including 3D MIP reconstructions. COMPARISON: CT abdomen and pelvis 05/25/2025. FINDINGS: Lower chest: Bibasilar atelectasis/scarring. Liver: Subcentimeter right hepatic hypodensity, too small to characterize on this exam but likely a cyst. No acute abnormality. Gallbladder and bile ducts: Cholelithiasis without CT evidence of acute cholecystitis. Pancreas: Unremarkable. Spleen: Unremarkable. Adrenal glands: Unremarkable. Kidneys: Subcentimeter left renal hypodensities too small to characterize on this exam but likely reflecting cysts. Symmetric renal enhancement. No hydronephrosis or hydroureter. No obstructing calculi. Bilateral ureters are patent throughout their course. GI tract: No bowel obstruction. Colonic diverticulosis without acute diverticulitis. No suspicious bowel wall thickening. Vasculature: Redemonstrated prominent left retroperitoneal venous vasculature without obvious thrombosis. Atherosclerotic calcification at the origin of the left renal artery with probable [id number] proximal stenosis. The renal arteries are patent throughout their course as are the celiac, superior mesenteric, and inferior mesenteric arteries. Bilateral common iliac, external iliac, and internal iliac arteries are also widely patent. No abdominal aortic aneurysm. Lymph nodes: Mildly prominent retroperitoneal lymph nodes. Peritoneum/Abdominal Wall: No ascites or pneumoperitoneum. No acute abdominal wall abnormality. Pelvis: Cystocele. No suspicious adnexal mass. Bones: No acute abnormality. IMPRESSION: 1. Redemonstrated prominent left retroperitoneal venous vasculature without obvious thrombosis appreciated. 2. Patent arterial vasculature with [id number] proximal stenosis of the left renal artery in setting of atherosclerotic disease. 3. Cholelithiasis without CT evidence of acute cholecystitis. 4. Scattered colonic diverticulosis without acute diverticulitis. 5. Mildly prominent retroperitoneal lymph nodes, nonspecific. Please note that all CT scans at this facility use dose modulation, iterative reconstruction, and/or weight-based dosing when appropriate to reduce radiation dose to as low as reasonably achievable. Dictated by Bernardo Lowe MD @ 05/25/2025 9:50:30 PM (Electronically Signed) Ordering Physician: Katie Moreno M.D. Date of Service: 05/25/25 Procedure(s): CT thoracic spine wo con Accession Number(s): [id number] cc: Katie Moreno M.D.; Mikala Middleton M.D.~ For Patients: As a result of the Cures Act, medical imaging exams and procedure reports are released immediately into your electronic medical record. You may view this report before your referring provider. If you have questions, please contact your health care provider. Indication: Severe back pain Technique: Noncontrast CT through the thoracic spine with multiplanar reformats Comparison: CTA chest performed 08/12/2022 Findings: Alignment: No acute malalignment appreciated. Slight rightward spinal curvature again noted. Bones: No acute fracture. No lytic or blastic lesion. Thoracic levels: No acute abnormality appreciated. Severe spondylosis involving essentially every level. There may be areas of cord flattening indentation, not well evaluated by this study, with no severe central stenosis suspected. Soft tissues: Interlobular septal thickening noted. Impression: 1. Severe multilevel spondylosis. No acute thoracic vertebral abnormality appreciated. 2. Partially visualized chest demonstrates interlobular septal thickening throughout the lungs, question volume overload/pulmonary edema. Please note that all CT scans at this facility use dose modulation, iterative reconstruction, and/or weight-based dosing when appropriate to reduce radiation dose to as low as reasonably achievable. Dictated by Tato Ruvalcaba MD @ 05/25/2025 7:11:43 PM (Electronically Signed) Ordering Physician: Katie Moreno M.D. Date of Service: 05/25/25 Procedure(s): CT abdomen pelvis w con Accession Number(s): [id number] cc: Katie Moreno M.D.; Mikala Middleton M.D.~ For Patients: As a result of the Cures Act, medical imaging exams and procedure reports are released immediately into your electronic medical record. You may view this report before your referring provider. If you have questions, please contact your health care provider. Indication: LEFT SIDED ABDOMINAL PAIN MOSTLY IN BACK Technique: CT Abdomen/Pelvis CT A/P WITH ISOVUE 370 98CC intravenous contrast Please note that all CT scans at this facility use dose modulation, iterative reconstruction, and/or weight-based dosing when appropriate to reduce radiation dose to as low as reasonably achievable. Comparison: CT chest 08/12/2022 Findings: Chronic mild scarring in both lung bases. No pleural effusion. Sub cm cyst within the periphery of the right hepatic lobe. Spleen is normal. Small calcified gallstones are similar. Spleen is normal. Normal tapering of the common bile duct. Calcification within the splenic artery is similar. Atherosclerotic changes in the aorta without aneurysm. No adrenal nodule. No hydronephrosis. Varices are present within the left retroperitoneum. No venous clot. Uterus is absent. Bladder distended. No bowel obstruction, free air, free fluid or abscess. No evidence of colitis or enteritis. Few scattered 1 cm or less lymph nodes are noted. Multilevel degenerative disc disease with facet degeneration and degenerative alignment. Sigmoid diverticulosis. Impression: No bowel obstruction or acute inflammatory changes. Varices in the left side of the retroperitoneum without evidence of venous clot. A few scattered upper limits of normal lymph nodes are noted, nonspecific. Chronic cholelithiasis. Please note that all CT scans at this facility use dose modulation, iterative reconstruction, and/or weight-based dosing when appropriate to reduce radiation dose to as low as reasonably achievable. Dictated by Erickson Bernal MD @ 05/25/2025 6:32:02 PM (Electronically Signed) Ordering Physician: Katie Moreno M.D. Date of Service: 05/25/25 Procedure(s): XR hip LT min 2V Accession Number(s): [id number] cc: Katie Moreno M.D.; Mikala Middleton M.D.~ For Patients: As a result of the Cures Act, medical imaging exams and procedure reports are released immediately into your electronic medical record. You may view this report before your referring provider. If you have questions, please contact your health care provider. INDICATION: Left-sided hip pain COMPARISON: None. TECHNIQUE: Single view of the pelvis and two views of the left hip FINDINGS: No evident acute displaced fracture. Minimal to mild degenerative change of the hips. Moderate degenerative change of the left greater than right sacroiliac joint. Moderate degenerative change of the pubic symphysis. Partially imaged degenerative change in the lumbosacral spine. IMPRESSION: No acute osseous findings. Dictated by José Borges MD @ 05/25/2025 5:06:43 PM (Electronically Signed) Discharge Plan Discharge Disposition: Home, Self-Care Date of Admission: 05/25/25 20:26 Attending Provider on Discharge: Kimberli Duval Primary Care Provider: Mikala Middleton Condition: Stable Anticipated Discharge Date/Time: 05/26/25 10:31 Discharge Medications: New lidocaine 5 % Adhesive Patch,Medicated 1 patch transdermal Q24H Qty: 30 0RF Continued albuterol sulfate 90 mcg/actuation HFA aerosol inhaler 2 puff inhalation Q4-6H PRN (Reason: shortness of breath or wheezing) Qty: 6.7 0RF triamcinolone acetonide 0.1 % cream 1 applic topical BID PRN Patient Comments: APPLY TOPICALLY TO THE AFFECTED AREA TWICE DAILY NEEDED FOR RASH atorvastatin 10 mg tablet 10 mg PO DAILY omeprazole 40 mg capsule,delayed release(DR/EC) 40 mg PO DAILY clopidogrel 75 mg tablet 75 mg PO QAM atenolol 50 mg tablet 25 mg PO Q12H Rx Instructions: 25mg BID albuterol sulfate 90 mcg/actuation HFA aerosol inhaler 2 puff inhalation Q4-6H PRN (Reason: shortness of breath or wheezing) Qty: 8.5 0RF carvedilol 3.125 mg tablet 3.125 mg PO BID lisinopril 5 mg tablet 5 mg PO DAILY torsemide 20 mg Tablet 20 mg PO DAILY@0800 Patient Comments: Takes 20mg most days, 40mg if weight is up Discharge Orders: Discharge Order (Routine); Ordered 05/26/25 Ordered By: Kimberli Duval Patient Education: Heart Failure (DC), Hyponatremia (DC), Abdominal Pain (ED), Back Pain (GEN) Additional Instructions: Take 40 mg torsemide daily for 3 days, then resume your usual dose of 20 mg daily. Use ice on your back 4 times a day. Using your walker regularly may help with your back pain. You can also use heat on your back (alternating with ice). A clean sock filled with rice and tied off at the end can be put in the microwave for 30-60 seconds until WARM, do not use if HOT. Activity Level: Activity as Tolerated and Use Walker Activity Detail: Consider getting a second walker to leave on your upper level so you will have a walker upstairs and one downstairs. Discharge Diet: Heart Healthy (2 gm sodium, low fat) Follow Up Appointments: Mikala Middleton MD [Primary Care Provider, Family Practice] Referral Note: 5-7 days, BMP Forms: MyHealth Info Instructions
--- NOTE | 2025-05-26 10:42 | PC.SOCIAL ---
Discharge planning: health service worker met with the pt and completed the initial psychosocial assessment with the pt with the following results... Initial Psychosocial Assessment: 1.? Assessment completed with: Patient, Spouse, Child, Friend, Other: Patient. 2.? Pt lives at address and phone number on face sheet? Own home; facility , Other: Yes. Pt's address is correct on the face sheet. 3.?Insurance information? on face sheet is correct? Yes. 4.?Contacts? on face sheet are correct? Yes. 5.? Does pt have a Healthcare Directive, POLST or Guardian? No Guardian. 6.? Who is the pt?s main source/sources of emotional/physical support? and her pet cat. 7.? Prior to admission did pt need assistance? Yes/No Yes. 8.? Who provided and what was the assistance needed? Pt has a cleaning lady that comes once a month. 9.? Was Home Health being provided, by what agency? No. 10. Does pt use/have medical equipment at home already? What? Cane. She is being encouraged to use a walker by PT. 11. Will there be a need for additional assistance at discharge and is this available in previous setting? No. 12. If pt needs to go to a higher level of care, are they open to this and do they have facilities they are interested in? N/A. 13. How would pt plan to transport at discharge? . 14. Is there anyone pt would like foster care social worker to contact to discuss discharge plans? . Social work to follow-up as needed.
== END 2025-05-26 11:30 | disposition home or self-care (01) ==
LOC: ED 20:07 → MEDSURG 20:27
PROVIDERS: Admitting Provider Family Medicine; Emergency Provider Family Medicine; PCP Family Medicine; Visit Provider Family Medicine
DX: R10.9 Unspecified abdominal pain (principal); M54.9 Dorsalgia, unspecified; I50.33 Acute on chronic diastolic (congestive) heart failure; E87.1 Hypo-osmolality and hyponatremia
CPT/HCPCS: 36415; 72128; 73502; 74174; 74177; 80048; 80076; 81001; 83605; 83690; 83735; 83880; 84145; 84484; 85025; 86140; 87086; 96374; 96376; 97161; 99285; A9270; G0378; J1171; J1650; J7030; Q9967